=== PATIENT | female | born 1940 | race Caucasian/White ===

== ENCOUNTER 2020-05-30 11:00 | Outpatient (CLI) | payer OTHER, SELFPAY ==
--- NOTE | ~2020-05-30 | XR_ITS ---
EXAMINATION: XR chest 2V DATE: 05/30/2020 11:25 INDICATION: Shortness of breath. TECHNIQUE: Frontal and lateral views of the chest were obtained. COMPARISON: Chest 2 views 11/20/2018, chest CT 01/10/2019 FINDINGS: A calcified right lung nodule is consistent with old granulomatous disease. There is mild a telectasis in right lower lung zone. There is mild atelectasis at left lung apex. No pleural effusion or pneumothorax. Cardiomegaly is noted. Median sternotomy wires and mediastinal surgical clips are s een, likely from prior coronary artery bypass grafting. There is a retained pacer lead in right ventr icle. IMPRESSION: 1. Chronic mild atelectasis in right lower lung zone. 2. Cardiomegaly. Reviewed, dictated and finalized at location A.
== END 2020-05-30 11:01 | disposition home or self-care (01) ==
PROVIDERS: PCP Family Medicine Adolescent Medicine; Visit Provider Nurse Practitioner Family
DX: R06.02 Shortness of breath (principal); I51.7 Cardiomegaly; R91.8 Other nonspecific abnormal finding of lung field
CPT/HCPCS: 71046

== ENCOUNTER 2020-06-06 08:32 | Outpatient (CLI) | payer OTHER, SELFPAY ==
--- NOTE | 2020-06-08 09:18 | WPDSIXMINUTE ---
Six Minute Walk Six Minute Walk: The patients O2 sats started at 98% and dropped as low as 92% Total walk distance 167.64 meters conclusion: This patient does not qualify for home oxygen therapy.
== END 2020-06-06 08:33 | disposition home or self-care (01) ==
PROVIDERS: PCP Family Medicine Adolescent Medicine; Visit Provider Nurse Practitioner Family
DX: R06.02 Shortness of breath (principal)
CPT/HCPCS: 94618

== ENCOUNTER 2020-06-30 08:49 | Outpatient (CLI) | payer OTHER, SELFPAY ==
--- NOTE | ~2020-06-30 | MM_ITS ---
EXAMINATION: MM screening aundrea RT w ivelisse HISTORY: Screening right mammogram, history of left mastectomy TECHNIQUE: Craniocaudal and mediolateral oblique 3-D tomosynthesis images were obtained and synthetic 2-D images were generated. CAD analysis was submitted and interpreted. COMPARISON: 06/18/2019, 06/05/2019, 06/02/2018, 05/28/2017 BREAST PARENCHYMAL COMPOSITION: The breasts are heterogeneously dense, which may obscure small masses . FINDINGS: Scattered benign-appearing calcifications are present. There is no evidence of suspicious m ass, calcification, or architectural distortion to suggest malignancy. There has been no suspicious i nterval change. IMPRESSION: 1. No mammographic evidence of malignancy. 2. Recommend routine screening mammography in one year. BI-RADS Category 2: Benign finding(s). Reviewed, dictated and finalized at location A. RVISOR POLICY CHANGE CLERKS
== END 2020-06-30 08:50 | disposition home or self-care (01) ==
LOC: ANHIMG 08:52
PROVIDERS: PCP Family Medicine Adolescent Medicine; Visit Provider Internal Medicine Medical Oncology
DX: Z12.31 Encounter for screening mammogram for malignant neoplasm of breast (principal)
CPT/HCPCS: 77063; 77067

== ENCOUNTER 2020-07-19 00:43 | Outpatient (CLI) | payer OTHER, SELFPAY ==
[2020-07-19 19:14] LABS: SARS-CoV-2 RNA PCR Negative
== END 2020-07-19 00:44 | disposition home or self-care (01) ==
LOC: ANHCOVIDDT 00:43
PROVIDERS: PCP Family Medicine Adolescent Medicine; Visit Provider Internal Medicine Critical Care Medicine
DX: Z20.828 Contact with and (suspected) exposure to other viral communicable diseases (principal)
CPT/HCPCS: 87635; C9803; U0003

== ENCOUNTER 2020-07-22 07:40 | Outpatient (CLI) | payer OTHER, SELFPAY ==
--- NOTE | 2020-08-31 11:34 | WPDSLEEPSTUD ---
Sleep Study Date of Study: 07/22/20 Ordering Provider: Randy Stark APRN.,Nicole Garcia Interpreting Physician: Sleep Study Type: BiPAP Titration Height: 1.57 m Weight: 83.461 kg Body Mass Index: 33.6 Neck Circumference: 41.91 cm [place]: 0 Reason for Sleep Study patient has a longstanding diagnosis of sleep apnea, which she has been on CPAP therapy for many years. Last sleep study was in 2012, since then her pressure has been increased to 15 cm. The CPAP download however continues to show presence of many residual events. Patient was there for referred for repeat positive airway pressure evaluation. Sleep History Poor quality of sleep, daytime fatigue. Patient however denies daytime sleepiness. Patient has history of heart disease and hypertension. [facility] Past Medical History Medical History Body mass index (bmi) 36.0-36.9, adult (09/05/18) Body mass index (bmi) 37.0-37.9, adult (12/25/18) Coronary artery disease involving [place] heart Encounter for other specified surgical aftercare Hematoma History of left breast cancer History of PR (myocardial infarction) LAD (lymphadenopathy), axillary Low serum IgG2 subclass level Persistent asthma without complication Recurrent cancer of left breast Recurrent infections Family History Family History Mother Family history of osteoarthritis Father Diabetes mellitus Social History Social History Years smoked: 20 Smoking status: Former smoker Tobacco type: cigarettes Alcohol intake: never Substance use: never Gender identity (if verbalized by the patient): Female Medications Home Medications Medication Instructions Recorded Confirmed Type alirocumab 75 mg/mL subcutaneous 75 mg SUB-Q ONCE 07/04/19 08/25/20 History pen injector allopurinol 100 mg tablet 100 mg PO DAILY 07/04/19 08/25/20 History celecoxib 200 mg capsule 200 mg PO DAILY 07/04/19 08/25/20 History clopidogrel 75 mg tablet 75 mg PO DAILY 07/04/19 08/25/20 History furosemide 20 mg tablet 20 mg PO QAM 07/04/19 08/25/20 History metoprolol succinate 25 mg 25 mg PO DAILY 07/04/19 08/25/20 History tablet,extended release 24 hr multivit with tablet PO 07/04/19 08/25/20 History vmz-xpor-GW-#190herbal 18 mg iron-800 mcg-150 mg tablet spironolactone 25 mg tablet 25 mg PO DAILY 07/04/19 08/25/20 History montelukast 10 mg tablet 10 mg PO DAILY #30 tablet 04/16/20 08/25/20 Rx Sleep Procedure Patient underwent CPAP and subsequently BiPAP titration. Sleep Architecture Total recording time 454 minutes, total sleep time 195 minutes. Sleep efficiency 43%, sleep latency 82 minutes, REM latency 84 minutes. Awake after sleep onset 177 minutes. Stage N1 11%, N2 76.2%, N3 0%, stage R 12.8%. Supine sleep 40.3%, supine REM 7.4% Respiratory Analysis during titration patient had 55 apneas, 7 obstructive and 48 centrals. There were 52 hypopneas. Apnea index was 16.9, central apnea index was 14.8, obstructive apnea index 2.2. Hypopnea index 16, apnea-hypopnea index 32.9. Arousals Sixty-six total arousals with index 8.7, 57 were spontaneous 5 related to respiratory events, 4 .due to sonorous Periodic Limb Movements No leg movements Oximetry Data meeting oxygen saturation 94%, lowest saturation 83%,SaO2<90-16.5Min,SaO2<88-8.6Min. Snoring Profile moderate intermittent snoring noted. Cardiac Profile patient appeared to have sinus rhythm, there were multiple PVCs. Average heart rate 59 beats per minute EEG Profile unremarkable EEG. Assessment and Plan Additional Plan patient was using nasal pillows but her mask was switched to air fit F 30 fullface mask of medium size because of significant mouth breathing. A chinstrap was tried but did not help. Patient was started on CPAP therapy at 5 cm and wa
[2020-08-31 12:05] VITALS: BMI 33.6
== END 2020-07-22 07:41 | disposition home or self-care (01) ==
LOC: ANHCSM 07:41
PROVIDERS: PCP Family Medicine Adolescent Medicine; Visit Provider Nurse Practitioner Family
DX: G47.33 Obstructive sleep apnea (adult) (pediatric) (principal)
CPT/HCPCS: 95811

== ENCOUNTER 2020-08-14 17:29 | Emergency (ER) | payer OTHER, SELFPAY ==
[2020-08-14] VITALS (10 sets, daily range): BP systolic 162–220; BP diastolic 65–98; PULSE 69–80; RESP 18; TEMP 36.3; O2SAT 92–98
--- NOTE | ~2020-08-14 | XR_ITS ---
EXAMINATION: XR lumbar spine 2-3V DATE: 08/14/2020 18:29 INDICATION: Low back pain TECHNIQUE: Anteroposterior and lateral views of the lumbar spine, and cone-down lateral view of the l umbosacral junction were obtained. COMPARISON: None. FINDINGS: There is no fracture, dislocation, or subluxation of the lumbar spine. The vertebral body h eights are maintained. There is mild loss of intervertebral disc space narrowing throughout the lumba r spine. Small degenerative osteophytes project from the anterior endplates of multiple vertebral bod ies. Moderate facet osteoarthritis is noted in the lower lumbar spine. There is an IVC filter. Calcif ied atherosclerosis is noted. Surgical clips in the right upper quadrant are likely from prior cholec ystectomy. IMPRESSION: 1. Mild lumbar spondylosis without acute findings. Reviewed, dictated and finalized at location A. PRESS TENDER
[2020-08-14] MEDS: KETOROLAC 15 MG/ML VIAL (*BKC) IV PUSH (18:15)
--- NOTE | 2020-08-14 19:15 | PC.NURSE ---
Report to OSWALDO Kent, to continue care. Pt reports no relief from the toradol IVP. Dr. Zazueta made aware.
--- NOTE | 2020-08-14 19:18 | ED.BACK ---
HPI - Back Pain/Injury General Chief Complaint: Back Pain/Injury Stated Complaint: BACK PAIN Time Seen by Provider: 08/14/20 17:29 History of Present Illness HPI Narrative: Patient is 79-year-old female who presents to the ER with left-sided back pain. Patient went to her PCP yesterday due to left hip pain. She has not taking pain medication as she does not like taking pain medication reports she only tolerates naproxen. She has no recent trauma to her leg or back. No numbness or tingling going down her leg. No chest pain/shortness of breath/nausea/vomiting/abdominal pain. Pain is worse with movement/bending. Patient recently had her Lasix and spironolactone increased to get water off. Related Data Home Medications Medication Instructions Recorded Confirmed alirocumab 75 mg/mL subcutaneous 75 mg SUB-Q ONCE 07/04/19 06/17/20 pen injector allopurinol 100 mg tablet 100 mg PO DAILY 07/04/19 06/17/20 celecoxib 200 mg capsule 200 mg PO DAILY 07/04/19 06/17/20 clopidogrel 75 mg tablet 75 mg PO DAILY 07/04/19 06/17/20 furosemide 20 mg tablet 20 mg PO QAM 07/04/19 06/17/20 metoprolol succinate 25 mg 25 mg PO DAILY 07/04/19 06/17/20 tablet,extended release 24 hr multivit with tablet PO 07/04/19 06/17/20 [id number] 18 mg iron-800 mcg-150 mg tablet spironolactone 25 mg tablet 25 mg PO DAILY 07/04/19 06/17/20 Allergies Allergy/AdvReac Type Severity Reaction Status Date / Time erythromycin base Allergy Severe Itching Verified 08/14/20 17:52 ethyl alcohol Allergy Severe Itching Verified 08/14/20 17:52 amoxicillin Allergy Unknown Unknown Verified 08/14/20 17:52 clavulanic acid Allergy Unknown Unknown Verified 08/14/20 17:52 clonidine Allergy Unknown Unknown Verified 08/14/20 17:52 codeine Allergy Unknown Unknown Verified 08/14/20 17:52 lisinopril Allergy Unknown Unknown Verified 08/14/20 17:52 metronidazole Allergy Unknown Unknown Verified 08/14/20 17:52 morphine Allergy Unknown Unknown Verified 08/14/20 17:52 Penicillins Allergy Unknown Unknown Verified 08/14/20 17:52 Xbbozsl-Pth-Zkl Reductase Allergy Unknown Unknown Verified 08/14/20 17:52 Inhibitor adhesive AdvReac Mild Itching Verified 08/14/20 17:52 Review of Systems Review of Systems: All systems reviewed & are unremarkable except as noted in HPI and below Constitutional: Constitutional: Denies chills, Denies fever(s) and Denies weakness Cardiovascular: Cardiovascular: Denies chest pain and Denies radiating jaw, neck or arm pain Respiratory: Respiratory: Denies cough, Denies dyspnea and Denies wheezing Gastrointestinal: Gastrointestinal: Denies abdominal pain, Denies nausea and Denies vomiting Musculoskeletal: Musculoskeletal: Reports back pain, Reports arthralgias, Denies joint swelling and Denies muscle cramps Neurologic: Denies focal weakness and Denies numbness PMFSH Past Medical History Medical History Body mass index (bmi) 36.0-36.9, adult (09/05/18) Body mass index (bmi) 37.0-37.9, adult (12/25/18) Coronary artery disease involving [place] heart Encounter for other specified surgical aftercare Hematoma History of left breast cancer History of [place] (myocardial infarction) LAD (lymphadenopathy), axillary Low serum IgG2 subclass level Persistent asthma without complication Recurrent cancer of left breast Recurrent infections Family History Family History Mother Family history of osteoarthritis Father Diabetes mellitus Social History Social History Years smoked: 20 Smoking status: Former smoker Tobacco type: cigarettes Alcohol intake: never Substance use: never Gender identity (if verbalized by the patient): Female Exam Narrative: Exam Narrative: GENERAL: Well-appearing, well-nourished, and in no acute distress. HEAD: Normocephalic, atraumatic. CHEST: C
[2020-08-14 19:31] LABS: Anion Gap 11 mmol/L (8-16); Blood Urea Nitrogen 14 mg/dL (7-17); Calcium 9.3 mg/dL (8.4-10.2); Carbon Dioxide 27 mmol/L (22-30); Chloride 99 mmol/L (98-107); Estimated CRCL calculation 42 ml/min; Estimated Glomerular Filt Rate 53; Glucose 119 mg/dL (65-105); Potassium 2.8 mmol/L (3.4-5.0); Sodium 137 mmol/L (137-145)
[2020-08-14] MEDS: CYCLOBENZAPRINE HCL 10 MG TABLET 5 MG PO (20:25)
[2020-08-14] MEDS: POTASSIUM CHLORIDE 20 MEQ TABLET 40 MEQ PO (20:25)
== END 2020-08-14 20:48 | disposition home or self-care (01) ==
PROVIDERS: Emergency Provider Emergency Medicine; PCP Family Medicine Adolescent Medicine
DX: M54.5 Low back pain (principal); E87.6 Hypokalemia; R25.2 Cramp and spasm; I25.10 Atherosclerotic heart disease of native coronary artery without angina pectoris; Z85.3 Personal history of malignant neoplasm of breast; I25.2 Old myocardial infarction; J45.909 Unspecified asthma, uncomplicated; Z87.891 Personal history of nicotine dependence
CPT/HCPCS: 36415; 72100; 80048; 96374; 99284; A9270; J1885

== ENCOUNTER 2020-09-08 08:08 | Outpatient (CLI) | payer OTHER, SELFPAY ==
--- NOTE | ~2020-09-08 | NM_ITS ---
EXAMINATION: NM pulmonary perfusion DATE: 09/08/2020 10:43 INDICATION: Shortness of breath COMPARISON: CT dated 09/08/2020 TECHNIQUE: 5.5 mCi Tc-99m MAA by intravenous route. Scintigraphic images of the chest were obtained. FINDINGS: Cardiomegaly. Small perfusion defect at the right middle lobe corresponding to a thin band of atelect asis on prior CT. Additional small perfusion defect along the caudal aspect of the left major fissure corresponding to a paracardial fat on prior CT . No other perfusion defects appreciated. IMPRESSION: 1. Low probability for pulmonary embolism. 2. Cardiomegaly. Reviewed, dictated and finalized at location B. RATOR INSERTER
--- NOTE | ~2020-09-08 | CT_ITS ---
EXAMINATION: CT diagnostic chest wo con EXAM DATE: 09/08/2020 09:07 INDICATION: R06.02 - Shortness of breath . Sided breast cancer. TECHNIQUE: Spiral CT of the chest without contrast. Axial, coronal and sagittal images were reviewe d. Coronal maximum intensity pixel images of chest reviewed. The dose-length product (DLP) for this examination was 715.87 mGy-cm. The exposure was tailored according to patient size (auto mA exposur e control), and iterative reconstruction (ASIR) was used as additional dose reduction technique. Comp arison is made to prior examination from 01/10/2019. FINDINGS: There is right lower lobe granuloma. Linear right basilar subsegmental atelectasis or scar ring along the minor and major fissure confluence with interval improvement. The main, central pulmon anuradha arteries are dilated which can indicate elevated pulmonary arterial pressure, pulmonary arterial hypertension. Trace pleural effusions. Tracheobronchial tree is patent. There is no mediastinal, hilar or axillary lymphadenopathy. There is no pneumothorax. Pacemaker/AICD lead. Surgical changes from left mastectomy. There is cardiomegaly. There is pulmonary vascular congestion. There are ster notomy wires, and cardiac/coronary surgical changes. Correlate with prior history. There is small sli ding gastroesophageal hiatal hernia. Upper abdomen is unremarkable. There is mild to moderate thor acic spondylosis without osteoblastic or osteolytic lesions identified. IMPRESSION: 1. Cardiomegaly, congestion. Pulmonary arterial hypertension. 2. Linear right basilar subsegmental atelectasis. Reviewed, dictated and finalized at location A. INUOUS YARN DYEING MACHINE OPERATOR
--- NOTE | ~2020-09-08 | XR_ITS ---
EXAMINATION: XR chest 2V EXAM DATE: 09/08/2020 08:59 INDICATION: R06.02 - Shortness of breath TECHNIQUE: Frontal and lateral projections of the chest obtained and reviewed. Comparison is made to prior examination from 05/30/2020. FINDINGS: Cardiac pacemaker lead. Sternotomy wires are present without findings to suggest sternal d ehiscence. Right lower lobe granuloma. The cardiac silhouette is enlarged. There is pulmonary vascula r congestion. No confluent consolidation, pneumothorax or pleural effusion suspected. There is aortic arteriosclerosis. There are mild bony degenerative changes. IMPRESSION: Cardiomegaly, pulmonary vascular congestion. Reviewed, dictated and finalized at location A. CAL SALES REPRESENTATIVE
--- NOTE | ~2020-09-08 | US_ITS ---
EXAMINATION: US venous doppler [facility] DATE: 09/08/2020 08:51 INDICATION: Lower limb swelling TECHNIQUE: Grayscale ultrasound images without and with compression and Doppler ultrasound images of the bilateral lower extremity veins were obtained. COMPARISON: None. FINDINGS: The visualized portions of right common femoral vein, profunda (deep) femoral vein, femoral vein, pop liteal vein, posterior tibial veins, peroneal veins, gastrocnemius vein and greater saphenous vein ou tflow are patent. The visualized portions of left common femoral vein, profunda femoral vein, femoral vein, popliteal v ein, posterior tibial veins, peroneal veins, gastrocnemius vein and greater saphenous vein outflow ar e patent. IMPRESSION: 1. No deep venous thrombosis in either lower limb. Reviewed, dictated and finalized at location B. MBLER CARDS AND ANNOUNCEMENTS
== END 2020-09-08 08:09 | disposition home or self-care (01) ==
PROVIDERS: PCP Family Medicine Adolescent Medicine; Visit Provider Nurse Practitioner Family
DX: R06.02 Shortness of breath (principal); R60.0 Localized edema; I51.7 Cardiomegaly; J84.9 Interstitial pulmonary disease, unspecified; I27.20 Pulmonary hypertension, unspecified; J98.11 Atelectasis
CPT/HCPCS: 71046; 71250; 78580; 93970; A9540

== ENCOUNTER 2020-10-27 15:58 | Emergency (ER) | payer OTHER, SELFPAY ==
[2020-10-27] VITALS (8 sets, daily range): BP systolic 121–136; BP diastolic 61–95; PULSE 56–70; RESP 18–32; TEMP 36.7; O2SAT 97–99
--- NOTE | ~2020-10-27 | XR_ITS ---
EXAMINATION: XR chest 1V portable EXAM DATE: 10/27/2020 17:14 INDICATION: Chest congestion. History heart attack, hypertension, asthma. TECHNIQUE: Portable AP frontal chest x-ray was obtained. Comparison is made to prior examination from 09/08/2020. FINDINGS: Lead from cardiac pacemaker/AICD device without pack, The tip of this appears quite low ove rlying the left upper quadrant, but this could be projectional, given how low the sternotomy wires al so appear compared to prior studies. There is cardiomegaly and pulmonary vascular congestion. Ill-defined bilateral airspace disease which is likely edema or infection. Sternotomy wires. No pneumothorax or pleural effusion. There are bony degenerative changes. There is aortic arteriosclerosis. IMPRESSION: Findings consistent with CHF exacerbation. Infection not excludable. Reviewed, dictated and finalized at location A. IMPRESSION: Findings consistent with CHF exacerbation. Infection not excludable .
--- NOTE | 2020-10-27 16:05 | ECG_ITS ---
Measurements Intervals [place] Rate: 63 P: 204 PA: 148 QRS: 0 QRSD: 104 T: 140 QT: 402 QTc: 412 Interpretive Statements SINUS RHYTHM DELAYED PRECORDIAL R/S TRANSITION POSSIBLE LEFT VENTRICULAR HYPERTROPHY INFERIOR INFARCT, AGE INDETERMINATE BORDERLINE ST-T WAVE ABNORMALITY- LAT/HIGH LAT LEADS BASELINE ARTIFACT- I, II, III, AVR, AVL, AVF, V4-V6 ABNORMAL ECG Electronically Signed On 10-29-2020 13:00:36 CDT by Jc Barbosa D.O.
--- NOTE | 2020-10-27 16:14 | ED.GENADULT ---
HPI - General Adult General Chief complaint: Dizziness Stated complaint: dizzy Time Seen by Provider: 10/27/20 16:08 Source: patient and family (daughter) Mode of arrival: ambulatory Limitations: no limitations History of Present Illness HPI narrative: 80-year-old female that called her daughter about 2 hours ago stating that she was very dizzy. She did not fall. She does deny any recent illness or change in medication. She is concerned however that she may have mistakenly taken 2 of her heart pills this morning. She states while she is laying still she feels fine. She does get dizzy if she turns her head. Onset (ago): hour(s) Severity: mild Exacerbating factors: movement Associated symptoms: denies other symptoms Related Data Home Medications Medication Instructions Recorded Confirmed alirocumab 75 mg/mL subcutaneous 75 mg SUB-Q ONCE 07/04/19 08/25/20 pen injector allopurinol 100 mg tablet 100 mg PO DAILY 07/04/19 08/25/20 celecoxib 200 mg capsule 200 mg PO DAILY 07/04/19 08/25/20 clopidogrel 75 mg tablet 75 mg PO DAILY 07/04/19 08/25/20 furosemide 20 mg tablet 20 mg PO QAM 07/04/19 08/25/20 metoprolol succinate 25 mg 25 mg PO DAILY 07/04/19 08/25/20 tablet,extended release 24 hr multivit with tablet PO 07/04/19 08/25/20 [id number]-KK-#[id number] 18 mg iron-800 mcg-150 mg tablet spironolactone 25 mg tablet 25 mg PO DAILY 07/04/19 08/25/20 Allergies Allergy/AdvReac Type Severity Reaction Status Date / Time erythromycin base Allergy Severe Itching Verified 10/27/20 16:12 ethyl alcohol Allergy Severe Itching Verified 10/27/20 16:12 amoxicillin Allergy Unknown Unknown Verified 10/27/20 16:12 clavulanic acid Allergy Unknown Unknown Verified 10/27/20 16:12 clonidine Allergy Unknown Unknown Verified 10/27/20 16:12 codeine Allergy Unknown Unknown Verified 10/27/20 16:12 lisinopril Allergy Unknown Unknown Verified 10/27/20 16:12 metronidazole Allergy Unknown Unknown Verified 10/27/20 16:12 morphine Allergy Unknown Unknown Verified 10/27/20 16:12 Penicillins Allergy Unknown Unknown Verified 10/27/20 16:12 Cgxldfi-Bpz-Rpd Reductase Allergy Unknown Unknown Verified 10/27/20 16:12 Inhibitor adhesive AdvReac Mild Itching Verified 10/27/20 16:12 Review of Systems Review of Systems: All systems reviewed & are unremarkable except as noted in HPI and below PMFSH Past Medical History Medical History Body mass index (bmi) 36.0-36.9, adult (09/05/18) Body mass index (bmi) 37.0-37.9, adult (12/25/18) Coronary artery disease involving [place] heart Encounter for other specified surgical aftercare Hematoma History of left breast cancer History of [place] (myocardial infarction) LAD (lymphadenopathy), axillary Low serum IgG2 subclass level Persistent asthma without complication Recurrent cancer of left breast Recurrent infections Family History Family History Mother Family history of osteoarthritis Father Diabetes mellitus Social History Social History Years smoked: 20 Smoking status: Former smoker Tobacco type: cigarettes Alcohol intake: never Substance use: never Gender identity (if verbalized by the patient): Female Exam Const: General: no acute distress and alert HENMT: Head: normal to inspection Eyes: Conjunctivae: conjunctivae normal Pupils: Equal, round and reactive pupils present Resp: Effort & Inspection: labored (slightly) Auscultation: rales (bases) Cardio: Rate: bradycardic Rhythm: regular rhythm GI: GI Palp: Yes Soft to palpation Skin: General skin exam: normal color Extrem: General: edema bilateral (feet and hands) Psych: Mental Status: mental status grossly normal Course Course Emergency Course: Patient has had extensive cardiac work-up last year that showed mild pulmonary hypertension, normal right hea
[2020-10-27 16:30] LABS: Basophils Absolute Auto 0.1 K/mm3 (0.0-0.1); Basophils Percent Auto 0.5 % (0.2-1.2); Eosinophils Absolute Auto 0.1 K/mm3 (0-0.3); Eosinophils Percent Auto 1.1 % (0-4.4); Hematocrit 45.7 % (37.0-47.0); Hemoglobin 14.3 g/dL (12.0-15.0); Immature Granulocyte Absolute 0.04 K/mm3 (0.00-0.031); Immature Granulocyte Percent A 0.4 % (0-0.5); Immature Platelet Fraction Pct 3.9 % (0.9-11.2); Lymphocytes Absolute Auto 2.32 K/mm3 (0.9-3.2); Lymphocytes Percent Auto 22.8 % (18.3-44.2); Mean Corpuscular HGB Conc 31.3 g/dl (32-36); Mean Corpuscular Hemoglobin 25.2 pg (26-34); Mean Corpuscular Volume 80.6 fl (80-100); Mean Platelet Volume 10.9 fl (7.4-10.4); Monocytes Absolute Auto 1.1 K/mm3 (0.1-0.6); Monocytes Percent Auto 10.3 % (2.6-8.5); Neutrophils Absolute Auto 6.6 K/mm3 (1.3-6.7); Neutrophils Percent Auto 64.9 % (45.5-73.1); Platelet Count Result 232 k/mm3 (150-375); Red Blood Count 5.67 M/mm3 (4.2-5.4); Red Cell Distribution Width 14.8 % (11.5-14.5); White Blood Count 10.2 K/mm3 (4.5-10.0)
[2020-10-27 17:03] LABS: Alanine Aminotransferase 21 U/L (4-35); Albumin Level 4.4 g/dL (3.5-5.1); Alkaline Phosphatase 118 U/L (38-126); Anion Gap 13 mmol/L (8-16); Aspartate Amino Transferase 29 U/L (14-36); Bilirubin,Total 1.1 mg/dL (0.2-1.3); Blood Urea Nitrogen 37 mg/dL (7-17); Calcium 9.4 mg/dL (8.4-10.2); Carbon Dioxide 22 mmol/L (22-30); Chloride 106 mmol/L (98-107); Estimated CRCL calculation 30 ml/min; Estimated Glomerular Filt Rate 36; Glucose 127 mg/dL (65-105); Potassium 4.1 mmol/L (3.4-5.0); Sodium 141 mmol/L (137-145)
[2020-10-27 17:15] LABS: Troponin I 0.014 ng/mL (0.000-0.034)
== END 2020-10-27 18:44 | disposition home or self-care (01) ==
PROVIDERS: Physician Assistant; Emergency Provider Emergency Medicine; PCP Family Medicine Adolescent Medicine
DX: I50.9 Heart failure, unspecified (principal); T65.91XA Toxic effect of unspecified substance, accidental (unintentional), initial encounter; I25.10 Atherosclerotic heart disease of native coronary artery without angina pectoris; J45.909 Unspecified asthma, uncomplicated; Z85.3 Personal history of malignant neoplasm of breast; I25.2 Old myocardial infarction; Z87.891 Personal history of nicotine dependence; R94.31 Abnormal electrocardiogram [ECG] [EKG]
CPT/HCPCS: 36415; 71045; 80053; 84484; 85025; 85055; 93005; 99284

== ENCOUNTER 2020-12-10 14:50 | Outpatient (RCR) | payer OTHER, SELFPAY ==
--- NOTE | 2020-12-10 16:08 | PTOPEVAL ---
PHYSICAL THERAPY EVALUATION AND PLAN OF CARE 12-10-20 Thank you for referring Jacqueline Duenas to [facility] for the diagnosis of L hip trochanteric bursitis. Jacqueline's plan of care for therapy? is 0-2x/week for 4 weeks. She is independent with the issued HEP and is not having any hip pain. She is to call if she had any questions or needs any additional treatment. Please review, sign, date and return this plan of care NICK. I agree with and certify that the following plan of care is medically necessary. Referring Physician Date Attending Provider: Michael Jeter MD PT Outpatient Evaluation Document 12/10/20 15:10 VANESSA (Rec: 12/10/20 16:08 VANESSA [id number]) Past Medical History Source of Past Medical History Patient Neurological History Hx Neurological Disorders No Significant History Cardiovascular History Hx Coronary Stent Yes Hx Hypertension Yes: meds Respiratory History Hx Sleep Apnea Yes: have BiPAP for sleeping Hx Other Respiratory Disorders Yes: had sinus surgery Gastrointestinal History Hx Cholecystectomy Yes Musculoskeletal History Hx Orthopedic Surgery Yes: B TKR; Reproductive History Hx Hysterectomy Yes Other History Hx Cancer Yes: breast cancer 2x- Hx Chemotherapy Yes Hx Radiation Therapy Yes Evaluation Information Problem Diagnosis L hip trochanteric bursitis Onset November 2019 Subjective Information gradual increase in hip pain, Query Text:As Reported By Patient/ chronic hip pain; had Family injection 11-20-20 and pain is no longer in hip; Diagnostic Tests X-Rays For This Problem Yes: per pt- bursitis of hip Previous Treatments Previous Treatments For This Problem no previous PT Prior Level of Function Activity Level (Last 3 Months) Occupation retired Activity of Daily Living Ability Independent Indoor/Home Mobility Independent Community Mobility Independent Stairs Ability Independent Functional Cognition (Planning, Shopping Independent , Taking Medications) Cooking Yes Cleaning No Laundry Yes Shopping Yes Driving Yes Home Setting Home Type House Living Situation With Minor Child Mobility Assistive Devices (Used Last 3 None Months) Comments Additional Prior Level of Function 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
--- NOTE | 2021-01-16 16:23 | PCPTNOTE ---
PHYSICAL THERAPY DISCHARGE 01-16-21 Attending Provider: Michael Jeter MD Patient:Jacqueline Duenas Date of :1940 Mrs. Duenas has not returned for any further treatments since the PT evaluation 12/10/2020,for the diagnosis of L hip trochanteric bursitis. Therefore she will be discharged at this time. She was instructed on a home exercise program and had decreased pain after the injection. And was to call if she needed additional therapy after the eval. The goals were not addressed. Thank you for referring Jacqueline to [facility]. Please review, sign, date and return this discharge summary NICK. I have been updated about the patient's current status and I agree with discharge from the above service at this time. Referring Physician Date
== END 2021-01-19 09:31 | disposition home or self-care (01) ==
LOC: ANHPT 14:50
PROVIDERS: PCP Family Medicine Adolescent Medicine; Visit Provider Orthopaedic Surgery
DX: M70.62 Trochanteric bursitis, left hip (principal)
CPT/HCPCS: 97161

== ENCOUNTER 2020-12-15 10:07 | Inpatient (IN) | payer OTHER, SELFPAY ==
[2020-12-15] VITALS (27 sets, daily range): BP systolic 140–210; BP diastolic 78–168; PULSE 68–95; RESP 18–28; TEMP 35.9–36.8; O2SAT 91–100; BMI 36.6
--- NOTE | ~2020-12-15 | US_ITS ---
EXAMINATION: US venous doppler [facility] DATE: 12/16/2020 08:56 INDICATION: Bilateral lower limb swelling TECHNIQUE: [place] scale images without and with compression and Doppler images of the bilateral lower e xtremity veins were obtained. COMPARISON: 09/08/2020 FINDINGS: The right common femoral vein, [place] femoral vein, femoral vein, popliteal vein, peroneal trunk, p osterior tibial veins, and greater saphenous vein are patent. The left common femoral vein, profunda femoral vein, femoral vein, popliteal vein, peroneal trunk, po sterior tibial veins, and greater saphenous vein are patent. IMPRESSION: 1. Patent bilateral lower extremity veins. No evidence of deep venous thrombosis. Reviewed, dictated and finalized at location A. IMPRESSION: 1. Patent bilateral lower extremity veins. No evidence of deep venous thrombosi s.
--- NOTE | ~2020-12-15 | XR_ITS ---
EXAMINATION: XR chest 2V DATE: 12/15/2020 11:21 INDICATION: Hypertension. Dizziness. Lower extremity weakness. TECHNIQUE: frontal and lateral views of the chest were obtained. COMPARISON: Chest radiograph dated 10/27/2020 FINDINGS: Interval decrease in opacities in the bilateral lower lung zone now with relatively streaky appearanc e favoring atelectasis over pneumonia. Calcified right lower lobe nodule along with calcified right h ilar lymph nodes consistent with old granulomatous disease. No pleural effusion or pneumothorax. Card iomegaly. Single lead pacemaker/AICD which extends from the left pectoral region with distal lead tip projecting over the expected location of the apex of the right ventricle. The pacemaker device has b een explanted. Median sternotomy wires and mediastinal surgical clips are seen, likely from prior cor onary artery bypass grafting. IMPRESSION: 1. Interval decrease in now mild bibasilar opacities and favor atelectasis over pneumonia. 2. Cardiomegaly. Reviewed, dictated and finalized at location A.
--- NOTE | ~2020-12-15 | CT_ITS ---
EXAMINATION: CT brain wo con INDICATION: Dizziness and weakness, history of breast cancer COMPARISON: 07/20/2019 TECHNIQUE: Standard unenhanced head CT. The dose-length product (DLP) was 605.33 mGy-cm. The mA was a djusted according to patient size. Iterative reconstruction technique was employed. FINDINGS: There is no acute intraparenchymal hemorrhage. No evidence of mass lesion. A small area of loss of torres-white differentiation in the left parietal lobe, likely old infarct. There is mild periv entricular and subcortical hypodensity probably related to small vessel ischemic disease. There is mi ld prominence of the sulci and ventricles related to cerebral atrophy. Intracranial calcified cerebra l atherosclerosis is noted. There are no extra-axial collections. There is no mass effect or midline shift. Changes in the globes are likely from ocular lens surgery. There is near complete opacificati on of the right maxillary sinus. IMPRESSION: 1. No acute intracranial abnormality. 2. Age related findings. 3. 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 Reviewed, dictated and finalized at location A.
--- NOTE | 2020-12-15 10:38 | ECG_ITS ---
Measurements Intervals [place] Rate: 77 P: 58 MD: 208 QRS: -13 QRSD: 103 T: 121 QT: 364 QTc: 413 Interpretive Statements SINUS RHYTHM WITH SINUS ARRHYTHMIA DELAYED PRECORDIAL R/S TRANSITION LEFT VENTRICULAR HYPERTROPHYWITH ST-T CHANGE INFERIOR INFARCT, AGE INDETERMINATE ABNORMAL ECG Electronically Signed On 12-15-2020 13:29:23 CDT by Jc Barbosa D.O.
--- NOTE | 2020-12-15 10:40 | PC.NURSE ---
since yesterday I couldn't walk, felt dizzy and weak , does not use ambulatory aids not unless I have to . Compliant with meds, states BLE have been more swollen, for about a month or more . Hypertensive BP 193/92 the top number usually runs 140's , denies CP, BUTLER, denies home O2.
[2020-12-15] MEDS: MECLIZINE HCL 25 MG TABLET PO (10:48)
[2020-12-15] MEDS: hydrALAZINE HCL 20 MG/ML VIAL 10 MG IV PUSH ×2 (11:10→18:42)
[2020-12-15 11:39] LABS: Basophils Percent Auto 0.5 % (0.2-1.2); Eosinophils Absolute Auto 0.1 K/mm3 (0-0.3); Eosinophils Percent Auto 1.7 % (0-4.4); Hematocrit 41.9 % (37.0-47.0); Hemoglobin 12.9 g/dL (12.0-15.0); Immature Granulocyte Absolute 0.02 K/mm3 (0.00-0.031); Immature Granulocyte Percent A 0.3 % (0-0.5); Lymphocytes Absolute Auto 1.52 K/mm3 (0.9-3.2); Lymphocytes Percent Auto 23.6 % (18.3-44.2); Mean Corpuscular HGB Conc 30.8 g/dl (32-36); Mean Corpuscular Hemoglobin 24.2 pg (26-34); Mean Corpuscular Volume 78.8 fl (80-100); Mean Platelet Volume 10.1 fl (7.4-10.4); Monocytes Absolute Auto 0.6 K/mm3 (0.1-0.6); Monocytes Percent Auto 9.5 % (2.6-8.5); Neutrophils Absolute Auto 4.2 K/mm3 (1.3-6.7); Neutrophils Percent Auto 64.4 % (45.5-73.1); Platelet Count Result 176 k/mm3 (150-375); Red Blood Count 5.32 M/mm3 (4.2-5.4); Red Cell Distribution Width 17.7 % (11.5-14.5); White Blood Count 6.4 K/mm3 (4.5-10.0)
[2020-12-15 11:50] LABS: Anion Gap 6 mmol/L (8-16); Blood Urea Nitrogen 24 mg/dL (7-17); Calcium 9.6 mg/dL (8.4-10.2); Carbon Dioxide 26 mmol/L (22-30); Chloride 107 mmol/L (98-107); Estimated CRCL calculation 39 ml/min; Estimated Glomerular Filt Rate 48; Glucose 101 mg/dL (65-105); Potassium 3.4 mmol/L (3.4-5.0); Sodium 139 mmol/L (137-145)
[2020-12-15 11:59] LABS: NT Pro B Type Natriuretic Pept 5160 pg/mL (5-100)
[2020-12-15 12:11] LABS: Add Urine Microscopic? YES; Appearance Urine Cloudy (Clear); Bacteria Urine 2+ /hpf; Bilirubin Urine Negative (Negative); Blood Urine Negative (Negative); Color Urine Yellow (Yellow); Glucose Urine UA Negative (Negative); Ketones Urine Negative (Negative); Leukocyte Esterase Ur 1+ LEU/UL (Negative); Mucus Urine Rare /lpf; Nitrate Urine Positive (Negative); Protein Urine 3+ mg/dL (Negative); Specific Grav Ur 1.015 (1.001-1.035); Squamous Epithelial Cell Urine Moderate /hpf (Few)
[2020-12-15] MEDS: FUROSEMIDE INJ 40 MG/4 ML VIAL IV PUSH ×2 (12:57→20:33)
--- NOTE | 2020-12-15 13:06 | ED.GENADULT ---
HPI - General Adult General Chief complaint: Dizziness Stated complaint: DIZZY,WEAKNESS History of Present Illness HPI narrative: Patient is an 80-year-old female who presents ER with shortness of breath and dizziness. Patient reports she has some chronic shortness of breath that is increased over the last week and associated with increasing leg edema. This morning she got up to walk and only made a few steps before becoming even more short of breath as well as dizzy. She is not having headache/nausea/vomiting. She does report chronic sinus congestion with frontal sinus pressure. No ear pain. No history of peripheral vertigo per patient. Denies fevers or chills or sweats. No productive cough. Reports compliance with home medications. Related Data Home Medications Medication Instructions Recorded Confirmed alirocumab 75 mg/mL subcutaneous 75 mg SUB-Q ONCE 07/04/19 12/05/20 pen injector allopurinol 100 mg tablet 100 mg PO DAILY 07/04/19 12/05/20 celecoxib 200 mg capsule 200 mg PO DAILY 07/04/19 12/05/20 clopidogrel 75 mg tablet 75 mg PO DAILY 07/04/19 12/05/20 furosemide 20 mg tablet 20 mg PO QAM 07/04/19 12/05/20 metoprolol succinate 25 mg 25 mg PO DAILY 07/04/19 12/05/20 tablet,extended release 24 hr multivit with tablet PO 07/04/19 12/05/20 [id number] 18 mg iron-800 mcg-150 mg tablet spironolactone 25 mg tablet 25 mg PO DAILY 07/04/19 12/05/20 Allergies Allergy/AdvReac Type Severity Reaction Status Date / Time erythromycin base Allergy Severe Itching Verified 12/15/20 10:15 ethyl alcohol Allergy Severe Itching Verified 12/15/20 10:15 amoxicillin Allergy Unknown Unknown Verified 12/15/20 10:15 clavulanic acid Allergy Unknown Unknown Verified 12/15/20 10:15 clonidine Allergy Unknown Unknown Verified 12/15/20 10:15 codeine Allergy Unknown Unknown Verified 12/15/20 10:15 lisinopril Allergy Unknown Unknown Verified 12/15/20 10:15 metronidazole Allergy Unknown Unknown Verified 12/15/20 10:15 morphine Allergy Unknown Unknown Verified 12/15/20 10:15 Penicillins Allergy Unknown Unknown Verified 12/15/20 10:15 [id number] Reductase Allergy Unknown Unknown Verified 12/15/20 10:15 Inhibitor adhesive AdvReac Mild Itching Verified 12/15/20 10:15 Review of Systems Review of Systems: All systems reviewed & are unremarkable except as noted in HPI and below Constitutional: Constitutional: Denies chills, Denies fever(s) and Denies weakness ENT: Reports dizziness, Reports nasal congestion and Denies sore throat Cardiovascular: Cardiovascular: Denies chest pain, Denies rapid heart rate and Denies radiating jaw, neck or arm pain Respiratory: Respiratory: Denies cough, Reports dyspnea and Denies wheezing Gastrointestinal: Gastrointestinal: Denies abdominal pain, Denies nausea and Denies vomiting Neurologic: Denies headache(s), Denies focal weakness and Denies numbness PMFSH Past Medical History Medical History Body mass index (bmi) 36.0-36.9, adult (09/05/18) Body mass index (bmi) 37.0-37.9, adult (12/25/18) Coronary artery disease involving [place] heart Encounter for other specified surgical aftercare Hematoma History of left breast cancer History of [place] (myocardial infarction) LAD (lymphadenopathy), axillary Low serum IgG2 subclass level Persistent asthma without complication Recurrent cancer of left breast Recurrent infections Family History Family History Mother Family history of osteoarthritis Father Diabetes mellitus Social History Social History Years smoked: 20 Smoking status: Former smoker Tobacco type: cigarettes Alcohol intake: never Substance use: never Gender identity (if verbalized by the patient): Female Exam Narrative: Exam Narrative: GENERAL: Well-appearing, well-nourished, and in no acute distre
--- NOTE | 2020-12-15 14:10 | ADMGEN ---
This patient, Jacqueline Duenas, was admitted to IMU Room 207-01. Patient/family oriented to hospital policies and general routines including ID bracelet, bed and alarms, visiting hours, pain management, procedures, bathroom and other care routines, personal items, smoking policy, room service/diet, and visiting hours. Information on how to activate the Rapid Response Team has been discussed. Patient/Family are encouraged to report perceived risks to care and to ask questions if they do not understand what they are told or what they should do.
[2020-12-15] MEDS: ACETAMINOPHEN 325 MG TABLET 650 MG PO (20:38)
--- NOTE | 2020-12-15 21:30 | PM.IMHP ---
H&P: HPI History of Present Illness Date/Time: 12/15/20 21:30 Chief Complaint: Weak, dizzy, short of breath. Narrative: This is a pleasant 80-year-old female with combined systolic and diastolic congestive heart failure, coronary artery disease with history of STEMI status post CABG, ischemic cardiomyopathy status post ICD insertion and subsequent generator explant, pulmonary hypertension, sleep apnea on CPAP, and hypertension who presented to the emergency department earlier this morning via EMS from home with reports of weakness, dizziness, and shortness of breath. She has mild chronic dyspnea on exertion and lower extremity edema, both which have gotten worse over the past 1 week or so. Upon waking this morning she was feeling increasingly short of breath, dizzy, and weak, prompting the call to 911. She was markedly hypertensive in the emergency department with a blood pressure as high as 210/113 and a chest x-ray showed findings of likely atelectasis. There was no obvious pulmonary congestion however given her edema and elevated proBNP she has been admitted for suspected CHF exacerbation. She has not been hypoxic however was placed on oxygen for her comfort. At the time my evaluation she is feeling better and has gotten up multiple times to urinate. She goes on to say that she does not sleep well most nights and has to get up every couple of hours to use the bathroom due to her diuretics. She denies chest pain, pleuritic pain, and feelings of racing heart. No calf pain or tenderness. She also denies fever, chills, sweats, nausea, and vomiting. No dysphagia or concerns for aspiration. No sick contacts or exposure to those positive for COVID-19. Review of Systems Review of Systems: Narrative: Twelve systems were reviewed with pertinent positives and negatives as per HPI. She frequently has sinus congestion and pressure which is unchanged. No syncope or near syncope. No history of venous thromboembolism. She denies dysuria. No vertigo, auditory visual changes, focal weakness, or paresthesias. Except as documented, all other systems were reviewed and are negative. [facility] Past Medical History Medical History (Updated 12/16/20 @ 00:35 by Terra Alonzo PA-C) Combined congestive systolic and diastolic heart failure Echocardiogram in February 2020 showed moderate global left ventricular systolic dysfunction with diastolic dysfunction and ejection fraction of 40%. There were some hypokinetic segments of the left ventricle noted. Mild aortic stenosis and moderate pulmonary hypertension were also noted. Coronary artery disease involving [place] heart History of left breast cancer Status post mastectomy and chemoradiation. History of [place] (myocardial infarction) (~2013) Hypertension Hypothyroidism Ischemic cardiomyopathy Status post ICD insertion and subsequent generator explant. Low serum IgG2 subclass level Obstructive sleep apnea On CPAP with nasal pillows. Persistent asthma without complication Pulmonary hypertension Surgical History Surgical History (Updated 12/16/20 @ 00:18 by Terra Alonzo PA-C) History of bilateral knee arthroplasty History of cataract extraction History of cholecystectomy History of coronary artery bypass graft (2013) History of left mastectomy (2011) History of partial colectomy (2013) History of sinus surgery (2015) History of thyroidectomy Family History Family History (Updated 12/16/20 @ 00:21 by Terra Alonzo PA-C) Mother Family history of osteoarthritis Father Diabetes mellitus Son Muscular dystrophy Social History Social History (Updated 12/16/20 @ 00:21 by Terra Alonzo PA-C) Social History: Surrogate decision maker: Ирина Duenas and Adela Nielsen, daughters. Code status: Full code. Smoking packs per day: 0.25 Smoking cigarettes per day: 5.0 Years smoked: 8 Smoking pack-years: 2.00 Smoking status: Former smoker Tobacco type: cigarettes Alcohol intake:
[2020-12-16] VITALS (16 sets, daily range): BP systolic 148–158; BP diastolic 51–91; PULSE 58–80; RESP 16–22; TEMP 36.1–36.8; O2SAT 96–100
[2020-12-16 01:32] LABS: D Dimer 0.71 ug/mL (<0.48)
[2020-12-16] MEDS: POTASSIUM CHLORIDE 20 MEQ TABLET.ER PO ×3 (05:02→17:27)
[2020-12-16] MEDS: LEVOTHYROXINE SODIUM 150 MCG TABLET PO (05:03)
[2020-12-16 05:10] LABS: Hematocrit 41.9 % (37.0-47.0); Hemoglobin 12.8 g/dL (12.0-15.0); Mean Corpuscular HGB Conc 30.5 g/dl (32-36); Mean Corpuscular Hemoglobin 24.1 pg (26-34); Mean Corpuscular Volume 78.8 fl (80-100); Mean Platelet Volume 10.4 fl (7.4-10.4); Platelet Count Result 184 k/mm3 (150-375); Red Blood Count 5.32 M/mm3 (4.2-5.4); White Blood Count 6.8 K/mm3 (4.5-10.0)
[2020-12-16 05:27] LABS: Alanine Aminotransferase 35 U/L (4-35); Albumin Level 3.6 g/dL (3.5-5.1); Alkaline Phosphatase 141 U/L (38-126); Anion Gap 4 mmol/L (8-16); Aspartate Amino Transferase 42 U/L (14-36); Bilirubin,Total 2.3 mg/dL (0.2-1.3); Blood Urea Nitrogen 23 mg/dL (7-17); Calcium 9.2 mg/dL (8.4-10.2); Carbon Dioxide 36 mmol/L (22-30); Chloride 100 mmol/L (98-107); Estimated CRCL calculation 38 ml/min; Estimated Glomerular Filt Rate 48; Glucose 96 mg/dL (65-105); Sodium 140 mmol/L (137-145)
[2020-12-16] MEDS: PANTOPRAZOLE 40 MG TABLET PO ×2 (08:17→17:27)
[2020-12-16] MEDS: MONTELUKAST SODIUM 10 MG TABLET PO (08:17)
[2020-12-16] MEDS: allopurinoL 100 MG TABLET 200 MG PO (08:17)
[2020-12-16] MEDS: CHOLECALCIFEROL 1,000 UNITS TABLET 1000 UNITS PO (08:17)
[2020-12-16] MEDS: CLOPIDOGREL BISULFATE 75 MG TABLET PO (08:17)
[2020-12-16] MEDS: ENOXAPARIN 40 MG/0.4 ML SYRINGE SUB-Q (08:18)
[2020-12-16] MEDS: CELECOXIB 200 MG CAPSULE PO (08:18)
[2020-12-16] MEDS: FUROSEMIDE INJ 40 MG/4 ML VIAL 20 MG IV PUSH ×2 (08:19→20:45)
[2020-12-16] MEDS: ACETAMINOPHEN 325 MG TABLET 650 MG PO (08:22)
--- NOTE | 2020-12-16 14:20 | PM.IMPN ---
Progress Note: A&P Assessment and Plan (1) Hypertensive urgency: Code(s): I16.0 - Hypertensive urgency Status: Acute Assessment and Plan: 12/16/20 14:20This is a pleasant 80-year-old female with combined systolic and diastolic congestive heart failure, coronary artery disease with history of STEMI status post CABG, ischemic cardiomyopathy status post ICD insertion and subsequent generator explant, pulmonary hypertension, sleep apnea on CPAP, and hypertension, while ambulating patient felt dizzy and weak an EMS was called and patient was brought to the emergency depart for further evaluation upon arrival her blood pressure was 210/113 clinically patient appeared volume overloaded and her BNP is over 5000 however chest x-ray did not show pulmonary edema, patient is being diuresed her symptoms are improving blood pressure is trending down, will consult director of music therapy for further recommendation will have a PT OT evaluate the patient and will monitor. (2) Lower extremity edema: Code(s): R60.0 - Localized edema Status: Acute Assessment and Plan: Most likely secondary to exacerbation combined systolic diastolic dysfunction patient is being diuresed (3) Shortness of breath: Code(s): R06.02 - Shortness of breath Status: Acute Assessment and Plan: Secondary to exacerbation of combined systolic diastolic dysfunction patient is being diuresed patient's symptoms are improving (4) Obstructive sleep apnea: Code(s): G47.33 - Obstructive sleep apnea (adult) (pediatric) Status: Acute (5) Combined congestive systolic and diastolic heart failure: Code(s): I50.40 - Unspecified combined systolic (congestive) and diastolic (congestive) heart failure Status: Chronic Assessment and Plan: Patient with history of moderate reduced systolic dysfunction with ejection fraction of 40-45% will consult director of music therapy patient may need repeat echo and further recommendation to follow (6) Hypertension: Code(s): I10 - Essential (primary) hypertension Status: Acute Assessment and Plan: Upon arrival patient blood pressure was urgently elevated patient is not on any hypertensive medication however is being diuresed with Lasix her blood pressure is trending down patient be seen by her director of music therapy and further recommendation to follow (7) Hypothyroidism: Code(s): E03.9 - Hypothyroidism, unspecified Status: Acute Assessment and Plan: Will continue home regimen (8) Pulmonary hypertension: Code(s): I27.20 - Pulmonary hypertension, unspecified Status: Acute (9) Coronary artery disease involving [place] heart: Code(s): I25.10 - Atherosclerotic heart disease of [place] coronary artery without angina pectoris Status: Chronic Assessment and Plan: Patient with history of coronary artery disease status post CABG patient clinically stable and will be seen by director of music therapy Additional Plan The patient presents today with increasing shortness of breath and lower extremity edema over the past 1 week or so. This morning she was dizzy and weak and called 911. Blood pressure was quite elevated in the emergency department and this may be the etiology of her dizziness and even her feelings of shortness of breath. Chest x-ray showed findings more consistent with atelectasis and there was no mention of pulmonary vascular congestion. Given her lower extremity edema there were concerns that she may have decompensated heart failure and she was started on IV diuretics. She has actually had a good response with that thus will continue with IV diuresis for now. I think it would be prudent to obtain venous Doppler ultrasounds of the lower extremities to rule out DVT and pulmonary embolism, which could also explain her dizziness and shortness of breath. Blood pressures have improved with diuresis and hydralazine has been ordered p.r.n. Unfortunately she has multipl
--- NOTE | 2020-12-16 19:04 | PM.CNCAR ---
Assessment and Plan Assessment and plan (1) Combined congestive systolic and diastolic heart failure: Code(s): I50.40 - Unspecified combined systolic (congestive) and diastolic (congestive) heart failure Status: Chronic Assessment and Plan: Acute on chronic likely systolic and diastolic CHF aggravated by uncontrolled hypertension. Feeling better with diuresis. Echo if one not yet ordered. Resume carvedilol and losartan. (might switch to Entresto depending on the patient's allergy to lisinopril and echo results) (2) Uncontrolled hypertension: Code(s): I10 - Essential (primary) hypertension Status: Acute Assessment and Plan: Long history of hypertension recently poorly controlled but not on any blood pressure medicines other than furosemide. History of some medication intolerance Discussed the importance of blood pressure control to avoid further episodes of CHF (3) Coronary artery disease involving [place] heart: Code(s): I25.10 - Atherosclerotic heart disease of [place] coronary artery without angina pectoris Status: Chronic Assessment and Plan: History of CAD and CABG, no angina, stable. Taking Repatha. (4) Nonsustained ventricular tachycardia: Code(s): I47.2 - Ventricular tachycardia Status: Acute Assessment and Plan: Twelve beat run of ventricular tachycardia noted. Had a cardiomyopathy in the past with the EF of 20-25% and ICD in 2013 which was explanted in 2017 for radiation therapy to the left breast. (5) Hypokalemia: Code(s): E87.6 - Hypokalemia Status: Acute Assessment and Plan: Chronic hypokalemia; did not tolerate spironolactone well. Supplement. Perhaps eplerinone, depending on pt's course. History of Present Illness History of Present Illness Consult date/time: 12/16/20 19:04 Requesting physician: Paula,Pawan Koch MD Consult reason: congestive heart failure Reason For Visit: uncontrolled hypertension/dizziness/chf Narrative: Jacqueline Anthony is an 80 y.o. female whom we were asked to see at the request of Dr. Mitchell for our advice and opinion regarding her CHF and uncontrolled hypertension. She normally seen by Dr. Draper in our office for her history of CAD, CABG, cardiomyopathy and hypertension. The patient has chronic shortness of breath which has worsened in the last 3-4 weeks especially the last 10 days, with PND, orthopnea, edema and dizziness. She was admitted with uncontrolled hypertension and CHF but is feeling better with IV Lasix. She is on a low-sodium diet and limits her fluid intake at home. She has of lifelong history of hypertension but currently is not taking any antihypertensives other than Lasix 20 mg daily. Infrequent use of nonsteroidals. She states an allergy to clonidine and lisinopril (headache and dizziness, not angioedema), and spironolactone made her feel funny and have a headache. She has been on losartan and carvedilol in the past but not currently, she is not sure why. Review of doctor Marcela notes show that she has had multiple minor and nonspecific drug intolerances including to losartan and amlodipine. On her last visit with him on on 11/12/2020 she had stopped her nifedipine, spironolactone and metoprolol. He recommended she resume her spironolactone and metoprolol. She has not had any problems with CHF for a few years. NSTEMI and 4 vessel CABG in November 2013, EF 20-25% at that time. Postop AFib treated with warfarin, but had some hematochezia. Head is [place] ICD implanted 05/2014. He was explanted in 2016 as she had and prove min of her LV function, EF 53%, no ICD discharges, and it was in the area of intense radiation therapy for her left-sided breast cancer. History of some medication noncompliance. Review of Syst
[2020-12-16] MEDS: carvediloL 3.125 MG TABLET PO (20:44)
[2020-12-16] MEDS: LOSARTAN POTASSIUM 25 MG TABLET PO (20:44)
[2020-12-17] VITALS (17 sets, daily range): BP systolic 113–162; BP diastolic 48–89; PULSE 53–73; RESP 18–22; TEMP 36.1–36.6; O2SAT 94–100
--- NOTE | 2020-12-17 | ECHO_ITS ---
Patient Info Name: Jacqueline Duenas Age: 80 years : 1940 Gender: Female Ht: 62 in Wt: 197 lbs BSA: 2.02 m2 HR: 59 bpm BP: 113 / 89 mmHg Heart Rhythm: Sinus Rhythm Technical Quality: Good Exam Date: 12/17/2020 8:25 AM Exam Location: [facility] Patient Status: Inpatient Admit Date: 12/15/2020 Staff Ordering Physician: Ashley Barfield MD Entry Level Staff Accountant: Randy Beaver, AMRIT, RT Attending Provider: Osito Mitchell MD Referring Physician: Lico LONDON; Exam Type: CA echo dop color flow w con Study Info Indications I50.9 - Heart failure, unspecified Complete two-dimensional, color flow and Doppler transthoracic echocardiogram is performed with contrast to opacify the left ventricle and to improve the deliniation of the left ventricle endocardial borders. Summary 1. Mild left ventricular enlargement with mild concentric hypertrophy. Severe global hypokinesis, worse in the inferior septal segments. Calculated ejection fraction 25%, visual ejection fraction 25-30%. Grade 2 diastolic dysfunction is present. 2. Right ventricular chamber dimension is mildly enlarged, with mild right ventricular hypokinesis. 3. Left atrial chamber dimension is severely enlarged. 4. There is mild aortic valve regurgitation. 5. There is mild to moderate mitral valve regurgitation. 6. There is moderate to severe tricuspid valve regurgitation, which may be induced by the ICD lead. 7. Moderate pulmonary hypertension, estimated pulmonary arterial systolic pressure is 45 mmHg. 8. There is mild pulmonic regurgitation. 9. Normal sinus rhythm. 10. Dilated inferior vena cava with <50% collapse upon inspiration consistent with significantly elevated right atrial pressure, 15 mmHg. Left Ventricle Left ventricular chamber dimension is mildly enlarged. Left ventricular systolic function is severely reduced, estimated at 25-30%. There is mildly increased left ventricular wall thickness. Left ventricular septal wall motion is normal. The left ventricular diastolic function is grade II diastolic dysfunction. Right Ventricle Right ventricular chamber dimension is mildly enlarged, with mild right ventricular hypokinesis. Right ventricular systolic function is reduced. Linear artifact in right ventricle suggestive of catheter(s), pacemaker lead(s), or ICD lead(s). Left Atria Left atrial chamber dimension is severely enlarged. Right Atria Right atrial chamber dimension is normal. Aortic Valve The aortic valve is trileaflet. There is no aortic valve sclerosis. There is no aortic valve stenosis. There is mild aortic valve regurgitation. Pulmonic Valve The pulmonic valve is normal. There is no pulmonic valve stenosis. There is mild pulmonic regurgitation. Mitral Valve The mitral valve has calcified annulus. There is no mitral valve stenosis. There is mild to moderate mitral valve regurgitation. Tricuspid Valve The tricuspid valve leaflets are normal. There is no significant tricuspid valve stenosis. There is moderate to severe tricuspid valve regurgitation, which may be induced by the ICD lead. Moderate pulmonary hypertension, estimated pulmonary arterial systolic pressure is 45 mmHg. Pericardium/Pleural The pericardium appears normal. There is no pericardial effusion. Inferior Vena Cava Dilated inferior vena cava with <50% collapse upon inspiration consistent with significantly elevated right atrial pressure, 15 mmHg. Aorta The aortic root size at the sinus o
[2020-12-17 04:59] LABS: Hematocrit 41.1 % (37.0-47.0); Hemoglobin 12.5 g/dL (12.0-15.0); Mean Corpuscular HGB Conc 30.4 g/dl (32-36); Mean Corpuscular Hemoglobin 24.1 pg (26-34); Mean Corpuscular Volume 79.3 fl (80-100); Mean Platelet Volume 10.6 fl (7.4-10.4); Platelet Count Result 178 k/mm3 (150-375); Red Blood Count 5.18 M/mm3 (4.2-5.4); Red Cell Distribution Width 17.8 % (11.5-14.5); White Blood Count 5.1 K/mm3 (4.5-10.0)
[2020-12-17 05:17] LABS: Anion Gap 3 mmol/L (8-16); Blood Urea Nitrogen 28 mg/dL (7-17); Calcium 9.3 mg/dL (8.4-10.2); Carbon Dioxide 34 mmol/L (22-30); Chloride 101 mmol/L (98-107); Estimated CRCL calculation 32 ml/min; Estimated Glomerular Filt Rate 39; Glucose 106 mg/dL (65-105); Potassium 3.6 mmol/L (3.4-5.0); Sodium 138 mmol/L (137-145)
[2020-12-17] MEDS: LEVOTHYROXINE SODIUM 150 MCG TABLET PO (06:08)
[2020-12-17] MEDS: PERFLUTREN LIPID MICROSPHERES 1.5 ML VIAL DILUTED TO 10 ML TOTAL VOLUME IV PUSH (08:48)
[2020-12-17] MEDS: allopurinoL 100 MG TABLET 200 MG PO (09:29)
[2020-12-17] MEDS: POTASSIUM CHLORIDE 20 MEQ TABLET.ER PO ×3 (09:29→16:25)
[2020-12-17] MEDS: CHOLECALCIFEROL 1,000 UNITS TABLET 1000 UNITS PO (09:30)
[2020-12-17] MEDS: CELECOXIB 200 MG CAPSULE PO (09:30)
[2020-12-17] MEDS: ENOXAPARIN 40 MG/0.4 ML SYRINGE SUB-Q (09:30)
[2020-12-17] MEDS: CLOPIDOGREL BISULFATE 75 MG TABLET PO (09:30)
[2020-12-17] MEDS: PANTOPRAZOLE 40 MG TABLET PO ×2 (09:30→16:25)
[2020-12-17] MEDS: LOSARTAN POTASSIUM 25 MG TABLET PO (09:30)
[2020-12-17] MEDS: carvediloL 3.125 MG TABLET PO ×2 (09:30→21:04)
[2020-12-17] MEDS: FUROSEMIDE INJ 40 MG/4 ML VIAL 20 MG IV PUSH (09:31)
[2020-12-17] MEDS: MONTELUKAST SODIUM 10 MG TABLET PO (09:32)
--- NOTE | 2020-12-17 09:42 | PM.IMPN ---
Progress Note: A&P Assessment and Plan (1) Hypokalemia: Code(s): E87.6 - Hypokalemia Status: Acute (2) Nonsustained ventricular tachycardia: Code(s): I47.2 - Ventricular tachycardia Status: Acute (3) Coronary artery disease involving [place] heart: Code(s): I25.10 - Atherosclerotic heart disease of [place] coronary artery without angina pectoris Status: Chronic (4) Hypertension: Code(s): I10 - Essential (primary) hypertension Status: Acute (5) Combined congestive systolic and diastolic heart failure: Code(s): I50.40 - Unspecified combined systolic (congestive) and diastolic (congestive) heart failure Status: Chronic (6) Shortness of breath: Code(s): R06.02 - Shortness of breath Status: Acute (7) Lower extremity edema: Code(s): R60.0 - Localized edema Status: Acute (8) Hypertensive urgency: Code(s): I16.0 - Hypertensive urgency Status: Acute (9) Pulmonary hypertension: Code(s): I27.20 - Pulmonary hypertension, unspecified Status: Acute (10) Obstructive sleep apnea: Code(s): G47.33 - Obstructive sleep apnea (adult) (pediatric) Status: Acute Additional Plan 12/15/20 The patient presents today with increasing shortness of breath and lower extremity edema over the past 1 week or so. This morning she was dizzy and weak and called 911. Blood pressure was quite elevated in the emergency department and this may be the etiology of her dizziness and even her feelings of shortness of breath. Chest x-ray showed findings more consistent with atelectasis and there was no mention of pulmonary vascular congestion. Given her lower extremity edema there were concerns that she may have decompensated heart failure and she was started on IV diuretics. She has actually had a good response with that thus will continue with IV diuresis for now. I think it would be prudent to obtain venous Doppler ultrasounds of the lower extremities to rule out DVT and pulmonary embolism, which could also explain her dizziness and shortness of breath. Blood pressures have improved with diuresis and hydralazine has been ordered p.r.n. Unfortunately she has multiple allergies to antihypertensives and we will have to monitor her blood pressures closely and see if we can get her blood pressure better controlled. No issues regarding her coronary disease; she is having no chest pain. Patient may use her nasal pillows with the CPAP machine while here at the hospital. Her home medications will be reviewed and resumed as appropriate. 12/16/20 Acute on chronic likely systolic and diastolic CHF aggravated by uncontrolled hypertension. Feeling better with diuresis. Echo if 1 not yet ordered. Resume carvedilol and losartan. (might switch to Entresto depending on the patient's allergy to lisinopril and echo results). Long history of hypertension recently poorly controlled but not on any blood pressure medicines other than furosemide. History of some medication intolerance. Discussed the importance of blood pressure control to avoid further episodes of CHF. Twelve beat run of ventricular tachycardia noted. Had a cardiomyopathy in the past with the EF of 20-25% and ICD in 2013 which was explanted in 2017 for radiation therapy to the left breast. 12/17/20 pt diuresing as anticipated,slight creatinine bump today, will cont to monitor. seen by cardiology possible dc home tomorrow. Needs CHF education. Will order. cont current care. Subjective Date/time seen: 12/17/20 09:42 Speaking on phone when I arrive without any distress on room air. Patient states she is feeling a lot better that her lower extremity swelling is resolving. When asked if she knows about congestive heart failure recommendations she is not aware of fluid restriction, fluid Balance, daily weights, or dietary modifications. Will request CHF Education. Review of Systems Review of Systems: All systems re
--- NOTE | 2020-12-17 17:25 | PM.PNCARD ---
Progress Note: A&P Assessment and Plan (1) Combined congestive systolic and diastolic heart failure: Code(s): I50.40 - Unspecified combined systolic (congestive) and diastolic (congestive) heart failure Status: Chronic Assessment and Plan: Acute on chronic systolic and diastolic CHF, diuresing well and feeling much better. Likely will go home tomorrow w/ early office FU. Will change furosemide to 40 mg po daily. (2) Cardiomyopathy: Code(s): I42.9 - Cardiomyopathy, unspecified Status: Acute Assessment and Plan: Patient has had a relapse of her cardiomyopathy, EF declining to 25-30%. However she really has not been on any medical therapy for her cardiomyopathy since, somewhere along the line, the carvedilol and losartan were discontinued/dropped. Patient relates the allergy she has to lisinopril as headache and dizziness, not angioedema, so Entresto is an option, and a better option than losartan. Will discontinue losartan and start Entresto tomorrow evening (after 36 Hr washout). Hopefully covered by insurance. Probably discharge tomorrow. (3) Uncontrolled hypertension: Code(s): I10 - Essential (primary) hypertension Status: Acute Assessment and Plan: Blood pressure much better now that therapy has been resumed. (4) Nonsustained ventricular tachycardia: Code(s): I47.2 - Ventricular tachycardia Status: Acute Assessment and Plan: Twelve beats of nonsustained VT noted. Patient had an ICD at 1 time but it was explanted when her LV function improved, and she needed radiation therapy to the left breast cancer. She had never required any therapies delivered. Discussed the risk of malignant arrhythmias now that the patient's EF has declined. Typically we will try medical therapy to improve heart function and if EF is less than 30% after 3 months of treatment recommended ICD. However in the interim I have discussed LifeVest use. The patient will consider it but did not seem very interested in pursuing it. (5) PSVT (paroxysmal supraventricular tachycardia): Code(s): I47.1 - Supraventricular tachycardia Status: Acute Assessment and Plan: Some asymptomatic PSVT was noted yesterday; now on low-dose carvedilol. Subjective Date/time seen: 12/17/20 17:25 Interval history: Follow-up for CHF, uncontrolled hypertension Date of service 12/17/2020: Feeling a lot better, off oxygen, can ambulate to the bathroom with no shortness of breath. Edema is a lot better. Diuresed well,, -2700 cc yesterday. Hopes to go home tomorrow. Echo showed 25-30%. Telemetry showed a paroxysmal SVT rate 140 intermittently yesterday evening lasting 1 time few minutes. Also 12 beat run of V-tach. Review of Systems Constitutional: Constitutional: Denies difficulty sleeping and Denies lethargy ENT: Denies nasal congestion Cardiovascular: Cardiovascular: Denies chest pain, Reports pedal edema, Denies leg edema and Denies lightheadedness Respiratory: Respiratory: Denies cough, Denies dyspnea and Denies dyspnea on exertion Gastrointestinal: Gastrointestinal: Denies abdominal pain Genitourinary: Genitourinary: Denies hematuria Musculoskeletal: Musculoskeletal: Reports no additional musculoskeletal complaints Integumentary/Breasts: Skin/Breast: Denies rash Neurologic: Denies confusion Psychiatric: Psychiatric: Reports no additional psychiatric complaints Exam Narrative: Exam Narrative: Conversing with family at bedside Const: General: comfortable and no acute distress HENMT: General nose exam: no epistaxis Eyes: EOM: EOM not intact bilaterally Neck: Neck: supple and no JVD Resp: Effort & Inspection: normal respiratory effort Auscultation: rales (Rales persistent both bases
[2020-12-18] VITALS (14 sets, daily range): BP systolic 146–168; BP diastolic 64–83; PULSE 48–71; RESP 20–24; TEMP 35.7–36.5; O2SAT 96–98
[2020-12-18 05:19] LABS: Hematocrit 41.3 % (37.0-47.0); Hemoglobin 12.4 g/dL (12.0-15.0); Mean Corpuscular Hemoglobin 23.9 pg (26-34); Mean Corpuscular Volume 79.7 fl (80-100); Mean Platelet Volume 10.3 fl (7.4-10.4); Platelet Count Result 183 k/mm3 (150-375); Red Blood Count 5.18 M/mm3 (4.2-5.4); Red Cell Distribution Width 17.6 % (11.5-14.5); White Blood Count 5.4 K/mm3 (4.5-10.0)
[2020-12-18 05:39] LABS: Anion Gap 3 mmol/L (8-16); Blood Urea Nitrogen 35 mg/dL (7-17); Calcium 9.6 mg/dL (8.4-10.2); Carbon Dioxide 32 mmol/L (22-30); Chloride 101 mmol/L (98-107); Estimated CRCL calculation 29 ml/min; Estimated Glomerular Filt Rate 36; Glucose 110 mg/dL (65-105); Potassium 4.2 mmol/L (3.4-5.0); Sodium 136 mmol/L (137-145)
[2020-12-18] MEDS: LEVOTHYROXINE SODIUM 150 MCG TABLET PO (05:47)
[2020-12-18] MEDS: ENOXAPARIN 40 MG/0.4 ML SYRINGE SUB-Q (08:27)
[2020-12-18] MEDS: CHOLECALCIFEROL 1,000 UNITS TABLET 1000 UNITS PO (08:28)
[2020-12-18] MEDS: carvediloL 3.125 MG TABLET PO (08:28)
[2020-12-18] MEDS: PANTOPRAZOLE 40 MG TABLET PO ×2 (08:28→18:30)
[2020-12-18] MEDS: CELECOXIB 200 MG CAPSULE PO (08:28)
[2020-12-18] MEDS: POTASSIUM CHLORIDE 20 MEQ TABLET.ER PO ×3 (08:28→18:30)
[2020-12-18] MEDS: allopurinoL 100 MG TABLET 200 MG PO (08:29)
[2020-12-18] MEDS: MONTELUKAST SODIUM 10 MG TABLET PO (08:33)
[2020-12-18] MEDS: CLOPIDOGREL BISULFATE 75 MG TABLET PO (08:33)
--- NOTE | 2020-12-18 17:56 | PM.PNCARD ---
Progress Note: A&P Assessment and Plan (1) Combined congestive systolic and diastolic heart failure: Code(s): I50.40 - Unspecified combined systolic (congestive) and diastolic (congestive) heart failure Status: Chronic Assessment and Plan: Acute on chronic likely systolic and diastolic CHF aggravated by uncontrolled hypertension. Feeling better with diuresis. Resumed carvedilol and started Entresto which will cause the patient 9 dollars a month. Okay for discharge; patient has a follow-up appointment in our office on 12/26/2020. Continue furosemide 40 mg a day; might go back to baseline of 20 mg daily after the office visit. BMP next week. (2) Uncontrolled hypertension: Code(s): I10 - Essential (primary) hypertension Status: Acute Assessment and Plan: Long history of hypertension recently poorly controlled but not on any blood pressure medicines other than furosemide. History of some medication intolerance and also medication noncompliance Discussed the importance of blood pressure control to avoid further episodes of CHF BP a little high today as I had held her losartan, while switching to Entresto. (3) Coronary artery disease involving [place] heart: Code(s): I25.10 - Atherosclerotic heart disease of [place] coronary artery without angina pectoris Status: Chronic Assessment and Plan: History of CAD and CABG, no angina, stable. Taking Repatha. (4) Nonsustained ventricular tachycardia: Code(s): I47.2 - Ventricular tachycardia Status: Acute Assessment and Plan: Twelve beat run of ventricular tachycardia noted earlier this hospitalization Had a cardiomyopathy in the past with the EF of 20-25% and ICD in 2013 which was explanted in 2016 for radiation therapy to the left breast. Discussed Life Vest yesterday, patient was not interested in pursuing but is reconsidering (5) Hypokalemia: Code(s): E87.6 - Hypokalemia Status: Acute Assessment and Plan: Chronic hypokalemia; did not tolerate spironolactone well. Supplement. Perhaps add eplerinone as an outpatient Subjective Date/time seen: 12/18/20 17:56 Interval history: Follow-up for CHF, uncontrolled hypertension 12/17/2020: Feeling a lot better, off oxygen, can ambulate to the bathroom with no shortness of breath. Edema is a lot better. Diuresed well,, -2700 cc yesterday. Hopes to go home tomorrow. Echo showed 25-30%. Telemetry showed a paroxysmal SVT rate 140 intermittently yesterday evening lasting 1 time few minutes. Also 12 beat run of V-tach. Date of service 12/18/2020: Feeling nearly back to normal, no shortness of breath went up in room, edema improved, eager discharge. Review of Systems Constitutional: Constitutional: Denies difficulty sleeping, Reports fatigue, Denies lethargy and Reports weakness Eyes: Eyes: Reports no additional eye complaints ENT: Denies nasal congestion Cardiovascular: Cardiovascular: Denies chest pain, Reports pedal edema, Denies leg edema, Denies lightheadedness, Denies dyspnea and Denies dyspnea on exertion Respiratory: Respiratory: Denies cough, Denies dyspnea and Denies dyspnea on exertion Gastrointestinal: Gastrointestinal: Denies abdominal pain Genitourinary: Genitourinary: Denies hematuria Musculoskeletal: Musculoskeletal: Reports no additional musculoskeletal complaints Integumentary/Breasts: Skin/Breast: Denies rash Neurologic: Denies confusion and Reports weakness Psychiatric: Psychiatric: Reports no additional psychiatric complaints and Denies confusion Endocrine: Endocrine: Reports fatigue Exam Const: General: comfortable and no acute distress HENMT: Mouth: Yes moist mucous membranes Eyes: EOM: EOMs intact bilaterally Neck: Neck: supple and
--- NOTE | 2020-12-18 18:16 | PM.DS ---
DS: Admitting Diagnosis Admitting Diagnosis Admitting Diagnosis: (1) Hypertensive urgency: (2) Lower extremity edema: (3) Shortness of breath: (4) Obstructive sleep apnea: (5) Combined congestive systolic and diastolic heart failure: (6) Hypertension: (7) Hypothyroidism: (8) Pulmonary hypertension: (9) Coronary artery disease involving [place] heart: DS: Discharge Diagnosis Discharge Diagnosis (1) Hypokalemia: Code(s): E87.6 - Hypokalemia Status: Acute (2) Nonsustained ventricular tachycardia: Code(s): I47.2 - Ventricular tachycardia Status: Acute (3) Coronary artery disease involving [place] heart: Code(s): I25.10 - Atherosclerotic heart disease of [place] coronary artery without angina pectoris Status: Chronic Assessment and Plan: Patient with history of coronary artery disease status post CABG patient clinically stable and will be seen by handy worker (4) Hypertension: Code(s): I10 - Essential (primary) hypertension Status: Acute (5) Combined congestive systolic and diastolic heart failure: Code(s): I50.40 - Unspecified combined systolic (congestive) and diastolic (congestive) heart failure Status: Chronic Assessment and Plan: Patient with history of moderate reduced systolic dysfunction with ejection fraction of 40-45% will consult handy worker patient may need repeat echo -> 25-30% (6) Shortness of breath: Code(s): R06.02 - Shortness of breath Status: Acute (7) Lower extremity edema: Code(s): R60.0 - Localized edema Status: Acute (8) Hypertensive urgency: Code(s): I16.0 - Hypertensive urgency Status: Acute Assessment and Plan: 12/16/20 14:20This is a pleasant 80-year-old female with combined systolic and diastolic congestive heart failure, coronary artery disease with history of STEMI status post CABG, ischemic cardiomyopathy status post ICD insertion and subsequent generator explant, pulmonary hypertension, sleep apnea on CPAP, and hypertension, while ambulating patient felt dizzy and weak an EMS was called and patient was brought to the emergency depart for further evaluation upon arrival her blood pressure was 210/113 clinically patient appeared volume overloaded and her BNP is over 5000 however chest x-ray did not show pulmonary edema, patient is being diuresed her symptoms are improving blood pressure is trending down, will consult handy worker for further recommendation will have a PT OT evaluate the patient and will monitor. (9) Pulmonary hypertension: Code(s): I27.20 - Pulmonary hypertension, unspecified Status: Acute (10) Obstructive sleep apnea: Code(s): G47.33 - Obstructive sleep apnea (adult) (pediatric) Status: Acute DS: Summary Hospital Course Reason for hospitalization: sob Hospital Course: 12/15/20 The patient presents today with increasing shortness of breath and lower extremity edema over the past 1 week or so. This morning she was dizzy and weak and called 911. Blood pressure was quite elevated in the emergency department and this may be the etiology of her dizziness and even her feelings of shortness of breath. Chest x-ray showed findings more consistent with atelectasis and there was no mention of pulmonary vascular congestion. Given her lower extremity edema there were concerns that she may have decompensated heart failure and she was started on IV diuretics. She has actually had a good response with that thus will continue with IV diuresis for now. I think it would be prudent to obtain venous Doppler ultrasounds of the lower extremities to rule out DVT and pulmonary embolism, which could also explain her dizziness and shortness of breath. Blood pressures have improved with diuresis and hydralazine has been ordered p.r.n. Unfortunately she has multiple allergies to antihypertensives and we will have to monitor h
[2020-12-18] MEDS: SACUBITRIL/VALSARTAN 24-26 MG TABLET 1 TAB PO (18:30)
== END 2020-12-18 18:52 | disposition home or self-care (01) | DRG 292 ==
LOC: ANHED 10:40 → ANHIMU 14:05
PROVIDERS: Physician Assistant; Admitting Provider Family Medicine; Emergency Provider Emergency Medicine; PCP Family Medicine Adolescent Medicine; Visit Provider Hospitalist
DX: I11.0 Hypertensive heart disease with heart failure (principal); I47.2 Ventricular tachycardia; I16.0 Hypertensive urgency; I50.43 Acute on chronic combined systolic (congestive) and diastolic (congestive) heart failure; G47.33 Obstructive sleep apnea (adult) (pediatric); E87.6 Hypokalemia; I25.10 Atherosclerotic heart disease of native coronary artery without angina pectoris; I25.5 Ischemic cardiomyopathy; E03.9 Hypothyroidism, unspecified; Z96.653 Presence of artificial knee joint, bilateral; Z85.3 Personal history of malignant neoplasm of breast; I25.2 Old myocardial infarction; Z87.891 Personal history of nicotine dependence; Z95.1 Presence of aortocoronary bypass graft; Z98.42 Cataract extraction status, left eye; Z98.41 Cataract extraction status, right eye; Z90.49 Acquired absence of other specified parts of digestive tract; E66.9 Obesity, unspecified; Z68.35 Body mass index [BMI] 35.0-35.9, adult
CPT/HCPCS: 36415; 70450; 71046; 80048; 80053; 81001; 83880; 84443; 85025; 85027; 85380; 87077; 87086; 87088; 87186; 93005; 93970; 96374; 96375; 97161; 97165; 99285; A9270; C8929; J0360; J0696; J1650; J1940; Q9957

== ENCOUNTER 2020-12-27 05:42 | Observation (INO) | payer OTHER, SELFPAY ==
[2020-12-27] VITALS (19 sets, daily range): BP systolic 133–206; BP diastolic 53–109; PULSE 59–86; RESP 20–27; TEMP 36.1–36.6; O2SAT 96–100; BMI 35.6
--- NOTE | ~2020-12-27 | XR_ITS ---
XR chest 1V portable DATE: 12/27/2020 06:11 INDICATION: Chest pain TECHNIQUE: Portable upright AP chest on 12/27/2020 at 0610 hours COMPARISON: 01/11/2021 AP and lateral chest FINDINGS: Status post sternotomy. Cardiomegaly. Aortic calcification. There is pulmonary vascular congestion and redistribution. No pleural effusion or pneumothorax is christiano dent. Left A pacemaker device is been removed but the right ventricular AICD/pacemaker lead remains. Diffuse osteopenia. IMPRESSION: Cardiomegaly, pulmonary vascular congestion, consistent with congestive heart failure Reviewed, dictated and finalized at location A. IMPRESSION: Cardiomegaly, pulmonary vascular congestion, consistent with conges tive heart failure
--- NOTE | 2020-12-27 05:49 | ECG_ITS ---
Measurements Intervals [place] Rate: 76 P: 71 DE: 223 QRS: -3 QRSD: 100 T: 114 QT: 350 QTc: 395 Interpretive Statements SINUS RHYTHM WITH FIRST DEGREE AV BLOCK VENTRICULAR PREMATURE COMPLEXES DELAYED PRECORDIAL R/S TRANSITION POSSIBLE LEFT VENTRICULAR HYPERTROPY INFERIOR INFARCT, AGE INDETERMINATE BORDERLINE ST-T WAVE ABNORMALITY- LAT/HIGH LAT LEADS BASELINE ARTIFACT- II, III, AVF, V4-V6 ABNORMAL ECG Electronically Signed On 12-27-2020 7:49:53 CDT by Jc Barbosa D.O.
--- NOTE | 2020-12-27 05:53 | PC.NURSE ---
asa 324mg given enroute by ems.
--- NOTE | 2020-12-27 06:05 | PC.NURSE ---
CXR completed at bedside.
[2020-12-27 06:23] LABS: Basophils Percent Auto 0.2 % (0.2-1.2); Eosinophils Absolute Auto 0.1 K/mm3 (0-0.3); Eosinophils Percent Auto 1.1 % (0-4.4); Hematocrit 40.5 % (37.0-47.0); Hemoglobin 12.1 g/dL (12.0-15.0); Immature Granulocyte Absolute 0.05 K/mm3 (0.00-0.031); Immature Granulocyte Percent A 0.6 % (0-0.5); Lymphocytes Absolute Auto 1.61 K/mm3 (0.9-3.2); Lymphocytes Percent Auto 19.5 % (18.3-44.2); Mean Corpuscular HGB Conc 29.9 g/dl (32-36); Mean Corpuscular Hemoglobin 23.9 pg (26-34); Mean Platelet Volume 11.2 fl (7.4-10.4); Monocytes Absolute Auto 0.9 K/mm3 (0.1-0.6); Monocytes Percent Auto 11.3 % (2.6-8.5); Neutrophils Absolute Auto 5.6 K/mm3 (1.3-6.7); Neutrophils Percent Auto 67.3 % (45.5-73.1); Platelet Count Result 212 k/mm3 (150-375); Red Blood Count 5.06 M/mm3 (4.2-5.4); Red Cell Distribution Width 18.4 % (11.5-14.5); White Blood Count 8.3 K/mm3 (4.5-10.0)
[2020-12-27 06:33] LABS: Anion Gap 7 mmol/L (8-16); Blood Urea Nitrogen 29 mg/dL (7-17); Calcium 9.6 mg/dL (8.4-10.2); Carbon Dioxide 26 mmol/L (22-30); Chloride 108 mmol/L (98-107); Estimated CRCL calculation 41 ml/min; Estimated Glomerular Filt Rate 53; Glucose 122 mg/dL (65-105); Potassium 4.3 mmol/L (3.4-5.0); Sodium 141 mmol/L (137-145)
[2020-12-27 06:36] LABS: Burr Cells 1+ (NORMAL); Large Platelets Present; Ovalocytes 1+ (NORMAL); Platelet Estimate Adequate (Adequate)
[2020-12-27 06:45] LABS: Troponin I 0.028 ng/mL (0.000-0.034)
[2020-12-27 06:55] LABS: INR 1.1; Partial Thromboplastin Time 25.1 SECONDS (22.3-36.8); Prothrombin Time 14.6 Seconds (11.1-14.7)
--- NOTE | 2020-12-27 07:03 | ED.CHESTPAIN ---
HPI - Chest Pain General Chief Complaint: Chest Pain Stated Complaint: cp since 0100; asa 324/nitro x 1 dose (ems gave) Time Seen by Provider: 12/27/20 07:01 History of Present Illness HPI narrative: Chest pain since 2 AM. left sided. No radiation. Initial dull and mild. Now 8/10 and sharp. Associated with shortness of breath. She reports that it feels like her heart. She has a h/o of ischemic cardiomyopathy. She has had multiple recent medication changes due to intolerance and noncompliance. BP has been significantly elevated. Related Data Home Medications Medication Instructions Recorded Confirmed allopurinol 100 mg tablet 200 mg PO DAILY 07/04/19 12/29/20 celecoxib 200 mg capsule 200 mg PO DAILY 07/04/19 12/29/20 clopidogrel 75 mg tablet 75 mg PO DAILY 07/04/19 12/29/20 cholecalciferol (vitamin D3) 25 mcg PO DAILY 12/15/20 12/29/20 levothyroxine 150 mcg PO DAILY 12/15/20 12/29/20 omeprazole 20 mg PO BID 12/15/20 12/29/20 potassium chloride 20 meq PO TID 12/15/20 12/29/20 Allergies Allergy/AdvReac Type Severity Reaction Status Date / Time erythromycin base Allergy Severe Itching Verified 12/29/20 09:35 ethyl alcohol Allergy Severe Itching Verified 12/29/20 09:35 amoxicillin Allergy Unknown Unknown Verified 12/29/20 09:35 clavulanic acid Allergy Unknown Unknown Verified 12/29/20 09:35 clonidine Allergy Unknown Unknown Verified 12/29/20 09:35 codeine Allergy Unknown Unknown Verified 12/29/20 09:35 metronidazole Allergy Unknown Unknown Verified 12/27/20 05:50 morphine Allergy Unknown Unknown Verified 12/27/20 05:50 Penicillins Allergy Unknown Unknown Verified 12/27/20 05:50 [id number]-[id number]-Iaq Reductase Allergy Unknown Unknown Verified 12/27/20 05:50 Inhibitor adhesive AdvReac Mild Itching Verified 12/27/20 05:50 lisinopril AdvReac Unknown Headache Verified 12/27/20 05:50 and dizziness, no angioedema Review of Systems Review of Systems: All systems reviewed & are unremarkable except as noted in HPI and below Constitutional: Constitutional: Denies fever(s) ENT: Denies sore throat Respiratory: Respiratory: Denies chest congestion Gastrointestinal: Gastrointestinal: Reports nausea Musculoskeletal: Musculoskeletal: Denies back pain Neurologic: Denies confusion [facility] Past Medical History Medical History Combined congestive systolic and diastolic heart failure Echocardiogram on 12/17/2020 showed severe global hypokinesis, grade 2 diastolic dysfunction, with a calculated EF of 25%, and moderate pulmonary hypertension. Coronary artery disease involving [place] heart History of left breast cancer Status post mastectomy and chemoradiation. History of [place] (myocardial infarction) (~2013) Hypertension Hypothyroidism Ischemic cardiomyopathy Status post ICD insertion and subsequent generator explant. Low serum IgG2 subclass level Obstructive sleep apnea On CPAP with nasal pillows. Persistent asthma without complication Pulmonary hypertension Surgical History Surgical History History of bilateral knee arthroplasty History of cataract extraction History of cholecystectomy History of coronary artery bypass graft (2013) History of left mastectomy (2011) History of partial colectomy (2013) History of sinus surgery (2015) History of thyroidectomy Family History Family History Mother Family history of osteoarthritis Father Diabetes mellitus Son Muscular dystrophy Social History Social History Social History: Surrogate decision maker: Ирина Duenas and Adela Nielsen, daughters. Code status: Full code. Smoking packs per day: 0.25 Smoking cigarettes per day: 5.0 Years smoked: 8 Smoking pack-years: 2.00 Smoking status: Never smoker Tobacco type: cigarettes
[2020-12-27] MEDS: NITROGLYCERIN OINTMENT 1 INCH DOSE TRANSDERM (07:30)
[2020-12-27] MEDS: fentaNYL CITRATE INJ (*CRX) 100 MCG/2 ML VIAL 50 MCG IV PUSH ×2 (08:40→11:03)
[2020-12-27] MEDS: LABETALOL HCL INJ 100 MG/20 ML VIAL 20 MG IV PUSH ×2 (08:41→12:26)
[2020-12-27 09:24] LABS: Troponin I 0.031 ng/mL (0.000-0.034)
[2020-12-27] MEDS: hydrALAZINE HCL 20 MG/ML VIAL IV PUSH ×2 (11:03→15:59)
[2020-12-27 12:37] LABS: Troponin I 0.028 ng/mL (0.000-0.034)
--- NOTE | 2020-12-27 13:00 | PM.IMHP ---
H&P: HPI History of Present Illness Date/Time: 12/27/20 13:00 Chief Complaint: Chest pain. Narrative: This is a pleasant 80-year-old female with combined systolic and diastolic congestive heart failure, coronary artery disease with history of STEMI status post CABG, ischemic cardiomyopathy status post ICD insertion and subsequent generator explant, pulmonary hypertension, sleep apnea on CPAP, and hypertension who presented to the emergency department earlier this morning via EMS from home with complaints of shortness of breath. The patient is known to myself and the hospitalist service with a recent admission on 12/15/2020 in which she was treated for acute on chronic systolic and diastolic congestive heart failure exacerbation. Echocardiogram done during that stay showed a decline her left systolic function now with an estimated ejection fraction of 25 to 30% and she was started on Entresto and carvedilol. Unfortunately she states intolerance to both medications as she believes they have caused her to have itchy watery eyes and sinus congestion. In any event overnight she developed left-sided anterior chest discomfort that she describes as aching in nature. It is worse with palpation and movement and perhaps even with deep inspiration and she came into the emergency department this morning as she thought she was having a heart attack. Once again her blood pressure was markedly elevated and she was found to have pulmonary edema on imaging. No acute EKG changes were noted. At the time of my evaluation we had a long discussion regarding medications and her perceived intolerances to many drugs that would be beneficial for her to take for her blood pressure and heart failure. She admits that she gets anxious when taking medications and spends lot of time reading about possible adverse events and side effects and her daughter feels this may be the reason why she does not take them. She is willing to try Entresto again. Currently she is still having an aching discomfort in the left chest; it is noted that she had intense radiation in the same region and has had issues with discomfort there in the past. She denies associated shortness of breath and sweats. She has had some nausea which she attributes to postnasal drip. Review of Systems Review of Systems: Narrative: Twelve systems were reviewed with pertinent positives and negatives as per HPI. No fever, chills, or sweats. No recent cold or flu symptoms. She denies exposure to those positive for COVID-19. No sick contacts. She denies palpitations and racing heart. No orthopnea, PND, or significant lower extremity edema. She has been trying not to salt any of her food but admits that she will eat frozen meals and goes out to dinner without paying much attention to the salt in the foods there. [facility] Past Medical History Medical History (Updated 12/27/20 @ 21:45 by Terra Alonzo PA-C) Combined congestive systolic and diastolic heart failure Echocardiogram on 12/17/2020 showed severe global hypokinesis, grade 2 diastolic dysfunction, with a calculated EF of 25%, and moderate pulmonary hypertension. Coronary artery disease involving [place] heart History of left breast cancer Status post mastectomy and chemoradiation. History of [place] (myocardial infarction) (~2013) Hypertension Hypothyroidism Ischemic cardiomyopathy Status post ICD insertion and subsequent generator explant. Low serum IgG2 subclass level Obstructive sleep apnea On CPAP with nasal pillows. Persistent asthma without complication Pulmonary hypertension Surgical History Surgical History History of bilateral knee arthroplasty History of cataract extraction History of cholecystectomy History of coronary artery bypass graft (2013) History of left mastectomy (2011) History of partial colectomy (2013) History of sinus surgery (2015) History of thyroidectomy Family History [place]
--- NOTE | 2020-12-27 15:24 | PM.CNCAR ---
Assessment and Plan Assessment and plan (1) Chest pain: Code(s): R07.9 - Chest pain, unspecified Status: Acute Assessment and Plan: Chest pain appears to be musculoskeletal. Tylenol PRN (2) Hypertensive urgency: Code(s): I16.0 - Hypertensive urgency Status: Acute Assessment and Plan: Difficult to control, but pt barely on any meds secondary to multiple drug intolerances. Resume carvedilol at a higher dose, 12.5 mg BID, and resume losartan. Home Tuesday or Tuesday? (3) Combined congestive systolic and diastolic heart failure: Code(s): I50.40 - Unspecified combined systolic (congestive) and diastolic (congestive) heart failure Status: Chronic Assessment and Plan: Back in CHF again secondary to HTN and cardiomyopathy. FUrosemide 40 mg IVP qd ON discharge, increase furosemide to 40 mg BID for a week? (4) Cardiomyopathy: Code(s): I42.9 - Cardiomyopathy, unspecified Status: Acute Assessment and Plan: EF has declined to 25-30%. Cont carvedilol, losartan. Intolerant of Entresto. History of Present Illness History of Present Illness Consult date/time: 12/27/20 15:24 Consult reason: chest pain and hypertension Reason For Visit: Chest pain/uncontrolled hypertension/ischemic card Narrative: Jacqueline Anthony is an 80 y.o. female whom we were asked to see at the request of Dr. Mitchell for our advice and opinion regarding her chest pain and uncontrolled hypertension. She normally is seen by Dr. Draper in our office for her history of CAD, CABG, cardiomyopathy and hypertension. Patient was admitted on 12/15/2020 with uncontrolled hypertension and new onset CHF. She had been noncompliant with medications and has a lot of drug intolerances. EF had declined to 25-30%. She was discharged with carvedilol and Entresto but called our office complaining of itching Upper eyes, nose and her chest (no rash)a few days later (had tolerated the carvedilol in the hospital). These 2 medications were stopped and she was seen yesterday, 12/26/2020 in our office saying her breathing was not great but better. Her blood pressure was 140/78 and she agreed to resume the carvedilol at 3.125 mg b.i.d. However overnight she developed some chest discomfort which is described as dull and mild but worsened. she thought she was having a heart attack. It hurt to move, it hurt to breathe, it hurt to lie on her left side.a She came to the emergency room this morning with a blood pressure of 186/108. She has been given IV hydralazine and labetalol with not much improvement, current blood pressure is 192/103 mmHg. For her CP she was given fentanyl, but that gave her a headache and made her feel dizzy. She is on a low-sodium diet and limits her fluid intake at home. She has of lifelong history of hypertension. Infrequent use of nonsteroidals. She states an allergy to clonidine and lisinopril (headache and dizziness, not angioedema), and spironolactone made her feel funny and have a headache. She has been on losartan and carvedilol in the past, she is not sure why she stopped them. Review of doctor Bonny's notes show that she has had multiple minor and nonspecific drug intolerances including to losartan and amlodipine. On her last visit with him on on 11/12/2020 she had stopped her nifedipine, spironolactone and metoprolol. He recommended she resume her spironolactone and metoprolol. She has not had any problems with CHF for a few years. NSTEMI and 4 vessel CABG in November 2013, EF 20-25% at that time. Had a [employer] ICD implanted 05/2014. It was explanted in 2016 as she had improvement of her LV function, EF 53%, no ICD discharges, and it was in the area of intense radiation therapy for her left-sided breast cancer. History of some medication noncompliance. Review of Systems Constitutional: Constitutional: Rep
--- NOTE | 2020-12-27 17:00 | PC.NURSE ---
This patient, Jacqueline Duenas, was admitted to IMU Room 200-01. Patient/family oriented to hospital policies and general routines including ID bracelet, bed and alarms, visiting hours, pain management, procedures, bathroom and other care routines, personal items, smoking policy, room service/diet, and visiting hours. Information on how to activate the Rapid Response Team has been discussed. Patient/Family are encouraged to report perceived risks to care and to ask questions if they do not understand what they are told or what they should do.
[2020-12-27] MEDS: LOSARTAN POTASSIUM 50 MG TABLET PO (18:14)
[2020-12-27] MEDS: carvediloL 12.5 MG TABLET PO (18:14)
[2020-12-27] MEDS: WATER FOR IRRIGATION, STERILE 1,000 ML BOTTLE 1000 ML (22:16)
[2020-12-28] VITALS (15 sets, daily range): BP systolic 113–149; BP diastolic 51–69; PULSE 48–71; RESP 20; TEMP 36.2–36.6; O2SAT 95–100
[2020-12-28 05:58] LABS: Alanine Aminotransferase 27 U/L (4-35); Albumin Level 3.3 g/dL (3.5-5.1); Alkaline Phosphatase 155 U/L (38-126); Anion Gap 5 mmol/L (8-16); Aspartate Amino Transferase 32 U/L (14-36); Bilirubin,Total 2.4 mg/dL (0.2-1.3); Blood Urea Nitrogen 24 mg/dL (7-17); Calcium 9.1 mg/dL (8.4-10.2); Carbon Dioxide 27 mmol/L (22-30); Chloride 106 mmol/L (98-107); Estimated CRCL calculation 32 ml/min; Estimated Glomerular Filt Rate 39; Glucose 98 mg/dL (65-105); Potassium 3.4 mmol/L (3.4-5.0); Sodium 138 mmol/L (137-145)
[2020-12-28] MEDS: FUROSEMIDE INJ 40 MG/4 ML VIAL IV PUSH (08:33)
[2020-12-28] MEDS: ENOXAPARIN 40 MG/0.4 ML SYRINGE SUB-Q (08:34)
[2020-12-28] MEDS: carvediloL 12.5 MG TABLET PO (08:34)
[2020-12-28] MEDS: POTASSIUM CHLORIDE 20 MEQ TABLET 40 MEQ PO (08:34)
[2020-12-28] MEDS: LOSARTAN POTASSIUM 50 MG TABLET PO (08:35)
--- NOTE | 2020-12-28 16:57 | PM.PNCARD ---
Progress Note: A&P Assessment and Plan (1) Chest pain: Code(s): R07.9 - Chest pain, unspecified Status: Acute Assessment and Plan: Chest pain appears to be musculoskeletal and has resolved. (2) Hypertensive urgency: Code(s): I16.0 - Hypertensive urgency Status: Acute Assessment and Plan: Difficult to control, but pt barely on any meds secondary to multiple drug intolerances. Resumed carvedilol at a higher dose, 12.5 mg BID, and resumed losartan 50 mg q.d. Blood pressure much better although the last 1 was 113 systolic perhaps a little bit too much better. Will check another couple blood pressure is but hopefully she can be discharged today; we may need to back off a bit on her medicine (3) Combined congestive systolic and diastolic heart failure: Code(s): I50.40 - Unspecified combined systolic (congestive) and diastolic (congestive) heart failure Status: Chronic Assessment and Plan: Back in CHF again secondary to HTN and cardiomyopathy. FUrosemide 40 mg IVP qd ON discharge, increase furosemide to 40 mg BID for a week? (4) Cardiomyopathy: Code(s): I42.9 - Cardiomyopathy, unspecified Status: Acute Assessment and Plan: EF has declined to 25-30%. Cont carvedilol, losartan. Intolerant of Entresto. Subjective Date/time seen: 12/28/20 16:57 Interval history: Follow-up for uncontrolled blood pressure, chest pain, CHF. History of CAD. Date of service 12/27/2020: The chest pain appear to be musculoskeletal. Increase carvedilol to: 12.5 mg b.i.d.. Entresto had been discontinued as an outpatient because of itching so I resumed losartan 50 mg daily. Ordered furosemide 40 mg IV push for 12/28/2020. Date of service 12/28/2020: Patient feels better, chest discomfort is gone, no shortness of breath or swelling. Blood pressure is better, 115 -150 over 50s to 60s. Review of Systems Constitutional: Constitutional: Denies weakness ENT: Reports nasal congestion Cardiovascular: Cardiovascular: Denies chest pain, Denies diaphoresis, Denies pedal edema, Denies lightheadedness and Denies palpitations Respiratory: Respiratory: Denies cough and Denies dyspnea Gastrointestinal: Gastrointestinal: Denies abdominal pain Genitourinary: Genitourinary: Denies hematuria Musculoskeletal: Musculoskeletal: Reports back pain Integumentary/Breasts: Skin/Breast: Denies rash Neurologic: Reports system reviewed and no additional complaints, except as documented Exam Const: General: comfortable and no acute distress HENMT: General nose exam: no epistaxis Eyes: EOM: EOMs intact bilaterally Neck: Neck: supple Resp: Auscultation: rales (rales RLL) Cardio: Rate: regular rate Rhythm: regular rhythm GI: Inspection: non-distended GI Palp: Yes Soft to palpation and No Tenderness to palpation present (GI) Skin: General skin exam: normal color and no rashes or lesions noted Neuro: Cognition (Neuro): normal cognition Speech: normal speech Extrem: General: no edema and no pedal edema Psych: Mental Status: mental status grossly normal Objective Data Vital Signs Vital Signs: Vital Signs - 24 hr 12/27/20 18:00 12/27/20 18:14 12/27/20 18:41 Temperature Pulse Rate 79 79 Respiratory Rate Blood Pressure 159/75 H Pulse Oximetry 12/27/20 20:00 12/27/20 22:00 12/27/20 23:06 Temperature 97.2 F L 97 F L Pulse Rate 63 59 L 62 Respiratory Rate 20 20 Blood Pressure 133/53 L 146/75 H Pulse Oximetry 96 97 12/28/20 00:00 12/28/20 02:00 12/28/20 03:51 Temperature 97.2 F L Pulse Rate 59 L 54 L 59 L Respiratory Rate 20 Blood Pressure 149/67 H Pulse Oximetry 95 12/28/20 04:00 12/28/20 06:00 12/28/20 07:44 Temperature 97.6 F Pulse Rate 57 L 64 64 Respiratory Rate 20 Blood Pressure 129/57 L Pulse Oximetry 100 12/28/20 08
--- NOTE | 2020-12-28 17:40 | PM.DS ---
DS: Admitting Diagnosis Admitting Diagnosis Admitting Diagnosis: Chest pain DS: Discharge Diagnosis Discharge Diagnosis (1) Chest pain: Code(s): R07.9 - Chest pain, unspecified Status: Acute Assessment and Plan: Chest pain felt to be musculoskeletal in etiology as it is reproducible. She has ruled out for acute coronary syndrome by serial troponins. (2) Combined congestive systolic and diastolic heart failure: Code(s): I50.40 - Unspecified combined systolic (congestive) and diastolic (congestive) heart failure Status: Chronic Assessment and Plan: Back in CHF due to uncontrolled hypertension. She has difficulty toelrating the Entresto. CXR showing cardiomegaly and pulmonary vascular congestion. She was treated with NTP and Lasix IV. She also received treatment for her HTN. She did require !L O2 at times but able to be weaned to room air. Discussed with Cardiology. Will have pateit increase lasix for a few days then back to normal dose. (3) Hypertensive urgency: Code(s): I16.0 - Hypertensive urgency Status: Acute Assessment and Plan: Blood pressures were markedly elevated on admission. She is not always compliant with her medications and is intolerant to multiple medications. She ws resumed back on Coreg and dose was advanced. She was also started on losartan as well. BP improved. Cr was 1.0 on admission and climbed to 1.3 on repeat. Could be related to the Lasix and/or elevated HTN and/or drop in the BP. This will need to monitor closely in the outpatient setting. (4) Obstructive sleep apnea: Code(s): G47.33 - Obstructive sleep apnea (adult) (pediatric) Status: Acute Assessment and Plan: Patient used her nasal pillows brought in from home. DS: Summary Hospital Course Reason for hospitalization: 80yo female with CAD, CMP and HTN here for chest pain. Please see H&P for details. Hospital Course: Please see above for details of hospital course. Status at Discharge Cognitive/behavioral status at discharge: Stable Time Spent with Patient Time attestation: Total time spent providing and/or coordinating discharge services: 38 minutes Time spent: Greater than 30 minutes Exam Narrative: Exam Narrative: AF 97.8 143/65 55 20 98% ra Gen - NARD Chest - R>L bibasialr inspiratory crackles, nml RR CV - RRR S1/S2. Tele showing PVCs and sinus arrhythmia Abd - Soft, NT/ND, Positive BS Ext - No pedal edema. 2+ DP pulses bilaterally Psych - Nml mood and affect Skin - Warm and dry DS: Data Data Completed and Pending Labs on day of discharge: Labs from last 24 hours 12/28/20 12/28/20 04:40 04:40 Sodium 138 Potassium 3.4 Chloride 106 Carbon Dioxide 27 Anion Gap 5 L BUN 24 H Creatinine 1.30 H Estim Creat Clear Calc 32 Estimated GFR 39 L Glucose 98 Calcium 9.1 Magnesium 2.0 Total Bilirubin 2.4 H AST 32 ALT 27 Alkaline Phosphatase 155 H Total Protein 6.0 L Albumin 3.3 L TSH (Reflex) 1.740 Discharge Plan Discharge Attending physician on discharge: Domingo Junior Consulting providers: Ashley Barfield Discharging Clinician: Domingo Junior Anticipated Discharge Date/Time: 12/28/20 18:01 Patient Disposition: Home, Self-Care Activity: as tolerated Diet: heart healthy Discharge Instructions: You should be getting a call from [facility] to schedule an appointment but if you do not please call us at: [phone] Please avoid large gathering, wear face coverings in public and practice social distance. Check blood pressure 1 to 2 times a day. Record and bring into your doctor for review. Call your doctor if your blood pressure is greater than 180/110. Take precautions to avoid falls. Rise slowly from a lying or sitting position. Pause before standing or walking. Check daily morning weights after voiding. Call
== END 2020-12-28 19:54 | disposition home or self-care (01) ==
LOC: ANHED 09:38 → ANHIMU 14:44
PROVIDERS: Emergency Medicine; Physician Assistant; Admitting Provider Family Medicine; Emergency Provider Emergency Medicine; PCP Family Medicine Adolescent Medicine; Visit Provider Internal Medicine
DX: R07.89 Other chest pain (principal); R06.02 Shortness of breath; I11.0 Hypertensive heart disease with heart failure; I16.0 Hypertensive urgency; I50.40 Unspecified combined systolic (congestive) and diastolic (congestive) heart failure; I25.10 Atherosclerotic heart disease of native coronary artery without angina pectoris; I25.2 Old myocardial infarction; G47.33 Obstructive sleep apnea (adult) (pediatric); Z95.1 Presence of aortocoronary bypass graft; Z96.653 Presence of artificial knee joint, bilateral
CPT/HCPCS: 36415; 71045; 80048; 80053; 83735; 84443; 84484; 85025; 85610; 85730; 93005; 96372; 96374; 96375; 96376; 99285; A9270; G0378; J0360; J1650; J1940; J3010

== ENCOUNTER 2021-01-20 06:59 | Outpatient (CLI) | payer OTHER, SELFPAY ==
--- NOTE | ~2021-01-20 | CT_ITS ---
EXAMINATION: CT sinus wo con DATE: 01/20/2021 07:23 INDICATION: Chronic sinusitis TECHNIQUE: Computed tomography (CT) of the paranasal sinuses was performed without intravenous contra st. The dose-length product was 267.28 mGy-cm. Automated exposure control and iterative reconstructio n technique were employed. COMPARISON: CT dated 12/15/2020 FINDINGS: There is mucosal thickening of the right maxillary sinus and anterior ethmoid air cells. Th ere is mucoperiosteal reaction of the right maxillary sinus. There are bilateral sandeep bullosa. Ther e are surgical changes of resection of the ostiomeatal units. No significant nasal septal deviation. Mastoids are pneumatized. IMPRESSION: 1. Moderate chronic sinus disease primarily affecting the right maxillary sinus. Reviewed, dictated and finalized at location D. IMPRESSION: 1. Moderate chronic sinus disease primarily affecting the right maxillary sinus .
== END 2021-01-20 07:00 | disposition home or self-care (01) ==
PROVIDERS: PCP Family Medicine Adolescent Medicine; Visit Provider Otolaryngology
DX: R09.82 Postnasal drip (principal); R09.81 Nasal congestion; R51.9 Headache, unspecified; R44.8 Other symptoms and signs involving general sensations and perceptions; J32.0 Chronic maxillary sinusitis
CPT/HCPCS: 70486

== ENCOUNTER 2021-02-04 09:14 | Outpatient (CLI) | payer OTHER, SELFPAY | END 2021-02-04 09:15 | disposition home or self-care (01) | LOC: ANHAUDASC 09:16 | PROVIDERS: PCP Family Medicine Adolescent Medicine; Visit Provider Otolaryngology | DX: H90.3 Sensorineural hearing loss, bilateral (principal) | CPT/HCPCS: 92557; 92567 ==

== ENCOUNTER 2021-02-13 00:15 | Day surgery (SDC) | payer OTHER, SELFPAY ==
[2021-02-03 08:51] VITALS: BMI 33.9
--- NOTE | 2021-02-12 08:27 | PM.IMHP ---
H&P: HPI History of Present Illness Date/Time: 02/12/21 08:28 Presents for planned surgical procedure no changes in history or symptoms. Chief Complaint: Nasal obstruction nasal congestion inferior turbinate hypertrophy bilateral sandeep bullosa right-sided acute and chronic maxillary sinusitis anterior ethmoidal sinusitis as well Review of Systems Constitutional: Constitutional: Denies fatigue, Denies fever(s) and Denies lethargy Eyes: Eyes: Denies blurry vision and Denies change in vision ENT: Reports as per HPI Cardiovascular: Cardiovascular: Denies chest pain Respiratory: Respiratory: Denies cough Endocrine: Endocrine: Denies fatigue Hematologic/Lymphatic: Hematologic/Lymphatic: Denies easy bleeding, Denies easy bruising and Denies lymphadenopathy Allergic/Immunologic: Allergic/Immunologic: Denies seasonal rhinorrhea [facility] Past Medical History Medical History Combined congestive systolic and diastolic heart failure Echocardiogram on 12/17/2020 showed severe global hypokinesis, grade 2 diastolic dysfunction, with a calculated EF of 25%, and moderate pulmonary hypertension. Coronary artery disease involving [place] heart History of left breast cancer Status post mastectomy and chemoradiation. History of [place] (myocardial infarction) (~2013) Hypertension Hypothyroidism Ischemic cardiomyopathy Status post ICD insertion and subsequent generator explant. Low serum IgG2 subclass level Obstructive sleep apnea On CPAP with nasal pillows. Persistent asthma without complication Pulmonary hypertension Surgical History Surgical History History of bilateral knee arthroplasty History of cataract extraction History of cholecystectomy History of coronary artery bypass graft (2013) History of left mastectomy (2011) History of partial colectomy (2013) History of sinus surgery (2015) History of thyroidectomy Family History Family History Mother Family history of osteoarthritis Father Diabetes mellitus Son Muscular dystrophy Social History Social History Social History: Surrogate decision maker: Ирина Duenas and Adela Nielsen, daughters. Code status: Full code. Smoking packs per day: 0.5 Smoking cigarettes per day: 10.0 Years smoked: 10 Smoking pack-years: 5.00 Smoking status: Former smoker Tobacco type: cigarettes Additional smoking assessment comments: PT STATES QUIT SMOKING 1976 Alcohol intake: never Substance use: never Substance use type: does not use Additional living arrangements comments: The patient lives in [place] with her disabled son and her daughter. Gender identity (if verbalized by the patient): Female Spiritual care concerns: No Meds Home Medications and Allergies Home Medications Medication Instructions Recorded Confirmed Type allopurinol 100 mg tablet 200 mg PO QAM 07/04/19 02/06/21 History celecoxib 200 mg capsule 200 mg PO QAM 07/04/19 02/06/21 History clopidogrel 75 mg tablet 75 mg PO QAM 07/04/19 02/06/21 History cholecalciferol (vitamin D3) 25 mcg PO QAM 12/15/20 02/06/21 History levothyroxine 150 mcg PO QAM 12/15/20 02/06/21 History omeprazole 20 mg PO BID PRN 12/15/20 02/06/21 History potassium chloride 20 meq PO TID 12/15/20 02/06/21 History furosemide 40 mg PO QAM #20 tablet 12/28/20 02/06/21 Rx fluticasone propionate 50 2 spray INTRANASAL BID #16 g 12/29/20 02/06/21 Rx mcg/actuation nasal spray,suspension alirocumab [Praluent Pen] See Rx Instructions .ROUTE .COMPLEX 02/03/21 02/06/21 History carvedilol [Coreg] 12.5 mg PO QAM 02/03/21 02/06/21 History montelukast 10 mg PO QAM 02/03/21 02/06/21 History Allergies Allergy/AdvReac Type Severity Reaction Status Date / Time erythromycin base Allergy Severe Itching Verified
[2021-02-13] VITALS (8 sets, daily range): BP systolic 128–179; BP diastolic 56–94; PULSE 52–72; RESP 16–22; TEMP 36.3–36.5; O2SAT 96–100
[2021-02-13] MEDS: ACETAMINOPHEN 500 MG TABLET 1000 MG PO (06:57)
--- NOTE | 2021-02-13 07:03 | WPDHPUPDATE1 ---
History and Physical Update Update Date/Time: 02/13/21 07:03 History and Physical has been reviewed, including an updated exam of the patient. There are NO changes in the patient's condition. Risks, benefits, and alternatives have been discussed and questions answered. Patient agrees to proceed with procedure.
[2021-02-13] MEDS: LACTATED RINGERS 1,000 ML 30 ML IV CONT (07:07)
--- NOTE | 2021-02-13 07:18 | WPDANESEPPF ---
Anes - Initial Pre Proc Eval Procedure: Operation Date: 02/13/21 07:30 Proposed Procedures p Image Guided Right Maxillary Antrostomy, Anterior Ethmoidectomy, Bilateral Resection Christy Bullosa, Bilateral Inferior Turbinectomy - Sourav Lee MD Date/Time: 02/13/21 07:18 Surgeon: Sourav Lee MD Pre Op Diagnosis: chronic sinusitis Patient Data Age: 80 Gender: F Height: 1.57 m Weight: 85.5 kg Last Vital Signs Temp 36.5 C 02/13/21 07:08 Pulse 53 L 02/13/21 07:08 BP 148/56 H 02/13/21 07:08 Pulse Ox 99 02/13/21 07:08 Allergies Allergy/AdvReac Type Severity Reaction Status Date / Time erythromycin base Allergy Severe Itching Verified 02/13/21 06:41 ethyl alcohol Allergy Severe Itching Verified 02/13/21 06:41 amoxicillin Allergy Unknown Itching Verified 02/13/21 06:41 clavulanic acid Allergy Unknown Itching Verified 02/13/21 06:41 clonidine Allergy Unknown Drowsy Verified 02/13/21 06:41 codeine Allergy Unknown Nausea and Verified 02/13/21 06:41 Vomiting metronidazole Allergy Unknown Nausea and Verified 02/13/21 06:41 Vomiting, ITCHING morphine Allergy Unknown Nausea and Verified 02/13/21 06:41 Vomiting Penicillins Allergy Unknown Itching Verified 02/13/21 06:41 [id number] Reductase Allergy Unknown Joint Pain Verified 02/13/21 06:41 Inhibitor adhesive AdvReac Mild Itching Verified 02/06/21 08:37 lisinopril AdvReac Unknown Headache Verified 02/06/21 08:37 and dizziness, no angioedema Home Medications Medication Instructions Recorded Confirmed Type allopurinol 100 mg tablet 200 mg PO QAM 07/04/19 02/13/21 History celecoxib 200 mg capsule 200 mg PO QAM 07/04/19 02/13/21 History clopidogrel 75 mg tablet 75 mg PO QAM 07/04/19 02/13/21 History cholecalciferol (vitamin D3) 25 mcg PO QAM 12/15/20 02/13/21 History levothyroxine 150 mcg PO QAM 12/15/20 02/13/21 History omeprazole 20 mg PO BID PRN 12/15/20 02/13/21 History potassium chloride 20 meq PO TID 12/15/20 02/13/21 History furosemide 40 mg PO QAM #20 tablet 12/28/20 02/13/21 Rx fluticasone propionate 50 2 spray INTRANASAL BID #16 g 12/29/20 02/13/21 Rx mcg/actuation nasal spray,suspension alirocumab [Praluent Pen] See Rx Instructions .ROUTE .COMPLEX 02/03/21 02/13/21 History carvedilol [Coreg] 12.5 mg PO QAM 02/03/21 02/13/21 History montelukast 10 mg PO QAM 02/03/21 02/13/21 History Patient hx anesthesia problems: none Family hx anesthesia problems: none PMFSH Past Medical History Medical History Combined congestive systolic and diastolic heart failure Echocardiogram on 12/17/2020 showed severe global hypokinesis, grade 2 diastolic dysfunction, with a calculated EF of 25%, and moderate pulmonary hypertension. Coronary artery disease involving [place] heart History of left breast cancer Status post mastectomy and chemoradiation. History of [place] (myocardial infarction) (~2013) Hypertension Hypothyroidism Ischemic cardiomyopathy Status post ICD insertion and subsequent generator explant. Low serum IgG2 subclass level Obstructive sleep apnea On CPAP with nasal pillows. Persistent asthma without complication Pulmonary hypertension Surgical History Surgical History History of bilateral knee arthroplasty History of cataract extraction History of cholecystectomy History of coronary artery bypass graft (2013) History of left mastectomy (2011) History of partial colectomy (2013) History of sinus surgery (2015) History of thyroidectomy Family History Family History Mother Family history of osteoarthritis Father Diabetes mellitus Son Muscular dystrophy Social History Social History Social History: Surrogate decision maker: Ирина Duenas and Adela Nielsen, daughters. Code statu
[2021-02-13] MEDS: ceFAZolin 2 GM/D5W 50 ML 2 GM/50 ML BAG IVPB (07:29)
[2021-02-13] MEDS: OXYMETAZOLINE HCL 0.05% NAS 15 ML BTL (*BKC) 1 SPRAY NASAL (07:46)
[2021-02-13] MEDS: LIDO 1%/EPINEPHRINE 1:100,000 20 ML VIAL 50 ML INFILTRATE (07:47)
--- NOTE | 2021-02-13 08:19 | P.OP_ITS ---
Procedure Note - Detailed Date of Procedure 02/13/21 Pre-op Diagnosis chronic sinusitis, sandeep bullosa, nasal obstruction, inferior turbinate hypertrophy Post-op Diagnosis same Procedure Performed 1. endoscopic Right-sided maxillary antrostomy 2. Bilateral endoscopic resection of middle turbinate sandeep bullosa 3. Bilateral inferior turbinate outfracture Surgeon Sourav Lee MD Anesthesia general Indications chronic sinusitis, sandeep bullosa, nasal obstruction, inferior turbinate hypertrop Findings sandeep bullosa purulence in the right maxillary sinus inferior turbinate hypertrophy Description of Procedure the patient was correctly identified and consent was verified in the preoperative holding area. The patient was then brought to the operating room and a time-out performed. General anesthesia was induced and endotracheal tube was secured the patient's airway and taped to the left lower lip. Afrin-soaked pledgets were then placed bilaterally and allowed to sit for 5 minutes before being removed. The patient was then prepped and draped for the aforementioned procedure. Under endoscopic guidance the right middle turbinate was medialized and purulence was noted with edema surrounding the right middle meatus double ball tip probe was utilized to access the right maxillary sinus and a backbiter straight through cut and microdebrider were utilized to create a wide maxillary antrostomy insuring that connected with the natural os. The purulence was removed And the sinus was copiously irrigated clean. 1 cc of 1% lidocaine with 1 100,000 parts epinephrine was injected into the bilateral anterior middle turbinates. The bilateral inferior turbinates were then outfractured using a [place] elevator much improving the nasal airway. A sickle blade was utilized to incise the anterior portion of the left middle turbinate exposing the sandeep. The lateral portion was resected using a combination of straight through cut micro debrider. Hemostasis was achieved using intermittent application of Afrin. The same procedures performed on the right middle turbinate sandeep bullosa. Did the procedure hemostasis was excellent. I performed all dictated portions of the procedure. Blood loss 10 cc. There were no complications. Care the patient was turned over to Anesthesiology. Estimated Blood Loss 10 Drains No Packing No Pathology none sent Complications No immediate complications Condition stable Disposition PACU
== END 2021-02-13 09:37 | disposition home or self-care (01) ==
PROVIDERS: PCP Family Medicine Adolescent Medicine; Visit Provider Otolaryngology
PROC: (CPT 31256; principal; 2021-02-13 07:30)
DX: J32.9 Chronic sinusitis, unspecified (principal); R09.82 Postnasal drip; R09.81 Nasal congestion; R51.9 Headache, unspecified; R44.8 Other symptoms and signs involving general sensations and perceptions; J34.89 Other specified disorders of nose and nasal sinuses; J34.3 Hypertrophy of nasal turbinates; Z79.82 Long term (current) use of aspirin; E03.9 Hypothyroidism, unspecified; Z87.891 Personal history of nicotine dependence; I11.0 Hypertensive heart disease with heart failure; I50.40 Unspecified combined systolic (congestive) and diastolic (congestive) heart failure; I25.2 Old myocardial infarction; I25.5 Ischemic cardiomyopathy; G47.33 Obstructive sleep apnea (adult) (pediatric); J45.909 Unspecified asthma, uncomplicated; I27.20 Pulmonary hypertension, unspecified; E66.9 Obesity, unspecified; Z68.34 Body mass index [BMI] 34.0-34.9, adult
CPT/HCPCS: 31256; 31240; 61782; 30930; A9270; J0330; J0690; J1100; J2405; J2704; J3010; J7120

== ENCOUNTER 2021-03-07 16:18 | Emergency (ER) | payer OTHER, SELFPAY ==
--- NOTE | ~2021-03-07 | XR_ITS ---
EXAMINATION: XR chest 2V EXAM DATE: 03/07/2021 19:27 INDICATION: Weakness, dizziness started last night. TECHNIQUE: Frontal and lateral projections of the chest obtained and reviewed. Comparison is made to prior examination from 12/27/2020. FINDINGS: Sternotomy wires are present without findings to suggest sternal dehiscence. The cardiac si lhouette is enlarged. There is pulmonary vascular congestion. Pacemaker/AICD lead without pack. Right basilar granuloma. There is no pneumothorax suspected. There are no pleural effusions. IVC filter. C holecystectomy clips. IMPRESSION: Cardiomegaly, pulmonary vascular congestion. Reviewed, dictated and finalized at location A.
[2021-03-07 16:17] VITALS: BP 130/50; PULSE 55; RESP 34; TEMP 36.6; O2SAT 95
--- NOTE | 2021-03-07 16:21 | ECG_ITS ---
Measurements Intervals [place] Rate: 53 P: 47 DE: 256 QRS: -7 QRSD: 106 T: 126 QT: 450 QTc: 423 Interpretive Statements SINUS BRADYCARDIA WITH FIRST DEGREE AV BLOCK DELAYED PRECORDIAL R/S TRANSITION LEFT VENTRICULAR HYPERTROPHY AND ST-T CHANGE INFERIOR INFARCT, AGE INDETERMINATE BORDERLINE T WAVE ABNORMALITY- ANTEROLATERAL LEADS BASELINE ARTIFACT- II, AVR, AVF, V1, V3-V6 ABNORMAL ECG Electronically Signed On 03-07-2021 17:08:50 CDT by Jc Barbosa D.O.
[2021-03-07 16:27] VITALS: PULSE 44
--- NOTE | 2021-03-07 16:34 | PC.NURSE ---
Patient is a Left arm Limb alert. No sticks or BP in the left arm.
--- NOTE | 2021-03-07 16:40 | PC.NURSE ---
Patient is noted to have some minor slurring of speech noted. She does tell me that she has had this before. Neuro exam does not reveal any unilateral weakness or loss of CMS function. She has strong grasps and strong push with both feet and hands. There is no leg or arm sway noted with assessment. There is no facial droop noted. She is alert and oriented x 4.
--- NOTE | 2021-03-07 16:45 | PC.NURSE ---
Patient is noted to be bradycardic. When asked if she has had a slow heart rate she states: ever since my heart attack. She also tells me that she did have a defibrillator in place but that it was removed when cancer was noted to the area.
[2021-03-07 16:54] LABS: Basophils Percent Auto 0.4 % (0.2-1.2); Eosinophils Absolute Auto 0.3 K/mm3 (0-0.3); Eosinophils Percent Auto 4.9 % (0-4.4); Hematocrit 35.8 % (37.0-47.0); Hemoglobin 11.4 g/dL (12.0-15.0); Immature Granulocyte Absolute 0.02 K/mm3 (0.00-0.031); Immature Granulocyte Percent A 0.3 % (0-0.5); Lymphocytes Absolute Auto 1.51 K/mm3 (0.9-3.2); Lymphocytes Percent Auto 22.5 % (18.3-44.2); Mean Corpuscular HGB Conc 31.8 g/dl (32-36); Mean Corpuscular Hemoglobin 26.8 pg (26-34); Mean Corpuscular Volume 84.2 fl (80-100); Mean Platelet Volume 10.1 fl (7.4-10.4); Monocytes Percent Auto 15.2 % (2.6-8.5); Neutrophils Absolute Auto 3.8 K/mm3 (1.3-6.7); Neutrophils Percent Auto 56.7 % (45.5-73.1); Platelet Count Result 167 k/mm3 (150-375); Red Blood Count 4.25 M/mm3 (4.2-5.4); Red Cell Distribution Width 17.9 % (11.5-14.5); White Blood Count 6.7 K/mm3 (4.5-10.0)
[2021-03-07 17:04] LABS: Alanine Aminotransferase 25 U/L (4-35); Albumin Level 3.8 g/dL (3.5-5.1); Alkaline Phosphatase 152 U/L (38-126); Anion Gap 9 mmol/L (8-16); Aspartate Amino Transferase 31 U/L (14-36); Blood Urea Nitrogen 26 mg/dL (7-17); Calcium 9.5 mg/dL (8.4-10.2); Carbon Dioxide 23 mmol/L (22-30); Chloride 106 mmol/L (98-107); Estimated CRCL calculation 30 ml/min; Estimated Glomerular Filt Rate 36; Glucose 121 mg/dL (65-110); Sodium 138 mmol/L (137-145)
[2021-03-07 17:05] LABS: Prothrombin Time 13.4 Seconds (11.1-14.7)
[2021-03-07 17:06] VITALS: BP 121/63; PULSE 58; RESP 15; TEMP 36.7; O2SAT 97
[2021-03-07 17:06] LABS: Partial Thromboplastin Time 27.6 SECONDS (22.3-36.8)
[2021-03-07 17:07] LABS: Glucose Point of Care 97 mg/dl (65-105)
[2021-03-07 17:12] LABS: Add Urine Microscopic? YES; Appearance Urine Cloudy (Clear); Bacteria Urine Trace /hpf; Bilirubin Urine Negative (Negative); Blood Urine Negative (Negative); Color Urine Yellow (Yellow); Glucose Urine UA Negative (Negative); Ketones Urine Negative (Negative); Leukocyte Esterase Ur Trace LEU/UL (Negative); Mucus Urine Rare /lpf; Nitrate Urine Negative (Negative); Protein Urine 1+ mg/dL (Negative); RBC Urine 0-2 /hpf (0-2); Specific Grav Ur 1.019 (1.001-1.035); Squamous Epithelial Cell Urine Few /hpf (Few); WBC Urine 0-3 /hpf
[2021-03-07 18:16] VITALS: BP 162/91; PULSE 60; RESP 25; TEMP 36.6; O2SAT 96
[2021-03-07 19:31] VITALS: BP 141/79; PULSE 63; RESP 20; TEMP 37.2; O2SAT 95
--- NOTE | 2021-03-07 19:52 | ED.WEAKNESS ---
HPI - Weakness General Chief complaint: Weakness Stated complaint: disoriented Time Seen by Provider: 03/07/21 19:01 Source: patient and RN notes reviewed Mode of arrival: EMS Limitations: no limitations History of Present Illness HPI Narrative: This is an 80 year old female with history of hypertension, hypothyroid, and CHF who presents for evaluation weakness. Patient reports she had a cardiac catheterization performed yesterday by Dr. Draper at [facility]. She reports she had mild nausea last night but it resolved. She reports she was feeling fine when she woke up this morning. She developed nausea and weakness after eating breakfast. She states she felt unwell. She was talking to her granddaughter on the phone and she called 911. Patient was found to have BS 78 and given oral glucose. Patient states she feels fine now and she wants to go home. She denies having chest pain, shortness of breath, abdominal pain, diarrhea, melena. Related Data Home Medications Medication Instructions Recorded Confirmed allopurinol 100 mg tablet 200 mg PO QAM 07/04/19 02/19/21 celecoxib 200 mg capsule 200 mg PO QAM 07/04/19 02/19/21 clopidogrel 75 mg tablet 75 mg PO QAM 07/04/19 02/19/21 cholecalciferol (vitamin D3) 25 mcg PO QAM 12/15/20 02/19/21 levothyroxine 150 mcg PO QAM 12/15/20 02/19/21 omeprazole 20 mg PO BID PRN 12/15/20 02/19/21 Praluent Pen See Rx Instructions .ROUTE .COMPLEX 02/03/21 02/19/21 carvedilol [Coreg] 12.5 mg PO QAM 02/03/21 02/19/21 montelukast 10 mg PO QAM 02/03/21 02/19/21 losartan 03/07/21 03/07/21 Allergies Allergy/AdvReac Type Severity Reaction Status Date / Time erythromycin base Allergy Severe Itching Verified 03/07/21 19:53 ethyl alcohol Allergy Severe Itching Verified 03/07/21 19:53 amoxicillin Allergy Unknown Itching Verified 03/07/21 19:53 clavulanic acid Allergy Unknown Itching Verified 03/07/21 19:53 clonidine Allergy Unknown Drowsy Verified 03/07/21 19:53 codeine Allergy Unknown Nausea and Verified 03/07/21 19:53 Vomiting metronidazole Allergy Unknown Nausea and Verified 03/07/21 19:53 Vomiting, ITCHING morphine Allergy Unknown Nausea and Verified 03/07/21 19:53 Vomiting Penicillins Allergy Unknown Itching Verified 03/07/21 19:53 Wqyfxaq-Vpe-Icr Reductase Allergy Unknown Joint Pain Verified 03/07/21 19:53 Inhibitor adhesive AdvReac Mild Itching Verified 03/07/21 19:53 lisinopril AdvReac Unknown Headache Verified 03/07/21 19:53 and dizziness, no angioedema Review of Systems Review of Systems: All systems reviewed & are unremarkable except as noted in HPI and below PMFSH Past Medical History Medical History Combined congestive systolic and diastolic heart failure Echocardiogram on 12/17/2020 showed severe global hypokinesis, grade 2 diastolic dysfunction, with a calculated EF of 25%, and moderate pulmonary hypertension. Coronary artery disease involving kashia heart History of left breast cancer Status post mastectomy and chemoradiation. History of MN (myocardial infarction) (~2013) Hypertension Hypothyroidism Ischemic cardiomyopathy Status post ICD insertion and subsequent generator explant. Low serum IgG2 subclass level Obstructive sleep apnea On CPAP with nasal pillows. Persistent asthma without complication Pulmonary hypertension Surgical History Surgical History History of bilateral knee arthroplasty History of cataract extraction History of cholecystectomy History of coronary artery bypass graft (2013) History of left mastectomy (2011) History of partial colectomy (2013) History of sinus surgery (2015) History of thyroidectomy Family History Family History Mother Family history of osteoarthritis Father Diabetes mellitus Son Muscular dystrophy Social
[2021-03-07 21:18] VITALS: BP 134/49; PULSE 60; RESP 16; O2SAT 95
== END 2021-03-07 21:28 | disposition home or self-care (01) ==
PROVIDERS: Emergency Medicine; Emergency Provider General Practice; PCP Family Medicine Adolescent Medicine
DX: R53.1 Weakness (principal); R11.0 Nausea; I50.9 Heart failure, unspecified; I50.40 Unspecified combined systolic (congestive) and diastolic (congestive) heart failure; I25.10 Atherosclerotic heart disease of native coronary artery without angina pectoris; I25.2 Old myocardial infarction; I11.0 Hypertensive heart disease with heart failure; E03.9 Hypothyroidism, unspecified; Z85.3 Personal history of malignant neoplasm of breast; I25.5 Ischemic cardiomyopathy; G47.33 Obstructive sleep apnea (adult) (pediatric); I27.20 Pulmonary hypertension, unspecified; Z96.653 Presence of artificial knee joint, bilateral; Z98.49 Cataract extraction status, unspecified eye; Z95.1 Presence of aortocoronary bypass graft; Z90.12 Acquired absence of left breast and nipple; Z90.49 Acquired absence of other specified parts of digestive tract; Z87.891 Personal history of nicotine dependence; I51.7 Cardiomegaly; R00.1 Bradycardia, unspecified; I44.0 Atrioventricular block, first degree; R94.31 Abnormal electrocardiogram [ECG] [EKG]
CPT/HCPCS: 36415; 71046; 80053; 81001; 82948; 85025; 85610; 85730; 93005; 99283

== ENCOUNTER → 2021-05-19 03:00 | Outpatient (CLI) | payer MEDICARE, SELFPAY ==
[2021-05-19 19:14] LABS: SARS-CoV-2 RNA PCR Positive
== END ==
PROVIDERS: PCP Family Medicine Adolescent Medicine; Visit Provider Family Medicine Adolescent Medicine
DX: U07.1 COVID-19 (principal)
CPT/HCPCS: C9803; U0003; U0005

== ENCOUNTER → 2021-05-28 08:46 | Outpatient (CLI) | payer MEDICARE, SELFPAY ==
[2021-05-28 18:09] LABS: SARS-CoV-2 RNA PCR Positive
== END ==
PROVIDERS: PCP Family Medicine Adolescent Medicine; Visit Provider Physician Assistant
DX: U07.1 COVID-19 (principal)
CPT/HCPCS: C9803; U0003; U0005

== ENCOUNTER 2021-07-06 14:35 | Outpatient (CLI) | payer MEDICARE, SELFPAY ==
--- NOTE | ~2021-07-06 | CT_ITS ---
EXAMINATION: CT lumbar spine wo con DATE: 07/06/2021 15:06 INDICATION: Chronic low back pain radiating down both legs. Chronic bilateral sciatica. TECHNIQUE: Computed tomography (CT) of the lumbar spine was performed without intravenous contrast. A utomated exposure control and iterative reconstruction technique were employed. The dose-length produ ct was 872.15 mGy-cm. COMPARISON: None FINDINGS: There is a small sliding hiatal hernia. There are changes of cholecystectomy. There is a fi lter in the inferior vena cava. There is 4 degrees dextrocurvature of thoracolumbar spine. There is 3 mm retrolisthesis of L2 on L3 and L3 on L4 and 3 mm anterolisthesis of L4 on L5. Vertebral body heig hts are normal. There is moderately decreased disc height at L2-L3 and mildly decreased disc height a t L3-L4 and L4-L5. The following disc levels are specifically discussed: L1-L2: The disc does not extend beyond the endplate margin. There is mild right and severe left facet joint osteoarthritis. There is no neural foraminal stenosis. There is no central canal stenosis. L2-L3: The disc is bulging. There is mild bilateral facet joint osteoarthritis. There is mild bilater al neural foraminal stenosis. There is mild central canal stenosis. L3-L4: The disc is bulging. There is mild bilateral facet joint osteoarthritis. There is mild bilater al neural foraminal stenosis. There is mild central canal stenosis. L4-L5: The disc is bulging. There is severe bilateral facet joint osteoarthritis. There is mild bilat eral neural foraminal stenosis. There is moderate central canal stenosis. L5-S1: The disc is bulging. There is severe bilateral facet joint osteoarthritis. There is mild bilat eral neural foraminal stenosis. There is mild central canal stenosis. IMPRESSION: 1. Moderate lumbar spondylosis. Reviewed, dictated and finalized at location B. O ASSISTANT
== END 2021-07-06 14:36 ==
LOC: MICIMG 14:37
PROVIDERS: Visit Provider Family Medicine Adolescent Medicine
DX: M54.32 Sciatica, left side (principal); M54.31 Sciatica, right side; M47.816 Spondylosis without myelopathy or radiculopathy, lumbar region
CPT/HCPCS: 72131

== ENCOUNTER → 2021-07-06 14:37 | Outpatient (CLI) | payer MEDICARE, SELFPAY ==
--- NOTE | ~2021-07-06 | MM_ITS ---
EXAMINATION: MM screening aundrea RT w ivelisse HISTORY: Screening right mammogram, history of left mastectomy TECHNIQUE: Craniocaudal and mediolateral oblique 3-D tomosynthesis images were obtained and synthetic 2-D images were generated. CAD analysis was submitted and interpreted. COMPARISON: 06/30/2020, 06/18/2019, 06/05/2019, 06/02/2018 BREAST PARENCHYMAL COMPOSITION: The breast is heterogeneously dense, which may obscure small masses. FINDINGS: There is possible architectural distortion in the anterior third of the inner breast. IMPRESSION: 1. Possible right breast architectural distortion. 2. Additional mammographic views and possible breast ultrasound are recommended. BI-RADS Category 0: Incomplete: Needs additional imaging evaluation. Reviewed, dictated and finalized at location A. TO PEELING MACHINE OPERATOR IMPRESSION: 1. Possible right breast architectural distortion. 2. Additional mammographic views and possible breast ultrasound are recommended . BI-RADS Category 0: Incomplete: Needs additional imaging evaluation.
== END ==
PROVIDERS: PCP Family Medicine Adolescent Medicine; Visit Provider Internal Medicine Medical Oncology
DX: Z12.31 Encounter for screening mammogram for malignant neoplasm of breast (principal); R92.8 Other abnormal and inconclusive findings on diagnostic imaging of breast
CPT/HCPCS: 77063; 77067

== ENCOUNTER → 2021-07-31 08:12 | Outpatient (CLI) | payer MEDICARE, SELFPAY ==
--- NOTE | ~2021-07-31 | MMUS_ITS ---
EXAMINATION: MM diagnostic aundrea RT w ivelisse, US breast RT limited HISTORY: Follow-up right breast architectural distortion TECHNIQUE: Additional 3-D tomosynthesis images of the right breast were performed and synthetic 2-D i mages were generated. CAD analysis was submitted and interpreted. High resolution Limited right breas t ultrasound was performed. COMPARISON: Comparison to multiple prior studies sequentially, with oldest reviewed study dated 05/15. BREAST PARENCHYMAL COMPOSITION: The breasts are heterogenously dense, which may obscure small masses FINDINGS: MAMMOGRAPHIC FINDINGS: There is persistent asymmetry with architectural distortion in the lower inner quadrant of the right breast near the nipple. There are no suspicious calcifications. There is an additional area of agata ectural distortion in the lower outer quadrant of the right breast. There are scattered benign-appear ing calcifications. ULTRASOUND: Complete right breast US of all 4 quadrants of the breasts and retroareolar region was reviewed. At 9 :00, 4 cm from the nipple, there is an irregular shaped hypoechoic mass with posterior shadowing, ant iparallel configuration and no significant internal vascularity measuring 9 x 6 x 6 mm. At 3:00, 4 cm from the nipple, there is an irregular shaped hypoechoic mass measuring 9 x 8 x 10 mm. There is post erior shadowing. No internal vascularity. There are multiple additional simple and complicated cysts throughout the right breast. There is an intramammary lymph node in the right breast at 11:00, 4 cm f rom the nipple measuring 1 cm. IMPRESSION: 1. Abnormal masses of the right breast located at 9:00, 4 cm from the nipple and 3:00, 4 cm from the nipple. 2. Ultrasound-guided right breast biopsies recommended. BI-RADS category 4, suspicious findings. Reviewed, dictated and finalized at location A. EL DRIER OPERATOR IMPRESSION: 1. Abnormal masses of the right breast located at 9:00, 4 cm from the nipple an d 3:00, 4 cm from the nipple. 2. Ultrasound-guided right breast biopsies recommended. BI-RADS category 4, suspicious findings.
== END ==
PROVIDERS: PCP Family Medicine Adolescent Medicine; Visit Provider Internal Medicine Medical Oncology
DX: Z85.3 Personal history of malignant neoplasm of breast (principal); R92.8 Other abnormal and inconclusive findings on diagnostic imaging of breast; N63.41 Unspecified lump in right breast, subareolar
CPT/HCPCS: 76641; 77061; 77065; G0279

== ENCOUNTER 2021-08-12 09:03 | Outpatient (CLI) | payer MEDICARE, SELFPAY ==
--- NOTE | ~2021-08-12 | MMUS_ITS ---
US breast biopsy RT w image, MM post biopsy invasive RT, US breast bx add lesion RT EXAMINATION: US G UIDED NEEDLE BIOPSY WITH VACUUM ASSISTANCE DATE: 08/12/2021 10:39 ELECTRIC LIFT TRUCK DRIVER INDICATION: Right breast masses identified on prior examination at the 3 and 9:00 [facility] Ultrasound-guided core biopsy is requested to evaluate for malignancy. TECHNIQUE AND FINDINGS: The risks and potential benefits of the procedure were discussed with the patient, and written inform ed consent was obtained. After sterile preparation of the right breast, 1% lidocaine was utilized fo r local anesthesia. 1% lidocaine with epinephrine was used for deep anesthesia. A 10G vacuum-assisted biopsy gun needle was advanced through to the outer edge of the regions of inte rest approach utilizing sonographic guidance. A total of 4 tissue core samples at 3:00 and 5 tissue core specimens at 9:00 were obtained. Inrad tissue marker clips were then placed at the biopsy sites. Hemostasis was achieved. The patient tolerated procedure well and there was no evidence of immediate complication. The patien t was given verbal instructions partly is from the department. Right breast mammograms to document t issue marker clip placement. The tissue samples were submitted to surgical pathology for histologic a nalysis. IMPRESSION: 1. Successful ultrasound-guided vacuum-assisted biopsies of right breast mass with tissue marker maria isabel cement. Please refer to pathology report for histologic analysis. Reviewed, dictated and finalized at location A. TRIC LIFT TRUCK DRIVER IMPRESSION: 1. Successful ultrasound-guided vacuum-assisted biopsies of right breast mass with tissue marker placement. Please refer to pathology report for histologic a nalysis. IMPRESSION: 1. Successful ultrasound-guided vacuum-assisted biopsies of right breast mass with tissue marker placement. Please refer to pathology report for histologic a nalysis.
== END 2021-08-12 09:04 | disposition home or self-care (01) ==
LOC: ANHIMG 09:08
PROVIDERS: PCP Family Medicine Adolescent Medicine; Visit Provider Internal Medicine Medical Oncology
DX: N64.9 Disorder of breast, unspecified (principal)
CPT/HCPCS: 19083; 19084; 88305; A4648

== ENCOUNTER → 2021-11-06 09:15 | Outpatient (CLI) | payer MEDICARE, SELFPAY ==
--- NOTE | ~2021-11-06 | MMUS_ITS ---
EXAMINATION: MM diagnostic aundrea RT w ivelisse, US soft tissue chest, US breast RT complete HISTORY: Prior benign right breast biopsies. History of left breast cancer status post mastectomy and radiation therapy. Right breast hardening. TECHNIQUE: Additional 3-D tomosynthesis images of the right breast were performed and synthetic 2-D i mages were generated. CAD analysis was submitted and interpreted. High resolution right breast and le ft chest ultrasound was performed. COMPARISON: Comparison to multiple prior studies sequentially, with oldest reviewed study dated 05/16. BREAST PARENCHYMAL COMPOSITION: The breasts are extremely dense, which lowers the sensitivity of mamm ography FINDINGS: MAMMOGRAPHIC FINDINGS: There are no suspicious masses, calcifications or architectural distortion in the right breast to sug gest malignancy. There are benign right breast calcifications. There is chronic skin thickening of th e right breast, possibly from previous radiation therapy. ULTRASOUND: Complete US of all 4 quadrants of the right breast and retroareolar region was reviewed. There are sm all cysts at 2:00 near the areola measuring 4 mm and at 7:00, 6 cm from the nipple measuring 7 mm. No solid or suspicious masses are identified. Left chest wall ultrasound: Normal heterogeneous echotexture without focal solid or cystic mass. IMPRESSION: 1. No evidence for malignancy in the right breast or left chest wall. 2. Recommend clinical management for right breast firmness/thickening. Consider surgical consultation for possible punch biopsy if there is concern for an inflammatory breast carcinoma. Otherwise, 12 mo nth interval diagnostic right mammogram recommended. BI-RADS Category 2: Benign finding(s). Reviewed, dictated and finalized at location A. IMPRESSION: 1. No evidence for malignancy in the right breast or left chest wall. 2. Recommend clinical management for right breast firmness/thickening. Consider surgical consultation for possible punch biopsy if there is concern for an inf lammatory breast carcinoma. Otherwise, 12 month interval diagnostic right mammo gram recommended. BI-RADS Category 2: Benign finding(s). IMPRESSION: 1. No evidence for malignancy in the right breast or left chest wall. 2. Recommend clinical management for right breast firmness/thickening. Consider surgical consultation for possible punch biopsy if there is concern for an inf lammatory breast carcinoma. Otherwise, 12 month interval diagnostic right mammo gram recommended. BI-RADS Category 2: Benign finding(s).
== END ==
PROVIDERS: PCP Family Medicine Adolescent Medicine; Visit Provider Internal Medicine Medical Oncology
DX: C50.412 Malignant neoplasm of upper-outer quadrant of left female breast (principal); Z17.0 Estrogen receptor positive status [ER+]; R22.2 Localized swelling, mass and lump, trunk; N63.10 Unspecified lump in the right breast, unspecified quadrant; N64.4 Mastodynia
CPT/HCPCS: 76604; 76641; 77061; 77065; G0279

== ENCOUNTER 2021-11-25 09:29 | Outpatient (CLI) | payer MEDICARE, SELFPAY ==
--- NOTE | ~2021-11-25 | CT_ITS ---
EXAMINATION: CT diagnostic chest w con DATE: 11/25/2021 10:28 INDICATION: Right breast mass, history of left breast cancer TECHNIQUE: Transaxial computed tomographic images of the chest were obtained after the administration of 75 cc of Omnipaque 350 intravenous contrast. The dose-length product (DLP) was 406.06 mGy-cm. Ite rative reconstruction was used. COMPARISON: 09/08/2020 FINDINGS: There are changes of left mastectomy. There is diffuse skin thickening of the right breast. There is a retained left-sided pacer wire which ends in the right ventricle. Cardiomegaly is noted. There is mild atelectasis of the right middle lobe. A calcified nodule of the right lower lobe is con sistent with old granulomatous disease. No pathologically enlarged thoracic lymph nodes are identifie d. There is moderate thoracic spondylosis. There are changes of coronary artery bypass grafting. The gallbladder is surgically absent. A small sliding hiatal hernia is noted. IMPRESSION: 1. Diffuse skin thickening of the right breast which can be seen in the setting of inflammatory breas t carcinoma. Surgical referral and skin punch biopsy are recommended. Reviewed, dictated and finalized at location A. IMPRESSION: 1. Diffuse skin thickening of the right breast which can be seen in the setting of inflammatory breast carcinoma. Surgical referral and skin punch biopsy are recommended.
[2021-11-25 10:16] LABS: Estimated Glomerular Filt Rate 36
== END 2021-11-25 09:30 ==
PROVIDERS: PCP Family Medicine Adolescent Medicine; Visit Provider Internal Medicine Medical Oncology
DX: C50.412 Malignant neoplasm of upper-outer quadrant of left female breast (principal); R22.2 Localized swelling, mass and lump, trunk; Z17.0 Estrogen receptor positive status [ER+]
CPT/HCPCS: 71260; Q9967

== ENCOUNTER 2022-01-07 01:39 | Day surgery (SDC) | payer MEDICARE, SELFPAY ==
[2022-01-04 09:26] VITALS: BMI 36.6
--- NOTE | 2022-01-04 09:50 | PC.NURSE ---
Report to the Outpatient Waiting Room, entrance under the green pavilion located off [facility], at time _1200_ on date _01/07/22_. OR Time: _2:00 PM_. - You and your visitor will be asked a series of questions to screen for COVID 19 for your protection. - Only one visitor is allowed at this time. - The patient visitor is requested to leave or wait in car when not with patient. - A mask is required within the hospital. Patients may have clear liquids (water, carbonated beverages, clear teas, apple juice) until 3 hours prior to surgery (1100 AM) with a maximum of 20 ounces. - No food from midnight until time of surgery Take the following medications with a SIP of water the morning of surgery: _LEVOTHYROXINE_ Medications to discontinue per physician _PLAVIX 5 DAYS PRIOR TO SURGERY - PT STATS LAST DOSE WAS ON (TUESDAY) 01/02/22 _ Medications to discontinue per ANESTHESIA - VITAMIN D3 - 3 DAYS PRIOR TO SURGERY, Date to take last dose 01/03/22 (OR OF TODAY 01/04/22)_ Please no make-up, nail persian, hairspray, perfume, deodorant, or body powder the day of surgery. No jewelry (including any body piercings) or valuables the day of surgery, leave them at home. Please take a shower or bath the night before, or the morning of, surgery with an antibacterial soap. Wear comfortable, loose fitting clothing. - Jewelry must be removed prior to entering the operating room. Rings and piercings that are not removed may be cut off. - The hospital will not accept responsibility for valuables. - Please leave all valuables, including medications, at home the day of surgery. If you are going home after surgery, a licensed dairy truck driver must drive you home. - NO public transportation without another adult. - We recommend that an adult stay with you for 24 hours following discharge. - We also recommend that you do not drive, make important decision, drink alcoholic beverages, or take any drugs that were not prescribed by your health care provider for at least 24 hours after your discharge time. Follow any additional instructions given to you from your surgeon. HIBICLENS SHOWER AM OF SURGERY If you or anyone in your household have experienced Covid symptoms in the past week, please notify your surgeon or the nurse liaison at the phone number below for possible testing. Telephone instructions given to _PT_and asked if any additional questions and then verbalized understanding. Patient advised to call surgeon office or pre surgery nurse liaison [phone] if any additional questions.
--- NOTE | 2022-01-07 12:38 | WPDHPUPDATE1 ---
History and Physical Update Update Date/Time: 01/07/22 12:38 History and Physical has been reviewed, including an updated exam of the patient. There are NO changes in the patient's condition. Risks, benefits, and alternatives have been discussed and questions answered. Patient agrees to proceed with procedure.
[2022-01-07] MEDS: ACETAMINOPHEN 500 MG TABLET 1000 MG PO (12:53)
[2022-01-07] MEDS: KETOROLAC 15 MG/ML VIAL (*BKC) IV PUSH (12:55)
--- NOTE | 2022-01-07 12:59 | WPDANESEPPF ---
Anes - Initial Pre Proc Eval Procedure: Operation Date: 01/07/22 14:00 Proposed Procedures p Excisional Biopsy Right Breast Inflammatory Mass - Jen Gusman MD Date/Time: 01/07/22 12:59 Surgeon: Jen Gusman MD Pre Op Diagnosis: right breast inflammatory mass Patient Data Age: 81 Gender: F Height: 1.57 m Weight: 90.9 kg Allergies Allergy/AdvReac Type Severity Reaction Status Date / Time erythromycin base Allergy Severe Itching Verified 01/04/22 09:16 ethyl alcohol Allergy Severe Itching Verified 01/04/22 09:16 amoxicillin Allergy Unknown Itching Verified 01/04/22 09:16 clavulanic acid Allergy Unknown Itching Verified 01/04/22 09:16 clonidine Allergy Unknown Drowsy Verified 01/04/22 09:16 codeine Allergy Unknown Nausea and Verified 01/04/22 09:16 Vomiting metronidazole Allergy Unknown Nausea and Verified 01/04/22 09:16 Vomiting, ITCHING morphine Allergy Unknown Nausea and Verified 01/04/22 09:16 Vomiting Penicillins Allergy Unknown Itching Verified 01/04/22 09:16 Sipcgmk-HBR-PlR Reductase Allergy Unknown Joint Pain Verified 01/04/22 09:16 Inhibitor [Sliiksm-Iwv-Vkr Reductase Inhibitor] adhesive AdvReac Mild Itching Verified 01/04/22 09:16 lisinopril AdvReac Unknown Headache Verified 01/04/22 09:16 and dizziness, no angioedema Home Medications Medication Instructions Recorded Confirmed Type allopurinol 100 mg tablet 200 mg PO QAM 07/04/19 01/04/22 History cholecalciferol (vitamin D3) 25 25 mcg PO QAM 12/15/20 01/04/22 History mcg (1,000 unit) capsule montelukast 10 mg tablet 10 mg PO QAM 02/03/21 01/04/22 History losartan 50 mg tablet 50 mg QAM 03/07/21 01/04/22 History furosemide 40 mg tablet 40 mg PO QAM #90 tabs 09/02/21 01/04/22 Rx levothyroxine 150 mcg tablet 150 mcg PO QAM #90 tabs 10/26/21 01/04/22 Rx omeprazole 20 mg capsule,delayed 20 mg PO BID PRN Acid Reflux #60 10/30/21 01/04/22 Rx release caps celecoxib 200 mg capsule 200 mg PO BID #60 caps 11/05/21 01/04/22 Rx aspirin 81 mg tablet,delayed 81 mg PO DAILY 12/16/21 01/04/22 History release (Adult Aspirin Regimen) clopidogrel 75 mg tablet (Plavix) 75 mg PO DAILY 12/16/21 01/04/22 History benzonatate 200 mg capsule 200 mg PO TID PRN cough #20 caps 01/04/22 Rx levofloxacin 500 mg tablet 500 mg PO DAILY #7 tabs 01/04/22 Rx potassium chloride 20 mEq 20 meq PO TID 01/04/22 01/04/22 History tablet,extended release(part/cryst) (Klor-Con M) Patient hx anesthesia problems: none Family hx anesthesia problems: none Results Review: All pre-operative results and documents have been reviewed as part of the pre-operative evaluation. [facility] Past Medical History Medical History Combined congestive systolic and diastolic heart failure Echocardiogram on 12/17/2020 showed severe global hypokinesis, grade 2 diastolic dysfunction, with a calculated EF of 25%, and moderate pulmonary hypertension. Coronary artery disease involving [place] heart History of left breast cancer Status post mastectomy and chemoradiation. History of [place] (myocardial infarction) (~2013) Hypertension Hypothyroidism Ischemic cardiomyopathy Status post ICD insertion and subsequent generator explant. Low serum IgG2 subclass level Obstructive sleep apnea On CPAP with nasal pillows. Persistent asthma without complication Pulmonary hypertension Surgical History Surgical History History of bilateral knee arthroplasty History of cataract extraction History of cholecystectomy History of coronary artery bypass graft (2013) History of left mastectomy (2011) History of partial colectomy (2013) History of sinus surgery (2015) History of thyroidectomy Family History Family History Mother Family history of osteoarthritis Father Heart dise
[2022-01-07 13:00] VITALS: BP 172/67; PULSE 76; RESP 16; TEMP 36.6; O2SAT 98
[2022-01-07] MEDS: LACTATED RINGERS 1,000 ML 30 ML IV CONT (13:00)
[2022-01-07 13:27] LABS: Anion Gap 8 mmol/L (8-16); Blood Urea Nitrogen 20 mg/dL (7-17); Calcium 9.2 mg/dL (8.4-10.2); Carbon Dioxide 26 mmol/L (22-30); Chloride 107 mmol/L (98-107); Estimated CRCL calculation 32 ml/min; Estimated Glomerular Filt Rate 39; Glucose 99 mg/dL (65-110); Potassium 3.9 mmol/L (3.4-5.0); Sodium 141 mmol/L (137-145)
[2022-01-07] MEDS: ceFAZolin 2 GM/D5W 50 ML 2 GM/50 ML BAG IVPB (14:01)
--- NOTE | 2022-01-07 14:35 | SUR.OPER ---
specimen given to willi in path. by aicha at [id number]
[2022-01-07 14:42] VITALS: BP 130/59; PULSE 71; RESP 14; O2SAT 97
--- NOTE | 2022-01-07 14:51 | W.PM.PROC2 ---
Procedure Note - Detailed Date of Procedure 01/07/22 Pre-op Diagnosis right breast inflammatory mass Post-op Diagnosis Same Procedure Performed incisional biopsy right breast inflammatory mass Surgeon Jen Gusman MD Anesthesia MAC and Local Indications 81-year-old female presenting to the office with inflammatory mass of right breast, no improvement with antibiotics Findings inflammatory mass right upper outer breast involving nipple-areolar complex Description of Procedure The patient was taken to the operating room and placed in the supine position. After adequate induction of MAC anesthesia, the patient was prepped and draped in the normal sterile. A time-out was then done to verify the patient's identity, as well as the procedure being performed. I began by localizing an area of our incisional biopsy which would involve part of the outer areolar area in the right upper outer breast. I then made a elliptical incision to include a adequate amount of dermis for biopsy. This incision was carried down to the breast tissue, which was also noted to be inflamed. A sales representative womens health specimen was taken, again including the dermis. This will now be sent to pathology for further review. I then gained hemostasis with the Bovie cautery. The cavity was copiously irrigated. I then closed the subcutaneous tissue with 3-0 Vicryl suture. The skin was closed with 4 Monocryl subcuticular suture. Dermabond was then placed on the wound. The patient tolerated the procedure well was alert and awake in the operating room postop. She will be sent to the recovery room in stable condition. Estimated Blood Loss 10 Pathology Yes Complications No immediate complications Condition Stable Disposition PACU [facility] Billing Surgery - Charge Forward: Surgery Billing
[2022-01-07 15:10] VITALS: BP 142/73; PULSE 72; RESP 16
[2022-01-07 15:40] VITALS: BP 134/58; PULSE 69; RESP 16
== END 2022-01-07 16:00 | disposition home or self-care (01) ==
PROVIDERS: Anesthesiology; PCP Family Medicine Adolescent Medicine; Visit Provider Surgery
PROC: (CPT 19101; principal; 2022-01-07 14:00)
DX: C50.411 Malignant neoplasm of upper-outer quadrant of right female breast (principal); I25.5 Ischemic cardiomyopathy; I11.0 Hypertensive heart disease with heart failure; I50.40 Unspecified combined systolic (congestive) and diastolic (congestive) heart failure; I25.2 Old myocardial infarction; E89.0 Postprocedural hypothyroidism; G47.33 Obstructive sleep apnea (adult) (pediatric); J45.30 Mild persistent asthma, uncomplicated; I25.10 Atherosclerotic heart disease of native coronary artery without angina pectoris; Z95.1 Presence of aortocoronary bypass graft; Z90.49 Acquired absence of other specified parts of digestive tract; Z87.891 Personal history of nicotine dependence; E66.9 Obesity, unspecified; Z68.34 Body mass index [BMI] 34.0-34.9, adult; Z92.21 Personal history of antineoplastic chemotherapy; Z92.3 Personal history of irradiation
CPT/HCPCS: 19101; 36415; 80048; 88305; 88360; A9270; C9803; J0690; J1885; J2405; J2704; J3010; J7120; U0003; U0005

== ENCOUNTER 2022-01-07 09:08 | Outpatient (CLI) | payer MEDICARE, SELFPAY ==
[2022-01-07 09:59] LABS: SARS-CoV-2 RNA PCR Negative
== END 2022-01-07 09:09 | disposition home or self-care (01) ==
PROVIDERS: PCP Family Medicine Adolescent Medicine; Visit Provider Surgery
DX: Z01.812 Encounter for preprocedural laboratory examination (principal); Z20.822 Contact with and (suspected) exposure to COVID-19
CPT/HCPCS: C9803; U0003; U0005

== ENCOUNTER 2022-01-26 08:22 | Outpatient (CLI) | payer MEDICARE, SELFPAY ==
--- NOTE | 2022-01-26 08:30 | ECG_ITS ---
Measurements Intervals [place] Rate: 59 P: 63 SC: 233 QRS: -5 QRSD: 110 T: 123 QT: 389 QTc: 388 Interpretive Statements SINUS BRADYCARDIA WITH SINUS ARRHYTHMIA WITH FIRST DEGREE AV BLOCK LEFT VENTRICULAR HYPERTROPHY AND ST-T CHANGE POSSIBLE ANTERIOR MYOCARDIAL INFARCTION, OF INDETERMINATE AGE Electronically Signed On 01-26-2022 11:20:56 CDT by Malik Draper M.D.
[2022-01-26 09:20] LABS: Anion Gap 7 mmol/L (8-16); Blood Urea Nitrogen 27 mg/dL (7-17); Calcium 9.5 mg/dL (8.4-10.2); Carbon Dioxide 23 mmol/L (22-30); Chloride 110 mmol/L (98-107); Estimated Glomerular Filt Rate 39; Glucose 106 mg/dL (65-110); Potassium 3.7 mmol/L (3.4-5.0); Sodium 140 mmol/L (137-145)
== END 2022-01-26 08:23 | disposition home or self-care (01) ==
LOC: ANHSURGERY 08:27
PROVIDERS: Anesthesiology; PCP Family Medicine Adolescent Medicine; Visit Provider Surgery
DX: Z01.818 Encounter for other preprocedural examination (principal); C50.911 Malignant neoplasm of unspecified site of right female breast; Z51.81 Encounter for therapeutic drug level monitoring; Z79.899 Other long term (current) drug therapy; I10 Essential (primary) hypertension; R00.1 Bradycardia, unspecified; I44.0 Atrioventricular block, first degree
CPT/HCPCS: 36415; 80048; 86850; 86900; 86901; 93005

== ENCOUNTER 2022-02-04 08:50 | Inpatient (IN) | payer MEDICARE, SELFPAY ==
[2022-01-22 12:16] VITALS: BMI 35.9
--- NOTE | 2022-01-22 12:53 | PC.NURSE ---
Report to the Outpatient Waiting Room, entrance under the green pavilion located off [facility], at time __10:00AM on date __02/04/22 . OR Time: ___12:00PM . - You and your visitor will be asked a series of questions to screen for COVID 19 for your protection. - Only one visitor is allowed at this time. - The patient visitor is requested to leave or wait in car when not with patient. - A mask is required within the hospital. Patients may have clear liquids (water, carbonated beverages, clear teas, apple juice) until 3 hours prior to surgery with a maximum of 20 ounces. - No food from midnight until time of surgery - Infants may have breast milk until 4 hours before surgery, formula 6 hours prior to surgery. - Children will be allowed to drink immediately following surgery. If applicable, please bring a bottle or sippy cup to assist with drinking. Juice, water, soda, and popsicles are readily available. For infants on formula, please bring formula the day of surgery. Pacifiers are allowed. Take the following medications with a SIP of water the morning of surgery: __LEVOTHYROXINE Medications to discontinue per physician __HOLD PLAVIX 5 DAYS PRE-OP PER DR ALAS-LAST DOSE 01/30/22 HOLD ALL VITAMINS/SUPPLEMENTS 3 DAYS PRE-OP-LAST DOSE 02/01/22 Please no make-up, nail english, hairspray, perfume, deodorant, or body powder the day of surgery. No jewelry (including any body piercings) or valuables the day of surgery, leave them at home. Please take a shower or bath the night before, or the morning of, surgery with an antibacterial soap. Wear comfortable, loose fitting clothing. Children are encouraged to wear pajamas. - Jewelry must be removed prior to entering the operating room. Rings and piercings that are not removed may be cut off. - The hospital will not accept responsibility for valuables. - Please leave all valuables, including medications, at home the day of surgery. HIBICLENS SHOWER MORNING OF SURGERY If you are going home after surgery, a licensed regional company hazmat tanker driver must drive you home. - NO public transportation without another adult. - We recommend that an adult stay with you for 24 hours following discharge. - We also recommend that you do not drive, make important decision, drink alcoholic beverages, or take any drugs that were not prescribed by your health care provider for at least 24 hours after your discharge time. For Pediatric surgeries, we recommend two adults accompany the child home (only one inside the building at this time). Follow any additional instructions given to you from your surgeon. If you or anyone in your household have experienced Covid symptoms in the past week, please notify your surgeon or the nurse liaison at the phone number below for possible testing. Telephone instructions given to __PATIENT and asked if any additional questions and then verbalized understanding. Patient advised to call surgeon office or pre surgery nurse liaison [phone] if any additional questions.
[2022-02-04] VITALS (12 sets, daily range): BP systolic 132–174; BP diastolic 41–96; PULSE 59–72; RESP 16–22; TEMP 36.4–36.8; O2SAT 95–100
--- NOTE | ~2022-02-04 | NM_ITS ---
NM sentinel node inject only DATE: 02/04/2022 13:34 INDICATION: Right breast cancer; preoperative injection for sentinel node localization TECHNIQUE: 4 equally divided doses totaling cumulative 1.097 mCi 99m technetium Lymphoseek were injec dereje subdermally at the periareolar areas at 12:00, 3:00, 6:00 and 9:00. IMPRESSION: Preoperative periareolar 99m technetium Lymphoseek injections Reviewed, dictated and finalized at [facility]. Reviewed, dictated and finalized at [facility].
[2022-02-04] MEDS: ACETAMINOPHEN 500 MG TABLET 1000 MG PO (10:16)
--- NOTE | 2022-02-04 10:17 | WPDHPUPDATE1 ---
History and Physical Update Update Date/Time: 02/04/22 10:17 History and Physical has been reviewed, including an updated exam of the patient. There are NO changes in the patient's condition. Risks, benefits, and alternatives have been discussed and questions answered. Patient agrees to proceed with procedure.
[2022-02-04] MEDS: LACTATED RINGERS 1,000 ML 30 ML IV CONT (10:40)
[2022-02-04] MEDS: KETOROLAC 15 MG/ML VIAL (*BKC) IV PUSH (10:41)
--- NOTE | 2022-02-04 10:49 | WPDANESEPPF ---
Anes - Initial Pre Proc Eval Procedure: Operation Date: 02/04/22 12:00 Proposed Procedures p Right Mastectomy with Right Axillary [place] Lymph Node Biopsy - Jen Gusman MD Date/Time: 02/04/22 10:49 Surgeon: Jen Gusman MD Pre Op Diagnosis: Rt Breast Cancer Patient Data Age: 81 Gender: F Height: 1.57 m Weight: 86.9 kg Last Vital Signs Temp 36.6 C 02/04/22 10:42 Pulse 63 02/04/22 10:42 Resp 16 02/04/22 10:42 BP 161/53 H 02/04/22 10:42 Pulse Ox 99 02/04/22 10:42 O2 Del Method Room Air 02/04/22 10:42 Allergies Allergy/AdvReac Type Severity Reaction Status Date / Time erythromycin base Allergy Severe Itching Verified 01/22/22 12:11 amoxicillin Allergy Unknown Itching Verified 01/22/22 12:11 clavulanic acid Allergy Unknown Itching Verified 01/22/22 12:11 Penicillins Allergy Unknown Itching Verified 01/22/22 12:11 adhesive AdvReac Mild Itching Verified 01/22/22 12:11 codeine AdvReac Unknown Nausea and Verified 01/22/22 12:11 Vomiting lisinopril AdvReac Unknown Headache Verified 01/22/22 12:11 and dizziness, no angioedema metronidazole AdvReac Unknown Nausea and Verified 01/22/22 12:11 Vomiting, ITCHING morphine AdvReac Unknown Nausea and Verified 01/22/22 12:11 Vomiting Nsfjpes-XJR-BkH Reductase AdvReac Unknown Joint Pain Verified 01/22/22 12:11 Inhibitor [Hatgghe-Mhq-Pjt Reductase Inhibitor] Home Medications Medication Instructions Recorded Confirmed Type allopurinol 100 mg tablet 200 mg PO QAM 07/04/19 02/04/22 History cholecalciferol (vitamin D3) 25 25 mcg PO QAM 12/15/20 02/04/22 History mcg (1,000 unit) capsule losartan 50 mg tablet 50 mg PO QAM 03/07/21 01/22/22 History furosemide 40 mg tablet 40 mg PO QAM #90 tabs 09/02/21 02/04/22 Rx celecoxib 200 mg capsule 200 mg PO BID #60 caps 11/05/21 02/04/22 Rx aspirin 81 mg tablet,delayed 81 mg PO DAILY 12/16/21 02/04/22 History release (Adult Aspirin Regimen) clopidogrel 75 mg tablet (Plavix) 75 mg PO QAM 12/16/21 02/04/22 History potassium chloride 20 mEq 20 meq PO TID 01/04/22 02/04/22 History tablet,extended release(part/cryst) (Klor-Con M) evolocumab 420 mg/3.5 mL 1 ea subcut MONTHLY 01/22/22 02/04/22 History subcutaneous wearable injector (Repatha Pushtronex) levothyroxine 150 mcg tablet 150 mcg PO QAM #90 tabs 01/25/22 02/04/22 Rx montelukast 10 mg tablet See Rx Instructions .Route 01/25/22 02/04/22 Rx .COMPLEX #90 tabs omeprazole 20 mg capsule,delayed 20 mg PO BID PRN Acid Reflux #60 01/25/22 Rx release caps Patient hx anesthesia problems: none Family hx anesthesia problems: none Results Review: All pre-operative results and documents have been reviewed as part of the pre-operative evaluation. [facility] Past Medical History Medical History Combined congestive systolic and diastolic heart failure Echocardiogram on 12/17/2020 showed severe global hypokinesis, grade 2 diastolic dysfunction, with a calculated EF of 25%, and moderate pulmonary hypertension. Coronary artery disease involving [place] heart History of left breast cancer Status post mastectomy and chemoradiation. History of [place] (myocardial infarction) (~2013) Hypertension Hypothyroidism Ischemic cardiomyopathy Status post ICD insertion and subsequent generator explant. Low serum IgG2 subclass level Obstructive sleep apnea On CPAP with nasal pillows. Persistent asthma without complication Pulmonary hypertension Surgical History Surgical History History of bilateral knee arthroplasty History of cataract extraction History of cholecystectomy History of coronary artery bypass graft (2013) History of left mastectomy (2011) History of partial colectomy (2013) History of sinus surgery (2015) History of thyroidectomy Family History Family History (Reviewed
--- NOTE | 2022-02-04 10:59 | SUR.PREOP ---
To Nuc med per stretcher.
[2022-02-04] MEDS: ceFAZolin 2 GM/D5W 50 ML 2 GM/50 ML BAG IVPB (11:52)
[2022-02-04] MEDS: LIDO 2%/EPINEPHRINE 1:100,000 20 ML VIAL INFILTRATE (12:33)
[2022-02-04] MEDS: METHYLENE BLUE 0.5% INJ 10 ML AMPULE 5 ML IRRIGATION (12:38)
--- NOTE | 2022-02-04 14:06 | P.OP_ITS ---
Procedure Note - Detailed Date of Procedure 02/04/22 Pre-op Diagnosis Right inflammatory breast cancer Post-op Diagnosis Same Procedure Performed right mastectomy with right axillary sentinel lymph node biopsy Surgeon Jen Gusman MD Anesthesia General Indications 81-year-old female presenting with inflammatory right breast cancer status post diagnosis by incisional biopsy Findings hard mass involving overlying dermis of right nipple areolar complex extending to right upper outer quadrant Description of Procedure The patient was taken the operating room and placed in the supine position. After induction of general anesthesia, the patient was prepped and draped in the normal sterile fashion. A time-out was then done to verify the patient's identity as well as the procedure being performed. I then injected 4 cc of methylene blue mixed with normal saline in the 4 quadrants of the nipple-areolar complex. This was then massaged into the right axilla for approximately 5 minutes. Patient also had undergone preoperative lymphoscintigraphy. I then made the incision in the breast. This was done in a ovoid shape to favor the upper outer quadrant of the breast, including the area of the previous biopsy. Once incision was made, this was taken down to the breast tissue. I then began to make my superior by the breast tissue off the overlying dermis. This was done until we reached the clavicle. I then made my inferior flap by the breast tissue off the overlying dermis to the inframammary fold. The medial margin was taken to the sternum and the lateral margin was taken to the anterior border of the latissimus. Once these margins were achieved, I began to take the breast tissue off the underlying chest wall. I was then able to detach the breast tissue completely and this was sent to pathology for further review. I then used the [place] counter to identify the sentinel lymph nodes. Of note, there was very little activity in the right axilla likely secondary to dermal lymphatic obstruction from the cancer. I then opened up the right axilla from her previous incision. Upon getting into the right axilla, there was noted to be some faintly blue in the lymph nodes. These were noted to be moderately enlarged. I went ahead and removed these 2 lymph nodes. The [place] counter was minimally active and both lymph nodes. These lymph nodes were sent to pathology as right axillary sentinel lymph nodes. No other blue or hot lymph nodes were noted in the right axilla. At this point I copiously irrigated the cavity. No other obvious pathology was noted. I left a 15 [place] drain in the mastectomy bed coming out through an incision in the right lateral chest wall. The incision was then closed with interrupted 3-0 Vicryl sutures in the subcutaneous space. Skin was closed with skin raheem. The patient tolerated the procedure well and was extubated in the operating room postoperatively. She will be sent to the recovery room in stable condition. Estimated Blood Loss 150 Drains Yes Pathology Yes Complications No immediate complications Condition Stable Disposition PACU [facility] Billing Surgery - Charge Forward: Surgery Billing
[2022-02-04] MEDS: ONDANSETRON INJ 4 MG/2 ML VIAL IV PUSH (14:15)
--- NOTE | 2022-02-04 15:48 | PC.NURSE ---
This patient, Jacqueline Duenas, was admitted to Medical Room 258-. Patient/family oriented to hospital policies and general routines including ID bracelet, bed and alarms, visiting hours, pain management, procedures, bathroom and other care routines, personal items, smoking policy, room service/diet, and visiting hours. Information on how to activate the Rapid Response Team has been discussed. Patient/Family are encouraged to report perceived risks to care and to ask questions if they do not understand what they are told or what they should do.
[2022-02-04] MEDS: POTASSIUM CHLORIDE 20 MEQ TABLET.ER PO (16:55)
[2022-02-04] MEDS: CELECOXIB 200 MG CAPSULE PO (16:55)
[2022-02-04] MEDS: LACTATED RINGERS 1,000 ML 100 ML IV CONT (16:56)
[2022-02-04] MEDS: HYDROcodone/acetaminophen (*CRX) 5-325 MG TABLET 1 TAB PO (20:02)
[2022-02-04] MEDS: WATER FOR IRRIGATION, STERILE 1,000 ML BOTTLE 1000 ML (21:26)
[2022-02-05] MEDS: LEVOTHYROXINE SODIUM 150 MCG TABLET PO (05:53)
[2022-02-05 08:10] VITALS: BP 118/50; PULSE 65; RESP 16; TEMP 36.9; O2SAT 98
--- NOTE | 2022-02-05 08:23 | WPDANESPN ---
Anes - Prog Note Post-Op Date/Time: 02/05/22 08:23 Vital Signs: Last Vital Signs Temp 36.9 C 02/05/22 08:10 Pulse 65 02/05/22 08:10 Resp 16 02/05/22 08:10 BP 118/50 L 02/05/22 08:10 Pulse Ox 98 02/05/22 08:10 O2 Del Method Room Air 02/04/22 15:15 O2 Flow Rate 6 02/04/22 14:00 Pain Score (VAS): 0 I/O: Intake & Output 02/04/22 02/05/22 02/05/22 23:59 07:59 15:59 Intake Total 630 1350 Output Total 30 30 Balance 600 1320 Patient Feedback: Patient satisfied with anesthetic care.
[2022-02-05] MEDS: CHOLECALCIFEROL 1,000 UNITS TABLET 1000 UNITS PO (08:25)
[2022-02-05] MEDS: ASPIRIN 81 MG ENTERIC TABLET PO (08:25)
[2022-02-05] MEDS: FUROSEMIDE 40 MG TABLET PO (08:25)
[2022-02-05] MEDS: allopurinoL 100 MG TABLET 200 MG PO (08:25)
[2022-02-05] MEDS: CELECOXIB 200 MG CAPSULE PO (08:25)
[2022-02-05] MEDS: ENOXAPARIN 40 MG/0.4 ML SYRINGE SUB-Q (08:25)
[2022-02-05] MEDS: POTASSIUM CHLORIDE 20 MEQ TABLET.ER PO (08:26)
[2022-02-05] MEDS: LOSARTAN POTASSIUM 50 MG TABLET PO (08:26)
--- NOTE | 2022-02-05 08:36 | PM.DS ---
DS: Admitting Diagnosis Discharge Date 02/05/2022 Admitting Diagnosis Right inflammatory breast cancer DS: Discharge Diagnosis Discharge Diagnosis (1) Invasive ductal carcinoma of breast: Code(s): C50.919 - Malignant neoplasm of unspecified site of unspecified female breast Status: Acute Assessment and Plan: status post mastectomy and right axillary sentinel lymph node biopsy, doing well, instructions given for routine postoperative care and drain care, home with p.o. analgesia, follow-up in 1 week DS: Summary Hospital Course Reason for hospitalization: right inflammatory breast cancer Hospital Course: The patient is a 81-year-old female presenting with right biopsy proven inflammatory breast cancer. The patient was taken to the operating room on 02/04 and right mastectomy with right axillary sentinel lymph node biopsy was performed, please see full operative report for details. Postoperatively the patient did well and was transferred to the surgical floor. The patient had no issues overnight and her pain was well controlled. On postoperative day 1., the patient was tolerating a diet and up and ambulating without issue. She still has moderate amount of drainage from her right sided LORIE, so she will be discharged with that and taught drain care. The patient be discharged with p.o. analgesia and follow-up in 1 week. Status at Discharge Functional status at discharge: independent ambulation Overall status at discharge: patient is progressing back to baseline Time Spent with Patient Time attestation: Total time spent providing and/or coordinating discharge services: Exam Const: General: cooperative, comfortable and no acute distress Chest: Other: incision C/D/I, LORIE c s/s output Resp: Auscultation: clear to auscultation bilaterally Cardio: Rate: regular rate Rhythm: regular rhythm GI: Inspection: normal to inspection DS: Data Data Completed and Pending Pending studies at discharge: Pending at discharge 02/04/22 12:50 Surgical [PTH] Routine Discharge Plan Discharge Attending physician on discharge: Jen Gusman Discharging Clinician: Jen Gusman Anticipated Discharge Date/Time: 02/05/22 08:32 Patient Disposition: Home, Self-Care Activity: may shower and as tolerated Diet: as tolerated Wound Care Instructions: remove dressing to shower and change dressing daily Discharge Instructions: please teach drain care and record daily drainage Patient Instructions: Antibiotic Form, Mastectomy (DC), Mastectomy (GEN) Stand Alone Forms: General Discharge Information Follow-up/Referrals: Jen Gusman MD [Physician] - 1 Week Discharge Medications: New hydrocodone-acetaminophen 5-325 mg tablet 1 tablet PO Q6H PRN (Reason: pain) Qty: 20 0RF Continued aspirin [Adult Aspirin Regimen] 81 mg tablet,delayed release (DR/EC) 81 mg PO DAILY celecoxib 200 mg capsule 200 mg PO BID Qty: 60 3RF cholecalciferol (vitamin D3) 25 mcg (1,000 unit) Capsule 25 mcg PO QAM losartan 50 mg tablet 50 mg PO QAM potassium chloride [Klor-Con M20] 20 mEq tablet,ER particles/crystals 20 meq PO TID Repatha Pushtronex 420 mg/3.5 mL wearable injector 1 ea SUBCUT MONTHLY furosemide 40 mg tablet 40 mg PO QAM Qty: 90 1RF omeprazole 20 mg capsule,delayed release(DR/EC) 20 mg PO BID PRN (Reason: Acid Reflux) Qty: 60 5RF levothyroxine 150 mcg tablet 150 mcg PO QAM Qty: 90 1RF montelukast 10 mg tablet See Rx Instructions .ROUTE .COMPLEX Qty: 90 3RF Dose Instruction: TAKE 1 TABLET BY MOUTH EVERY DAY Rx Instructions: TAKE 1 TABLET BY MOUTH EVERY DAY allopurinol 100 mg tablet See Rx Instructions .ROUTE .COMPLEX Qty: 180 2RF Dose Instruction: TAKE TWO TABLETS BY MOUTH ONCE DAILY FOR GOUT Rx Instructions: TAKE TWO TABLETS BY MOUTH ONCE DAILY FOR GOUT clopidogrel 75 mg tablet See Rx Instruct
== END 2022-02-05 12:35 | disposition home health service (06) | DRG 580 ==
LOC: ANHSURGERY 10:38 → ANH2MED 17:02
PROVIDERS: Admitting Provider Surgery; PCP Family Medicine Adolescent Medicine; Visit Provider Surgery
PROC: 0HTT0ZZ Resection of Right Breast, Open Approach (ICD-10-PCS; principal; 2022-02-04 12:00)
DX: C50.811 Malignant neoplasm of overlapping sites of right female breast (principal); C77.3 Secondary and unspecified malignant neoplasm of axilla and upper limb lymph nodes; I50.42 Chronic combined systolic (congestive) and diastolic (congestive) heart failure; I25.10 Atherosclerotic heart disease of native coronary artery without angina pectoris; I11.0 Hypertensive heart disease with heart failure; E03.9 Hypothyroidism, unspecified; G47.33 Obstructive sleep apnea (adult) (pediatric); J45.30 Mild persistent asthma, uncomplicated; I25.5 Ischemic cardiomyopathy; Z96.653 Presence of artificial knee joint, bilateral; I25.2 Old myocardial infarction; Z90.12 Acquired absence of left breast and nipple; Z90.49 Acquired absence of other specified parts of digestive tract; Z95.1 Presence of aortocoronary bypass graft; Z98.49 Cataract extraction status, unspecified eye; Z87.891 Personal history of nicotine dependence; E66.9 Obesity, unspecified; Z68.35 Body mass index [BMI] 35.0-35.9, adult
CPT/HCPCS: 38792; 88307; A9270; A9520; J0690; J1650; J1885; J2405; J2704; J3010; J7120; Q9968

== ENCOUNTER 2022-03-02 07:32 | Outpatient (CLI) | payer MEDICARE, SELFPAY ==
--- NOTE | ~2022-03-02 | PE_ITS ---
EXAMINATION: PET skull to mid thigh DATE: 03/02/2022 10:03 INDICATION: Staging for breast cancer. TECHNIQUE: Blood glucose level was 117 mg/dL. 9.49 mCi of 18-fluorodeoxyglucose (18-FDG) was administ ered i.v. Low dose computed tomography (CT) images were acquired from the base of the brain to the pr oximal thighs for attenuation correction and anatomic localization. Positron emission tomography (PET ) images were acquired in the same distribution beginning 80 minutes after injection. Images includin g fused PET/CT images were reconstructed in axial, coronal, and sagittal planes. Automated exposure c ontrol technique was employed. The dose-length product was 955.73mGy-cm. COMPARISON: CT chest dated 11/25/2021 and PET/CT dated 03/01/2017 FINDINGS: Head/neck: There is symmetric increased activity in the oral and nasal cavities, submandibular glands, laryngeal muscles and ocular muscles without CT correlate, likely physiologic. There is increased FDG uptake a ssociated with prominent mucosal thickening in the bilateral maxillary sinuses. No pathologically enl arged cervical lymphadenopathy or suspicious foci of increased FDG uptake in the visualized head or n jovanni. Prominent atherosclerotic calcification is at the bilateral carotid bulbs. Chest: Large calcified right lower lobe nodule consistent with old granulomatous disease. No FDG uptake asso ciated with a likely benign chronic 6 mm pleural-based nodule in the posterior medial right upper lob e which was present at the time of the prior PET study. No suspicious pulmonary nodules, pneumonia, p ulmonary edema or pleural effusion. Cardiomegaly. Atherosclerotic coronary artery calcification. Medi an sternotomy wires and mediastinal surgical clips consistent with prior coronary artery bypass graft ing. No pericardial effusion. Retained cardiac pacemaker/AICD lead with distal tip near the apex of t he right ventricle and approximately 12: The left pectoral region without corresponding corresponding pacemaker. Vascular is normal in caliber. Postoperative change of bilateral mastectomies. There is s ome likely packing material or gauze overlying the site of the right mastectomy where there is skin t hickening, mild subcutaneous edema and associated linear band of increased FDG uptake consistent with expected postoperative change. 11 x 8 mm mildly FDG avid subcutaneous nodule anterior to the inferio r sternum with mild increased FDG uptake with maximal SUV of 3.5. No pathologically enlarged or FDG a vid thoracic lymphadenopathy. lymphadenopathy. Abdomen/pelvis/proximal thighs: Physiologic renal accumulation and excretion of FDG activity in the kidneys, bladder and along portio ns of ureters. Normal degree and heterogenous pattern of increased uptake throughout the liver withou t radiologic correlate or dominant FDG avid lesion. Cholecystectomy clips at the gallbladder fossa. T he gallbladder, pancreas, spleen and bilateral adrenal glands are normal. Mild to moderate uptake sca ttered throughout the bowels without radiologic correlate, also likely physiologic. Prominent diverti culosis along the descending and sigmoid colon without adjacent inflammatory change to suggest divert iculitis. Infrarenal IVC filter. No other abnormal foci of increased FDG uptake or pathologically enl arged lymphadenopathy in the abdomen, pelvis or proximal thighs. Musculoskeletal: Likely degenerative mild joint centered increased FDG uptake with associated degenerative skeletal ch anges at the atlantoaxial articulation, bilateral glenohumeral and mild sternoclavicular and elbow tang ints as well as multiple joints in the bilateral hands. No suspicious lytic, blastic or FDG avid bone lesions. IMPRESSION: 1. Expected mild linear FDG uptake along a recent-appearing surgical wound/scar for right mastectomy. 2. Mild increased uptake associated with an indeterminant 11 x 8 mm subcutaneous nodule a
[2022-03-02 08:07] LABS: Glucose Point of Care 117 mg/dl (65-105)
== END 2022-03-02 07:33 | disposition home or self-care (01) ==
LOC: ANHIMG 07:38
PROVIDERS: PCP Family Medicine Adolescent Medicine; Visit Provider Internal Medicine Medical Oncology
DX: Z03.89 Encounter for observation for other suspected diseases and conditions ruled out (principal); C50.412 Malignant neoplasm of upper-outer quadrant of left female breast; C50.411 Malignant neoplasm of upper-outer quadrant of right female breast; Z17.0 Estrogen receptor positive status [ER+]; R22.2 Localized swelling, mass and lump, trunk
CPT/HCPCS: 78815; A9552

== ENCOUNTER 2022-10-15 08:12 | Outpatient (CLI) | payer MEDICARE, SELFPAY ==
--- NOTE | ~2022-10-15 | CT_ITS ---
CT Scan of the Chest without Contrast: Clinical Indication: Left breast cancer Technique: Contiguous sections were acquired throughout the chest without intravenous contrast. Dose reduction technique was used on this scan by utilizing automated exposure control and iterative recon struction technique. The dose-length product (DLP) was 325.85 mGy-cm. COMPARISON: 11/25/2021 Findings: There is no evidence of any significant mediastinal, hilar or axillary lymphadenopathy. No aortic ane urysm. There are atherosclerotic calcifications of the aorta. Patient is status post probable CABG. There is no evidence of pleural or pericardial effusion. Stable right middle lobe scarring noted. Stable calcified large right lower lobe granuloma. No suspic ious pulmonary nodule seen. Images through the upper abdomen reveal small hiatal hernia. Patient is status post left mastectomy. Impression: No evidence for active malignancy or metastatic disease. Stable right middle lobe scarring. Status post left mastectomy. Small hiatal hernia. Reviewed, dictated and finalized at [facility]. ATIONAL INTERPRETER Impression: No evidence for active malignancy or metastatic disease. Stable right middle lobe scarring. Status post left mastectomy. Small hiatal hernia.
== END 2022-10-15 08:13 ==
PROVIDERS: PCP Family Medicine Adolescent Medicine; Visit Provider Internal Medicine Medical Oncology
DX: C50.412 Malignant neoplasm of upper-outer quadrant of left female breast (principal); Z17.0 Estrogen receptor positive status [ER+]; K44.9 Diaphragmatic hernia without obstruction or gangrene
CPT/HCPCS: 71250

== ENCOUNTER 2022-11-25 12:41 | Outpatient (CLI) | payer MEDICARE, SELFPAY ==
--- NOTE | ~2022-11-25 | XR_ITS ---
XR hip LT min 2V 11/25/2022 13:15 Indication: Left hip pain Procedure: 2 views left Comparison: No prior studies for comparison. Findings: There is mild osteoarthritis of the left hip. No fracture, subluxation or dislocation. Oste openia. Impression: 1: Mild osteoarthritis of the left hip. Reviewed, dictated and finalized at location L. Impression: 1: Mild osteoarthritis of the left hip.
== END 2022-11-25 12:42 ==
PROVIDERS: PCP Family Medicine Adolescent Medicine; Visit Provider Family Medicine Adolescent Medicine
DX: M16.12 Unilateral primary osteoarthritis, left hip (principal); M25.552 Pain in left hip
CPT/HCPCS: 73502

== ENCOUNTER 2022-12-28 14:43 | Outpatient (CLI) | payer MEDICARE, MEDICAID, SELFPAY ==
--- NOTE | ~2022-12-28 | US_ITS ---
EXAMINATION: US soft tissue chest INDICATION: Patient with palpable abnormality of the right breast status post bilateral mastectomy TECHNIQUE: Limited ultrasound of the right chest wall was performed in the area of clinical concern. COMPARISON: CT, 10/15/2022 FINDINGS: No specific sonographic correlate is identified for the reported palpable abnormality of co ncern of the right chest wall. There appear to be normal subcutaneous tissues with possible small luis unt of residual breast tissue. IMPRESSION: 1. No specific sonographic correlate is identified for the reported palpable abnormality of concern. Further evaluation at this time should be based on clinical assessment. Continued follow-up physical examination is recommended. Reviewed, dictated and finalized at location A. IMPRESSION: 1. No specific sonographic correlate is identified for the reported palpable ab normality of concern. Further evaluation at this time should be based on clinic al assessment. Continued follow-up physical examination is recommended.
== END 2022-12-28 14:44 | disposition home or self-care (01) ==
PROVIDERS: PCP Family Medicine Adolescent Medicine; Visit Provider Internal Medicine Medical Oncology
DX: C50.412 Malignant neoplasm of upper-outer quadrant of left female breast (principal); R22.2 Localized swelling, mass and lump, trunk; Z17.0 Estrogen receptor positive status [ER+]
CPT/HCPCS: 76604

== ENCOUNTER → 2023-01-12 09:21 | Outpatient (CLI) | payer MEDICARE, MEDICAID, SELFPAY ==
--- NOTE | ~2023-01-12 | CT_ITS ---
Clinical Indication: Right chest wall mass CT Scan of the Chest with Contrast: Technique: Contiguous sections were acquired throughout the chest after intravenous administration of 75 cc of Omnipaque 350. Dose reduction technique was used on this scan by utilizing automated exposu re control and iterative reconstruction technique. The dose-length product (DLP) was 258.47 mGy-cm. COMPARISON: 10/15/2022 Findings: There is no evidence of any significant mediastinal, hilar or axillary lymphadenopathy. There is no f illing defect in the pulmonary arterial tree to suggest pulmonary embolus. There is no evidence of ao rtic dissection or aneurysm. There is evidence of presumed prior bilateral mastectomy. There is mild skin thickening along the ant erior right chest, similar to prior exam. There is an 8 mm subcutaneous venous mass anteriorly in the midline (axial image 61). There is no evidence of pleural or pericardial effusion. Stable large calcified right lower lobe granuloma present. Stable scarring at the right middle lobe. Images through the upper abdomen reveal no abnormalities. Impression: Stable post mastectomy change with stable skin thickening on the right chest wall region. There is an 8 mm subcutaneous mass in the midline anteriorly (axial image 61), indeterminate. No evidence of pulmonary embolus, aortic dissection, or aortic aneurysm. No acute pulmonary abnormality. Reviewed, dictated and finalized at [facility]. Impression: Stable post mastectomy change with stable skin thickening on the right chest wa ll region. There is an 8 mm subcutaneous mass in the midline anteriorly (axial image 61), indeterminate. No evidence of pulmonary embolus, aortic dissection, or aortic aneurysm. No acute pulmonary abnormality.
[2023-01-12 09:48] LABS: Estimated Glomerular Filt Rate 33
== END ==
PROVIDERS: PCP Internal Medicine Medical Oncology; Visit Provider Internal Medicine Medical Oncology
DX: R22.2 Localized swelling, mass and lump, trunk (principal); Z98.890 Other specified postprocedural states
CPT/HCPCS: 71260; Q9967

== ENCOUNTER 2023-05-05 08:00 | Outpatient (CLI) | payer MEDICARE, MEDICAID, SELFPAY ==
--- NOTE | ~2023-05-05 | PE_ITS ---
EXAMINATION: PET skull to mid thigh DATE: 05/05/2023 09:58 INDICATION: Malignant neoplasm of the breast TECHNIQUE: Blood glucose level was 112 mg/dL. 9.005 mCi of 18-fluorodeoxyglucose (18-FDG) was adminis tered i.v. Low dose computed tomography (CT) images were acquired from the base of the brain to the p roximal thighs for attenuation correction and anatomic localization. Positron emission tomography (PE T) images were acquired in the same distribution beginning 63 minutes after injection. The dose-lengt h product (DLP) was 1084.50 mGy-cm. COMPARISON: 03/02/2022 FINDINGS: Head/neck: No abnormal FDG uptake is identified. FDG uptake in the extraocular muscles bilaterally is likely physiologic. There is minimal opacification of the maxillary sinuses. With Chest: No suspicious FDG uptake is identified. There are changes of bilateral mastectomy. A remnant E KG the ends in the right atrium. Cardiomegaly is noted. There is a persistent 4 mm soft tissue mass i n the midline chest which no longer demonstrates associated FDG uptake. There is mild atelectasis of the lungs. No pleural effusion or pneumothorax. A mildly enlarged right paratracheal lymph node does not demonstrate associated FDG uptake. There is chronic skin thickening of the right chest wall with interval decrease in associated FDG uptake. Abdomen/pelvis/proximal thighs: There is a small sliding hiatal hernia. No abnormal FDG uptake is esthela ntified. Physiologic FDG activity is present in the bowel and urinary tract. Changes of cholecystecto my are noted. Punctate calcifications in an otherwise normal spleen likely represent healed granuloma tous disease. The liver, pancreas, and adrenal glands are normal. There is mild atrophy of the right kidney compared to the left. IVC filter is noted. There is calcified atherosclerosis of the aorta and many of the other arteries. No pathologically enlarged abdominal or pelvic lymph nodes are identifie d. No free intraperitoneal gas or evidence of bowel obstruction. Colonic diverticulosis is present wi thout evidence of diverticulitis. Musculoskeletal: No suspicious FDG uptake is identified. IMPRESSION: 1. No evidence of recurrent or metastatic disease. Reviewed, dictated and finalized at location L.
[2023-05-05 08:20] LABS: Glucose Point of Care 112 mg/dl (65-105)
== END 2023-05-05 08:01 | disposition home or self-care (01) ==
PROVIDERS: PCP Family Medicine Adolescent Medicine; Visit Provider Internal Medicine Medical Oncology
DX: C50.412 Malignant neoplasm of upper-outer quadrant of left female breast (principal); Z17.0 Estrogen receptor positive status [ER+]
CPT/HCPCS: 78815; A9552

== ENCOUNTER 2024-03-01 14:09 | Inpatient (IN) | payer MEDICARE, SELFPAY ==
[2024-03-01] VITALS (11 sets, daily range): BP systolic 156–186; BP diastolic 75–129; PULSE 51–108; RESP 16–28; TEMP 36.7–36.8; O2SAT 96–100; BMI 34.7
--- NOTE | ~2024-03-01 | XR_ITS ---
XR chest 1V portable 03/01/2024 14:45 Indication: Shortness of breath and cough Procedure: AP portable chest Comparison: Comparison to multiple prior studies sequentially, with oldest reviewed study dated 10/27. Findings: Status post median sternotomy for CABG. Cardiomegaly. There is chronic atelectasis/scarring right mid thorax. Calcified granuloma right lower thorax. Status post median sternotomy. There is a pacemaker leads, position stable. No acute focal pneumonia, edema or effusion. No significant interva l change. Impression: 1: No acute cardiopulmonary disease. No significant change. Reviewed, dictated and finalized at location B. Impression: 1: No acute cardiopulmonary disease. No significant change.
--- NOTE | 2024-03-01 14:16 | ECG_ITS ---
Test Date: 2024-03-01 18:14:48 Measurements Intervals [place] Rate: 59 P: 0 [place]: 0 QRS: -6 QRSD: 108 T: 122 QT: 433 QTc: 429 Interpretive Statements ATRIAL FIBRILLATION WITH SLOW VENTRICULAR RESPONSE LEFT VENTRICULAR HYPERTROPHY WITH ST-T CHANGE INFERIOR INFARCT, AGE INDETERMINATE BORDERLINE ST-T WAVE ABNORMALITY- LATERAL LEADS ABNORMAL ECG No previous ECG available for comparison Electronically Signed On 03-01-2024 18:53:38 CDT by Jc Barbosa D.O.
[2024-03-01 15:09] LABS: Basophils Percent Auto 0.5 % (0.2-1.2); Eosinophils Absolute Auto 0.3 K/mm3 (0-0.3); Eosinophils Percent Auto 3.9 % (0-4.4); Hematocrit 36.6 % (37.0-47.0); Immature Granulocyte Absolute 0.02 K/mm3 (0.00-0.031); Immature Granulocyte Percent A 0.3 % (0-0.5); Lymphocytes Absolute Auto 1.77 K/mm3 (0.9-3.2); Lymphocytes Percent Auto 27.7 % (18.3-44.2); Mean Corpuscular HGB Conc 30.1 g/dl (32-36); Mean Corpuscular Hemoglobin 25.8 pg (26-34); Mean Corpuscular Volume 85.7 fl (80-100); Mean Platelet Volume 10.6 fl (7.4-10.4); Monocytes Absolute Auto 0.7 K/mm3 (0.1-0.6); Monocytes Percent Auto 10.2 % (2.6-8.5); Neutrophils Absolute Auto 3.7 K/mm3 (1.3-6.7); Neutrophils Percent Auto 57.4 % (45.5-73.1); Platelet Count Result 177 k/mm3 (150-375); Red Blood Count 4.27 M/mm3 (4.2-5.4); Red Cell Distribution Width 14.2 % (11.5-14.5); White Blood Count 6.4 K/mm3 (4.5-10.0)
[2024-03-01 15:19] LABS: Alanine Aminotransferase 95 U/L (6-35); Albumin Level 3.9 g/dL (3.5-5.1); Alkaline Phosphatase 107 U/L (38-126); Anion Gap 12 mmol/L (4-12); Aspartate Amino Transferase 66 U/L (14-36); Bilirubin,Total 0.7 mg/dL (0.2-1.3); Blood Urea Nitrogen 29 mg/dL (7-17); Carbon Dioxide 20 mmol/L (22-30); Chloride 108 mmol/L (98-107); Estimated CRCL calculation 26 ml/min; Estimated Glomerular Filt Rate 33; Glucose 103 mg/dL (65-110); Potassium 3.7 mmol/L (3.4-5.0); Sodium 140 mmol/L (137-145)
--- NOTE | 2024-03-01 15:54 | ED.GENADULT ---
HPI - General Adult General Chief complaint: Shortness of Breath/Dyspnea Stated complaint: chest pain Time Seen by Provider: 03/01/24 15:14 Source: patient, family and EMS Mode of arrival: EMS Limitations: no limitations History of Present Illness HPI narrative: 83 YEARS OLD WHITE FEMALE CAME TO THE ED COMPLAINING OF RIGHT JAW PAIN AND RIGHT-SIDED NECK PAIN FOR THE LAST 3 DAYS, INTERMITTENT, WORSE WITH MOVEMENT AND ACTIVITIES, BETTER AT REST. PATIENT REPORT HAVING SIMILAR SYMPTOMS 10 YEARS AGO SECONDARY TO ACUTE MRI. PATIENT REPORTS ASSOCIATED SHORTNESS OF BREATH FOR THE LAST 3 DAYS. PATIENT DENIES ANY CHEST PAIN OR BACK PAIN. Related Data Home Medications Medication Instructions Recorded Confirmed cholecalciferol (vitamin D3) 25 25 mcg PO QAM 12/15/20 03/01/24 mcg (1,000 unit) capsule aspirin 81 mg tablet,delayed 81 mg PO DAILY 12/16/21 03/01/24 release (Adult Aspirin Regimen) evolocumab 420 mg/3.5 mL 1 ea subcut MONTHLY 01/22/22 03/01/24 subcutaneous wearable injector (Repatha Pushtronex) bisoprolol fumarate 5 mg tablet 2.5 mg PO DAILY 03/01/24 03/01/24 celecoxib 200 mg capsule 200 mg PO Q12H 03/01/24 03/01/24 omeprazole 20 mg capsule,delayed 20 mg PO DAILY Acid Reflux 03/01/24 03/01/24 release potassium chloride 20 mEq 20 meq PO TIDWM 03/01/24 03/01/24 tablet,extended release(part/cryst) (Klor-Con M) Allergies Allergy/AdvReac Type Severity Reaction Status Date / Time erythromycin base Allergy Severe Itching Verified 03/01/24 15:10 amoxicillin Allergy Unknown Itching Verified 03/01/24 15:10 clavulanic acid Allergy Unknown Itching Verified 03/01/24 15:10 Penicillins Allergy Unknown Itching Verified 03/01/24 15:10 adhesive AdvReac Mild Itching Verified 03/01/24 15:10 codeine AdvReac Unknown Nausea and Verified 03/01/24 15:10 Vomiting lisinopril AdvReac Unknown Headache Verified 03/01/24 15:10 and dizziness, no angioedema losartan AdvReac Unknown Dizziness Verified 03/01/24 19:03 metronidazole AdvReac Unknown Nausea and Verified 03/01/24 15:10 Vomiting, ITCHING morphine AdvReac Unknown Nausea and Verified 03/01/24 15:10 Vomiting Iuajpng-TLT-GdW Reductase AdvReac Unknown Joint Pain Verified 03/01/24 15:10 Inhibitor [Vonnmtm-Tof-Pgz Reductase Inhibitor] Review of Systems Review of Systems: All systems reviewed & are unremarkable except as noted in HPI and below PMFSH Past Medical History Medical History Combined congestive systolic and diastolic heart failure Echocardiogram on 12/17/2020 showed severe global hypokinesis, grade 2 diastolic dysfunction, with a calculated EF of 25%, and moderate pulmonary hypertension. Coronary artery disease involving [place] heart History of left breast cancer Status post mastectomy and chemoradiation. History of [place] (myocardial infarction) (~2013) Hx of deep venous thrombosis Hypothyroidism Ischemic cardiomyopathy Status post ICD insertion and subsequent generator explant. Low serum IgG2 subclass level Nonsustained ventricular tachycardia Obstructive sleep apnea On CPAP with nasal pillows. Persistent asthma without complication Pulmonary hypertension Raynauds phenomenon Wound dehiscence Surgical History Surgical History H/O mastectomy right mastectomy w/right axillary sentinel lymph node biopsy 02/04/22 History of bilateral knee arthroplasty History of cataract extraction History of cholecystectomy History of coronary artery bypass graft (2013) History of left mastectomy (2011) History of partial colectomy (2013) History of right mastectomy (01/2022) History of sinus surgery (2015) History of thyroidectomy Family History Family History Mother Family history of osteoarthritis Father Heart disease Son Muscular dystrophy Sibling Acute myoc
--- NOTE | 2024-03-01 17:21 | PC.NURSE ---
care and report given to OSWALDO Woods. all questions answered.
--- NOTE | 2024-03-01 17:23 | PC.NURSE ---
Pt already had 324mg ASA en route to ER today via ems. made aware.
[2024-03-01 17:43] LABS: Troponin I 0.013 ng/mL (0.000-0.034)
[2024-03-01 18:50] LABS: Troponin I 0.016 ng/mL (0.000-0.034)
--- NOTE | 2024-03-01 18:53 | ADMGEN ---
This patient, Jacqueline Duenas, was admitted to IMU Room 211-01. Patient/family oriented to hospital policies and general routines including ID bracelet, bed and alarms, visiting hours, pain management, procedures, bathroom and other care routines, personal items, smoking policy, room service/diet, and visiting hours. Information on how to activate the Rapid Response Team has been discussed. Patient/Family are encouraged to report perceived risks to care and to ask questions if they do not understand what they are told or what they should do.
--- NOTE | 2024-03-01 21:00 | ECG_ITS ---
Test Date: 2024-03-01 21:12:42 Measurements Intervals [place] Rate: 53 P: 77 [place]: 250 QRS: -3 QRSD: 108 T: 126 QT: 440 QTc: 415 Interpretive Statements SINUS BRADYCARDIA WITH FIRST DEGREE AV BLOCK VENTRICULAR PREMATURE COMPLEX LEFT VENTRICULAR HYPERTROPHY WITH ST-T CHANGE INFERIOR INFARCT, AGE INDETERMINATE BORDERLINE ST-T WAVE ABNORMALITY- LATERAL LEADS ABNORMAL ECG Compared to ECG 03/01/2024 18:14:48 SINUS RHYTHM NOW PRESENT Electronically Signed On 03-01-2024 21:19:32 CDT by Jc Barbosa D.O.
--- NOTE | 2024-03-01 21:26 | PM.IMHP ---
H&P: HPI History of Present Illness Date/Time: 03/01/24 21:26 Chief Complaint: Jaw Pain Narrative: 83-year-old female presents here with jaw pain with PMH of quadruple bypass, AFib, ROULA, pacemaker in place, breast cancer (s/p mastectomy and chemo radiation), pulmonary hypertension, CHF, CAD, DVT, MN, and asthma. The patient presents here via EMS from a local urgent care and [facility] for further evaluation of jaw pain with exertion for the past 2-3 days. Did have one episode while at rest before bed. She describes the pain as right sided, achy, radiating back towards her ear, intermittent, aggravated by activity (walking), and alleviated by resting. No associated chest pain, nausea, diaphoresis, fatigue, palpations, excessive fatigue, or dizziness. Endorsing accompanying shortness of breath with same alleviating/aggravating factors as the chest pain. The patient has a previous history of MN and her presenting symptoms were jaw pain on the right side in 2011 (unsure on exact year), treated at [facility]. During that same visit she had the MN she underwent a quadruple bypass. Follows with Luiz OTTO at [facility]/[place] for her cardiac care. Initial VS at presentation: 98.3? F, HR 52, RR 21, 165/78, and 98% on RA. ED workup showed: No leukocytosis, hemoglobin 11.0, creatinine 1.5 and GFR 33 (previously 1.43 and GFR 37 on 08/18/2023), mild bump in LFTs, and initial troponin 0.013. CXR showed no acute cardiopulmonary disease, did show chronic findings without significant change. Initial EKG showed AFib with slow ventricular response, rate 59. Review of Systems Review of Systems: All systems reviewed & are unremarkable except as noted in HPI and below [facility] Past Medical History Medical History (Updated 03/01/24 @ 23:03 by Christie Hunter, REHABILITATION CENTER MANAGER) Combined congestive systolic and diastolic heart failure Echocardiogram on 12/17/2020 showed severe global hypokinesis, grade 2 diastolic dysfunction, with a calculated EF of 25%, and moderate pulmonary hypertension. Coronary artery disease involving [place] heart History of left breast cancer Status post mastectomy and chemoradiation. History of [place] (myocardial infarction) (~2013) Hx of deep venous thrombosis Hypothyroidism Ischemic cardiomyopathy Status post ICD insertion and subsequent generator explant. Low serum IgG2 subclass level Nonsustained ventricular tachycardia Obstructive sleep apnea On CPAP with nasal pillows. Persistent asthma without complication Pulmonary hypertension Raynauds phenomenon Wound dehiscence Surgical History Surgical History H/O mastectomy right mastectomy w/right axillary sentinel lymph node biopsy 02/04/22 History of bilateral knee arthroplasty History of cataract extraction History of cholecystectomy History of coronary artery bypass graft (2013) History of left mastectomy (2011) History of partial colectomy (2013) History of right mastectomy (01/2022) History of sinus surgery (2015) History of thyroidectomy Family History Family History Mother Family history of osteoarthritis Father Heart disease Son Muscular dystrophy Sibling Acute myocardial infarction Other Breast cancer Social History Social History Social History: Surrogate decision maker: Ирина Duensa and Adela Nielsen, daughters. Code status: Full code. Smoking packs per day: 0.5 Smoking cigarettes per day: 10.0 Years smoked: 25 Smoking pack-years: 12.50 Smoking status: Former smoker Tobacco type: cigarettes Second hand tobacco smoke exposure: Yes Smoking end date: 02/12/85 Additional smoking assessment comments: quit 50 years ago Alcohol intake: never Substance use: never Substance use type: does not use Do You Feel Safe in your Home?: Yes
[2024-03-01 23:03] LABS: Troponin I 0.025 ng/mL (0.000-0.034)
[2024-03-02] VITALS (21 sets, daily range): BP systolic 104–157; BP diastolic 53–88; PULSE 42–100; RESP 16–20; TEMP 35.9–36.7; O2SAT 95–100
--- NOTE | 2024-03-02 | ECHO_ITS ---
Patient Info Name: Jacqueline Duenas Age: 83 years : 1940 Gender: Female Ht: 62 in Wt: 189 lbs BSA: 1.98 m2 HR: 60 bpm BP: 152 / 73 mmHg Heart Rhythm: Sinus Rhythm Technical Quality: Poor Exam Date: 03/02/2024 3:15 PM Exam Location: Echo Lab Patient Status: Inpatient Admit Date: 03/01/2024 Staff Ordering Physician: Cesar Lezama MD Membership Correspondent: Felicity Stone RDCS Attending Provider: Domingo Junior MD Referring Physician: Teja MCCLAIN; Exam Type: CA echo dop color flow w con Study Info Indications - exertional dyspnea , ischimic cardiomyopathy Complete two-dimensional, color flow and Doppler transthoracic echocardiogram is performed with contrast to opacify the left ventricle and to improve the deliniation of the left ventricle endocardial borders. Reason for Poor Study: poor echocardiographic windows Summary 1. Left ventricular chamber dimension is moderately enlarged. 2. Left ventricular systolic function is severely reduced, estimated at 30-35%. 3. There is mildly increased left ventricular wall thickness. 4. The left ventricular diastolic function is abnormal. 5. The apical septum, apical inferior wall, apical cap, mid inferior wall, and mid inferoseptal are akinetic. 6. The anterior wall, anteroseptal wall, basal inferior wall, and basal inferoseptal are hypokinetic. 7. The basal inferolateral wall, and mid inferolateral wall are not visualized. 8. Left atrial chamber dimension is severely enlarged. 9. Right atrial chamber dimension is moderately enlarged. 10. There is mild aortic valve stenosis with a peak velocity of 134.46 cm/s, mean gradient of 5 mmHg, and aortic valve area of 1.71 cm2. 11. There is mild aortic valve regurgitation. 12. There is mild aortic valve calcification. 13. The mitral valve annulus is severely calcified. 14. There is mild mitral valve stenosis. 15. There is moderate tricuspid valve regurgitation. 16. Moderate pulmonary hypertension, estimated pulmonary arterial systolic pressure is 46 mmHg. 17. There is mild pulmonic regurgitation. Left Ventricle Left ventricular chamber dimension is moderately enlarged. Left ventricular systolic function is severely reduced, estimated at 30-35%. There is mildly increased left ventricular wall thickness. The left ventricular diastolic function is abnormal. The apical septum, apical inferior wall, apical cap, mid inferior wall, and mid inferoseptal are akinetic. The anterior wall, anteroseptal wall, basal inferior wall, and basal inferoseptal are hypokinetic. The basal inferolateral wall, and mid inferolateral wall are not visualized. All other cook appear normal. Right Ventricle Right ventricular chamber dimension is normal. Right ventricular systolic function is normal. Linear artifact in right ventricle suggestive of catheter(s), pacemaker lead(s), or ICD lead(s). Left Atria Left atrial chamber dimension is severely enlarged. Right Atria Right atrial chamber dimension is moderately enlarged. Atrial Septum Intact interatrial septum visualized by color flow imaging. Aortic Valve The aortic valve is trileaflet. There is mild aortic valve stenosis with a peak velocity of 134.46 cm/s, mean gradient of 5 mmHg, and aortic valve area of 1.71 cm2. There is mild aortic valve regurgitation. There is mild aortic valve calcification. Pulmonic Valve The pulmonic valve is normal. There is no pulmonic valve stenosis. There is mild pulmonic regurgitation. Mitral Valve There is mild mitral valve stenosis. There is trace mitral valve regurgitation. The mitral ludivina
[2024-03-02] MEDS: CELECOXIB 200 MG CAPSULE PO ×3 (00:19→20:22)
--- NOTE | 2024-03-02 02:15 | PC.NURSE ---
Pt HR dropping lower than baseline intermittently to the 30s. Pt asymptomatic. Pt uses a home CPAP machine. Continuous pulse oximetry applied. Pt SPO 95-98 with CPAP. Pt A&O x 3. Dr. Hodge made aware.
[2024-03-02] MEDS: LEVOTHYROXINE SODIUM 125 MCG TABLET PO (07:22)
[2024-03-02] MEDS: PANTOPRAZOLE 40 MG TABLET PO (08:19)
[2024-03-02] MEDS: FUROSEMIDE 40 MG TABLET PO (08:19)
[2024-03-02] MEDS: POTASSIUM CHLORIDE 20 MEQ ER TABLET PO ×3 (08:20→18:23)
[2024-03-02] MEDS: allopurinoL 100 MG TABLET 200 MG PO (08:20)
[2024-03-02] MEDS: CHOLECALCIFEROL 1,000 UNITS TABLET 1000 UNITS PO (08:20)
[2024-03-02] MEDS: bisoproloL fumarate 2.5 MG TABLET PO (08:20)
--- NOTE | 2024-03-02 11:04 | PC.NURSE ---
pt states if the dr has not come in to see her by 1300 she is going to have her niece bring her food whether they like it or not, pt reassured that we will get the dr in to see her as soon as is possible, given pads, pt sitting up at bedside at this time
--- NOTE | 2024-03-02 11:46 | ECG_ITS ---
Test Date: 2024-03-02 11:59:29 Measurements Intervals [place] Rate: 54 P: 0 MN: 0 QRS: -10 QRSD: 114 T: 134 QT: 464 QTc: 440 Interpretive Statements SINUS BRADYCARDIA WITH FIRST DEGREE AV BLOCK SUPRAVENTRICULAR BIGEMINY INTRAVENTRICULAR CONDUCTION DELAY DELAYED PRECORDIAL R/S TRANSITION LEFT VENTRICULAR HYPERTROPHY WITH ST-T CHANGE INFERIOR INFARCT, AGE INDETERMINATE BORDERLINE ST-T WAVE ABNORMALITY- LATERAL LEADS ABNORMAL ECG Compared to ECG 03/01/2024 21:12:42 NO SIGNIFICANT CHANGE Electronically Signed On 03-02-2024 12:43:47 CDT by Jc Barbosa D.O.
--- NOTE | 2024-03-02 12:09 | PC.NURSE ---
pacer pads applied as precaution d/t hr samira into 30s
[2024-03-02] MEDS: ASPIRIN 81 MG ENTERIC TABLET PO (12:42)
[2024-03-02] MEDS: CLOPIDOGREL BISULFATE 75 MG TABLET PO (12:42)
--- NOTE | 2024-03-02 13:36 | PC.NURSE ---
pt is upset that she has not seen the plant operator/shift supervisor yet and is still npo, reassured pt and her neice that the plant operator/shift supervisor will be up to see her as soon as he is able and that he is doing procedures at this time, will contact hospitalist to see if he will speak with pt
--- NOTE | 2024-03-02 13:50 | PC.NURSE ---
dr gaxiola has been in to speak with pt, agrees to HH diet but has made pt aware that she may be here until tuesday if cardiology want to do a procedure, daughter alia is in the room also
--- NOTE | 2024-03-02 14:15 | PC.NURSE ---
daughter alia has spoken with pt after exited, pt agrees to wait until after cardiology has seen her to eat
--- NOTE | 2024-03-02 14:50 | PM.CNCAR ---
Assessment and Plan Assessment and plan (1) Coronary artery disease: Code(s): I25.10 - Atherosclerotic heart disease of [place] coronary artery without angina pectoris Status: Acute (2) Jaw pain: Code(s): R68.84 - Jaw pain Status: Acute Plan Will start/advanced medical anti ischemic therapy in this elderly lady with multivessel coronary disease, previous surgical revascularization 10 years ago and also known to have breast cancer current status of that is unclear at the time of this dictation. We will have to try to treat her angina medically. If this does not succeed and aggressive/invasive evaluation becomes necessary this ideally should not performed at this hospital as she is graft dependent and has a moderately low ejection fraction by most recent echo. I am going to start clopidogrel and isosorbide in addition to her beta-lilli. I will obtain a new echocardiogram to assess this severity of her LV systolic dysfunction. Hopefully her symptoms can be improved with medical therapy and we would consider discharge in the next 24-48 hours if we can stabilize this. She will need short interval follow-up with my partner to assess her response to medical therapy and consider or at least discuss the option of follow-up angiography if she remains symptomatic. Cesar Lezama MD [facility] History of Present Illness History of Present Illness Consult date/time: 03/02/24 14:50 Reason For Visit: chest pain Narrative: This is an 83-year-old lady I am seeing today at the request of the hospitalist because of chest pain. The patient is known to have coronary disease and follows with my partner, Dr. Draper but I do not believe I have per previously involved in her care. She has a history of coronary disease dating back to 2013 when she says she presented to this hospital with acute coronary syndrome. She describes being transferred to [facility] for evaluation and at which time surgical revascularization was recommended. The charts referred to a 4 vessel bypass operation having been done at that time. I do not have the details of her operative note at the time of this dictation. She has been followed in our since then sporadically and she states she has last been seen in the fall of 2022 at which time she was felt to be relatively stable. In recent years she does have according to the notes a noted decline in her left ventricular systolic function with an ejection fraction in the range of 20-25%. During the most recent office note plans to treat her with Entresto were noted but that is not on her medication list at this time. Her next appointment with a in our office is not until this fall. She was doing relatively well with all of this until several days ago which he noticed the onset of exertional pain in the right side of her neck and into the jaw. The symptoms she thinks are similar to the ischemic symptoms that she had 10 years ago prior to her coronary bypass. She is not having any orthopnea PND or edema she denies any episodes of syncope. Patient is H&P says that when she came here she was in atrial fibrillation. I have reviewed the ECGs and I do not believe that is the case she has sinus rhythm with occasionally frequent APCs but I do not see any evidence of atrial fib. In this setting I am seeing her in consultation today. Her other significant comorbidity is breast cancer. She follows with oncology for many years. She had a left mastectomy done for a malignancy in the remote past. 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 She has been found to have a mass creating some concern in the right breast a during recent exam. She says the evaluation of that is being initiated by her oncologist. She has reports to have some imaging scheduled as an outpatient in the near future. I do not have any specific details regarding that. Her electrocardiogram shows sinus rhythm
[2024-03-02] MEDS: PERFLUTREN LIPID MICROSPHERES 1.5 ML VIAL DILUTED TO 10 ML TOTAL VOLUME IV PUSH (15:50)
--- NOTE | 2024-03-02 16:11 | IVDEFINITY ---
Prior to administration of IV Definity the patient was educated on the risks and benefits of the imaging enhancing agent including potential adverse side effects. The patient verbalized understanding. Allergies were verified. No exclusion criteria were identified and at least one of the following inclusion criteria were met: 1) physician request, 2) patient technically difficult to image (per the [place] [employer]chocardi[employer] guidelines of two or more segments not discernable within the apical view), or 3) questionable left ventricular function. ?
[2024-03-02] MEDS: ISOSORBIDE MONONITRATE 60 MG TAB.ER.24H PO (18:23)
--- NOTE | 2024-03-02 18:32 | PM.IMPN ---
Progress Note: A&P Assessment and Plan (1) Coronary artery disease: Code(s): I25.10 - Atherosclerotic heart disease of [place] coronary artery without angina pectoris Status: Acute (2) Jaw pain: Code(s): R68.84 - Jaw pain Status: Acute Plan Troponins negative. Neurology consultation appreciated. SCDs, walk in [place] 3 times a day. Continue monitoring on telemetry. Full code Subjective Date/time seen: 03/02/24 18:32 Interval history: Major acute overnight events. Patient seen in the room with the family member name Juliana. Review of Systems Review of Systems: All systems reviewed & are unremarkable except as noted in HPI and below (Subjective) Exam Const: General: comfortable and no acute distress Eyes: Pupils: Equal, round and reactive pupils present Neck: Neck: supple Resp: Effort & Inspection: normal respiratory effort Auscultation: clear to auscultation bilaterally Cardio: Rate: regular rate Rhythm: regular rhythm GI: GI Palp: Yes Soft to palpation Extrem: General: no edema Objective Data Vital Signs Vital Signs: Vital Signs - 24 hr 03/01/24 18:44 03/01/24 19:43 03/01/24 20:00 Temperature 98.0 F 98.1 F Pulse Rate 59 L 108 H Respiratory Rate 16 20 Blood Pressure 156/106 H 160/129 H Pulse Oximetry 100 98 Oxygen Delivery Room Air 03/01/24 23:35 03/01/24 20:00 03/01/24 22:00 Temperature Pulse Rate 51 L 72 52 L Respiratory Rate Blood Pressure Pulse Oximetry Oxygen Delivery CPAP 03/02/24 00:00 03/02/24 00:00 03/02/24 00:00 Temperature 96.7 F L Pulse Rate 100 59 L Respiratory Rate 20 Blood Pressure 104/76 Pulse Oximetry 98 Oxygen Delivery CPAP 03/02/24 02:00 03/02/24 04:00 03/02/24 03:58 Temperature 97.8 F Pulse Rate 42 L 47 L Respiratory Rate 18 Blood Pressure 141/53 H Pulse Oximetry 97 97 Oxygen Delivery CPAP 03/02/24 04:00 03/02/24 06:00 03/02/24 07:36 Temperature 98.0 F Pulse Rate 48 L 45 L 63 Respiratory Rate 18 Blood Pressure 122/77 Pulse Oximetry 100 Oxygen Delivery 03/02/24 08:20 03/02/24 08:00 03/02/24 09:26 Temperature Pulse Rate 63 59 L Respiratory Rate Blood Pressure Pulse Oximetry 98 Oxygen Delivery Room Air 03/02/24 10:00 03/02/24 08:00 03/02/24 11:43 Temperature 97.6 F Pulse Rate 75 48 L Respiratory Rate 18 Blood Pressure 152/73 H Pulse Oximetry 95 98 Oxygen Delivery CPAP 03/02/24 11:49 03/02/24 12:00 03/02/24 14:00 Temperature Pulse Rate 50 L 43 L 71 Respiratory Rate Blood Pressure Pulse Oximetry Oxygen Delivery 03/02/24 12:00 03/02/24 16:00 03/02/24 16:00 Temperature 98.0 F Pulse Rate 57 L 64 Respiratory Rate 16 Blood Pressure 157/88 H Pulse Oximetry 100 99 Oxygen Delivery Room Air 03/02/24 16:00 03/02/24 18:00 Temperature Pulse Rate 88 Respiratory Rate Blood Pressure Pulse Oximetry 100 Oxygen Delivery Room Air Intake/Output Intake/Output: Intake & Output 02/28/24 02/29/24 03/01/24 03/02/24 23:59 23:59 23:59 23:59 Intake Total 790 Output Total 2100 Balance -1310 Meds/Results Medications: Active Medications Generic Name Dose Route Start Last Admin Trade Name Freq PRN Reason Stop Dose Admin Acetaminophen 650 mg 03/01/24 17:33 Acetaminophen 325 Mg Tablet PO Q4H PRN Mild Pain (1-3) or Fever Albuterol 2 puff 03/01/24 22:59 Albuterol Sulfate (*Sp) Aerosol 1 Puff INHALATION Q6HRT PRN Shortness Of Breath Or Wheezing Allopurinol 200 mg 03/02/24 08:00 03/02/24 08:20 Allopurinol 100 Mg Tablet PO 200 mg DAILY@0800 DIANA Administration Aspirin 81 mg 03/02/24 09:00 03/02/24 12:42 Aspirin 81 Mg Enteric Tablet PO 81 mg DAILY DIANA Administration Bisoprolol Fumarate 2.5 mg 03/02/24 09:00 03/02/24 08:20 Bisoprolol Fumarate 2.5 Mg Tablet PO 2.5 mg DAILY DIANA Administration Celecoxib
[2024-03-02] MEDS: MONTELUKAST SODIUM 10 MG TABLET PO (20:23)
[2024-03-03] VITALS (18 sets, daily range): BP systolic 115–140; BP diastolic 48–74; PULSE 38–74; RESP 18–20; TEMP 36.4–36.8; O2SAT 93–100
--- NOTE | 2024-03-03 02:49 | ECG_ITS ---
Test Date: 2024-03-03 02:54:46 Measurements Intervals [place] Rate: 41 P: 101 DC: 277 QRS: 0 QRSD: 102 T: 115 QT: 517 QTc: 430 Interpretive Statements SINUS OR ECTOPIC ATRIAL BRADYCARDIARHYTHM INFERIOR INFARCT, AGE INDETERMINATE ST-T WAVE ABNORMALITY IN LAT/HIGH LAT LEADS- CONSIDER ISCHEMIA ABNORMAL ECG Compared to ECG 03/02/2024 11:59:29 HEART RATE HAS DECREASED ST-T WAVE ABNORMALITY NOW PRESENT Electronically Signed On 03-03-2024 09:04:50 CDT by Jc Barbosa D.O.
--- NOTE | 2024-03-03 04:00 | PC.NURSE ---
Pt angry at time regarding IV tourniquet placement and light tapping. Pt stated that she would slap the director of cardiac cath lab.
[2024-03-03 05:15] LABS: Hematocrit 35.4 % (37.0-47.0); Hemoglobin 10.6 g/dL (12.0-15.0); Mean Corpuscular HGB Conc 29.9 g/dl (32-36); Mean Corpuscular Hemoglobin 25.4 pg (26-34); Mean Corpuscular Volume 84.7 fl (80-100); Mean Platelet Volume 11.3 fl (7.4-10.4); Platelet Count Result 190 k/mm3 (150-375); Red Blood Count 4.18 M/mm3 (4.2-5.4); Red Cell Distribution Width 14.2 % (11.5-14.5)
[2024-03-03] MEDS: LEVOTHYROXINE SODIUM 125 MCG TABLET PO (07:12)
[2024-03-03 08:11] LABS: Alanine Aminotransferase 66 U/L (6-35); Albumin Level 3.8 g/dL (3.5-5.1); Alkaline Phosphatase 106 U/L (38-126); Anion Gap 12 mmol/L (4-12); Aspartate Amino Transferase 40 U/L (14-36); Bilirubin,Total 1.1 mg/dL (0.2-1.3); Blood Urea Nitrogen 29 mg/dL (7-17); Calcium 9.1 mg/dL (8.4-10.2); Carbon Dioxide 23 mmol/L (22-30); Chloride 106 mmol/L (98-107); Estimated CRCL calculation 28 ml/min; Estimated Glomerular Filt Rate 36; Glucose 114 mg/dL (65-110); Sodium 141 mmol/L (137-145)
[2024-03-03] MEDS: POTASSIUM CHLORIDE 20 MEQ ER TABLET PO ×3 (08:24→19:12)
[2024-03-03] MEDS: CLOPIDOGREL BISULFATE 75 MG TABLET PO (08:24)
[2024-03-03] MEDS: allopurinoL 100 MG TABLET 200 MG PO (08:24)
[2024-03-03] MEDS: CELECOXIB 200 MG CAPSULE PO (08:25)
[2024-03-03] MEDS: CHOLECALCIFEROL 1,000 UNITS TABLET 1000 UNITS PO (08:25)
[2024-03-03] MEDS: FUROSEMIDE 40 MG TABLET PO (08:26)
[2024-03-03] MEDS: ASPIRIN 81 MG ENTERIC TABLET PO (08:27)
[2024-03-03] MEDS: PANTOPRAZOLE 40 MG TABLET PO (08:28)
[2024-03-03] MEDS: ISOSORBIDE MONONITRATE 60 MG TAB.ER.24H PO (08:34)
--- NOTE | 2024-03-03 09:25 | PM.PNCARD ---
Progress Note: A&P Assessment and Plan (1) Coronary artery disease: Code(s): I25.10 - Atherosclerotic heart disease of [place] coronary artery without angina pectoris Status: Acute Assessment and Plan: Continue aspirin, clopidogrel, isosorbide, bisoprolol. Await echo results. (2) Jaw pain: Code(s): R68.84 - Jaw pain Status: Acute Assessment and Plan: Resolved (3) Malignant neoplasm of breast in remission: Code(s): C50.919 - Malignant neoplasm of unspecified site of unspecified female breast Status: Acute (4) Combined congestive systolic and diastolic heart failure: Code(s): I50.40 - Unspecified combined systolic (congestive) and diastolic (congestive) heart failure Status: Chronic Assessment and Plan: Continue furosemide and above meds. Up titrate regimen as need be or as BP will allow (5) Cardiomyopathy: Code(s): I42.9 - Cardiomyopathy, unspecified Status: Acute Assessment and Plan: As above Plan Will start/advanced medical anti ischemic therapy in this elderly lady with multivessel coronary disease, previous surgical revascularization 10 years ago and also known to have breast cancer current status of that is unclear at the time of this dictation. We will have to try to treat her angina medically. If this does not succeed and aggressive/invasive evaluation becomes necessary this ideally should not performed at this hospital as she is graft dependent and has a moderately low ejection fraction by most recent echo. Subjective Date/time seen: 03/03/24 09:25 Interval history: This is an 83-year-old lady admitted because of chest pain. The patient is known to have coronary disease and follows with my partner, Dr. Draper but I do not believe I have per previously involved in her care. She has a history of coronary disease dating back to 2013 when she says she presented to this hospital with acute coronary syndrome. She describes being transferred to [facility] for evaluation and at which time surgical revascularization was recommended. The charts referred to a 4 vessel bypass operation having been done at that time. I do not have the details of her operative note at the time of this dictation. She has been followed in our since then sporadically and she states she has last been seen in the fall of 2022 at which time she was felt to be relatively stable. In recent years she does have according to the notes a noted decline in her left ventricular systolic function with an ejection fraction in the range of 20-25%. Date of service 03/03/2024: Denies any chest pain. Has some shortness of breath. No significant swelling Review of Systems Constitutional: Constitutional: Reports lethargy Eyes: Eyes: Reports no additional eye complaints ENT: Reports system reviewed and no additional complaints, except as documented Cardiovascular: Cardiovascular: Reports as per HPI Respiratory: Respiratory: Reports no additional respiratory complaints Gastrointestinal: Gastrointestinal: Reports no additional gastrointestinal complaints Musculoskeletal: Musculoskeletal: Reports no additional musculoskeletal complaints Integumentary/Breasts: Skin/Breast: Reports system reviewed and no additional complaints, except as docu Neurologic: Reports system reviewed and no additional complaints, except as documented Endocrine: Endocrine: Reports no additional endocrine complaints Hematologic/Lymphatic: Hematologic/Lymphatic: Reports no additional hematologic/lymphatic complaints Allergic/Immunologic: Allergic/Immunologic: Reports no additional allergic/immunologic complaints Exam Const: General: comfortable and no acute distress Other: Pleasant elderly lady not in distress at bedrest HENMT: Mouth: Yes moist mucous membranes Eyes: Sclera: sclerae normal Neck: Neck: supple and no JVD Resp: Effort & Inspection: normal respiratory effort
--- NOTE | 2024-03-03 13:00 | PM.IMPN ---
Progress Note: A&P Assessment and Plan (1) Coronary artery disease: Code(s): I25.10 - Atherosclerotic heart disease of [place] coronary artery without angina pectoris Status: Acute (2) Jaw pain: Code(s): R68.84 - Jaw pain Status: Acute Plan HPI via Christie Dhaliwaler [employer]PERATIONS MANAGER: 83-year-old female presents here with jaw pain with PMH of quadruple bypass, ROULA, pacemaker in place, breast cancer (s/p mastectomy and chemo radiation), pulmonary hypertension, CHF, CAD, DVT, MA, and asthma. The patient presents here via EMS from a local urgent care and [facility] for further evaluation of jaw pain with exertion for the past 2-3 days. Did have one episode while at rest before bed. She describes the pain as right sided, achy, radiating back towards her ear, intermittent, aggravated by activity (walking), and alleviated by resting. No associated chest pain, nausea, diaphoresis, fatigue, palpations, excessive fatigue, or dizziness. Endorsing accompanying shortness of breath with same alleviating/aggravating factors as the chest pain. The patient has a previous history of MA and her presenting symptoms were jaw pain on the right side in 2011 (unsure on exact year), treated at [facility]. During that same visit she had the MA she underwent a quadruple bypass. Follows with Luiz OTTO at [facility] for her cardiac care. Initial VS at presentation: 98.3? F, HR 52, RR 21, 165/78, and 98% on RA. ED workup showed: No leukocytosis, hemoglobin 11.0, creatinine 1.5 and GFR 33 (previously 1.43 and GFR 37 on 08/18/2023), mild bump in LFTs, and initial troponin 0.013. CXR showed no acute cardiopulmonary disease, did show chronic findings without significant change. Initial EKG showed AFib with slow ventricular response, rate 59. ----- Patient denies symptom at this time. Pending results of surface echocardiogram repeat. Discontinue celecoxib as it carries a significant cardiovascular risk. If she has ongoing pain will have to find substitute. Has sinus bradycardia, continue telemetry monitoring. Continue aspirin, Plavix, bisoprolol, isosorbide. Continue furosemide for combined systolic-diastolic heart failure. Currently euvolemic. Monitoring blood pressure, institute further medical therapy for cardiomyopathy as allowed. Full code SCDs. Walking all 3 times daily Subjective Date/time seen: 03/03/24 13:00 Interval history: Denies jaw pain, denies shortness of breath. Denies fever. No major acute overnight events. Otherwise patient quite upset about the lab draws and being poked. Review of Systems Review of Systems: All systems reviewed & are unremarkable except as noted in HPI and below (Subjective) Exam Const: General: comfortable and no acute distress Eyes: Pupils: Equal, round and reactive pupils present Neck: Neck: supple Resp: Effort & Inspection: normal respiratory effort Auscultation: clear to auscultation bilaterally Cardio: Rate: regular rate Rhythm: regular rhythm GI: GI Palp: Yes Soft to palpation Extrem: General: no edema Objective Data Vital Signs Vital Signs: Vital Signs - 24 hr 03/02/24 14:00 03/02/24 16:00 03/02/24 16:00 Temperature 98.0 F Pulse Rate 71 57 L 64 Respiratory Rate 16 Blood Pressure 157/88 H Pulse Oximetry 99 Oxygen Delivery 03/02/24 16:00 03/02/24 18:00 03/02/24 20:22 Temperature 98 F Pulse Rate 88 44 L Respiratory Rate 18 Blood Pressure 150/86 H Pulse Oximetry 100 96 Oxygen Delivery Room Air 03/02/24 20:00 03/02/24 20:00 03/02/24 22:00 Temperature Pulse Rate 49 L 59 L Respiratory Rate Blood Pressure Pulse Oximetry 99 Oxygen Delivery Room Air 03/02/24 23:01 03/02/24 23:39 03/03/24 00:00 Temperature 98 F Pulse Rate 79 60 72 Respiratory Rate 18 Blood Pressure 144/80 H Pulse Oximetry 96 99 Oxygen Delivery CPAP 03/03/24 00:00 03/03/24 02:29 03/03/24 02:00 Tempera
[2024-03-03] MEDS: MONTELUKAST SODIUM 10 MG TABLET PO (20:28)
[2024-03-04] VITALS (16 sets, daily range): BP systolic 125–168; BP diastolic 38–89; PULSE 42–77; RESP 16–20; TEMP 36.4–37.2; O2SAT 96–100
[2024-03-04 05:10] LABS: Hematocrit 38.3 % (37.0-47.0); Hemoglobin 11.4 g/dL (12.0-15.0); Mean Corpuscular HGB Conc 29.8 g/dl (32-36); Mean Corpuscular Hemoglobin 25.8 pg (26-34); Mean Corpuscular Volume 86.7 fl (80-100); Mean Platelet Volume 11.1 fl (7.4-10.4); Platelet Count Result 177 k/mm3 (150-375); Red Blood Count 4.42 M/mm3 (4.2-5.4); Red Cell Distribution Width 14.2 % (11.5-14.5); White Blood Count 8.3 K/mm3 (4.5-10.0)
[2024-03-04 05:23] LABS: Anion Gap 11 mmol/L (4-12); Blood Urea Nitrogen 29 mg/dL (7-17); Calcium 9.2 mg/dL (8.4-10.2); Carbon Dioxide 23 mmol/L (22-30); Chloride 104 mmol/L (98-107); Estimated CRCL calculation 30 ml/min; Estimated Glomerular Filt Rate 39; Glucose 116 mg/dL (65-110); Magnesium 1.9 mg/dL (1.6-2.3); Sodium 138 mmol/L (137-145)
[2024-03-04] MEDS: LEVOTHYROXINE SODIUM 125 MCG TABLET PO (05:58)
[2024-03-04] MEDS: ISOSORBIDE MONONITRATE 60 MG TAB.ER.24H PO (08:18)
[2024-03-04] MEDS: allopurinoL 100 MG TABLET 200 MG PO (08:18)
[2024-03-04] MEDS: POTASSIUM CHLORIDE 20 MEQ ER TABLET PO ×3 (08:18→18:14)
[2024-03-04] MEDS: CLOPIDOGREL BISULFATE 75 MG TABLET PO (08:19)
[2024-03-04] MEDS: CHOLECALCIFEROL 1,000 UNITS TABLET 1000 UNITS PO (08:19)
[2024-03-04] MEDS: PANTOPRAZOLE 40 MG TABLET PO (08:19)
[2024-03-04] MEDS: FUROSEMIDE 40 MG TABLET PO (08:19)
[2024-03-04] MEDS: ASPIRIN 81 MG ENTERIC TABLET PO (08:19)
[2024-03-04] MEDS: bisoproloL fumarate 2.5 MG TABLET PO (08:19)
--- NOTE | 2024-03-04 09:31 | PM.PNCARD ---
Progress Note: A&P Assessment and Plan (1) Coronary artery disease: Code(s): I25.10 - Atherosclerotic heart disease of [place] coronary artery without angina pectoris Status: Acute Assessment and Plan: Continue aspirin, clopidogrel, isosorbide. (2) Jaw pain: Code(s): R68.84 - Jaw pain Status: Acute Assessment and Plan: Resolved (3) Malignant neoplasm of breast in remission: Code(s): C50.919 - Malignant neoplasm of unspecified site of unspecified female breast Status: Acute (4) Combined congestive systolic and diastolic heart failure: Code(s): I50.40 - Unspecified combined systolic (congestive) and diastolic (congestive) heart failure Status: Chronic Assessment and Plan: Continue furosemide and above meds. Up titrate regimen as need be or as BP will allow (5) Cardiomyopathy: Code(s): I42.9 - Cardiomyopathy, unspecified Status: Acute Assessment and Plan: As above (6) Bradycardia: Code(s): R00.1 - Bradycardia, unspecified Status: Acute Assessment and Plan: Significant bradycardia noted specially at night. Repeat EKG now. Discontinue bisoprolol. She should not be discharged today Plan Will start/advanced medical anti ischemic therapy in this elderly lady with multivessel coronary disease, previous surgical revascularization 10 years ago and also known to have breast cancer current status of that is unclear at the time of this dictation. We will have to try to treat her angina medically. If this does not succeed and aggressive/invasive evaluation becomes necessary this ideally should not performed at this hospital as she is graft dependent and has a moderately low ejection fraction by most recent echo. Subjective Date/time seen: 03/04/24 09:31 Interval history: This is an 83-year-old lady admitted because of chest pain. The patient is known to have coronary disease and follows with my partner, Dr. Draper but I do not believe I have per previously involved in her care. She has a history of coronary disease dating back to 2013 when she says she presented to this hospital with acute coronary syndrome. She describes being transferred to [facility] for evaluation and at which time surgical revascularization was recommended. The charts referred to a 4 vessel bypass operation having been done at that time. I do not have the details of her operative note at the time of this dictation. She has been followed in our since then sporadically and she states she has last been seen in the fall of 2022 at which time she was felt to be relatively stable. In recent years she does have according to the notes a noted decline in her left ventricular systolic function with an ejection fraction in the range of 20-25%. Date of service 03/03/2024: Denies any chest pain. Has some shortness of breath. No significant swelling Date of service 03/04/2024: Significant bradycardia noted overnight. Generally while patient was sleeping she was bradycardic and did have a 5.2nd pause. Otherwise asymptomatic and she is frustrated by phlebotomy sticks this morning. No chest pain, jaw pain or shortness breath. Wants to go home Review of Systems Constitutional: Constitutional: Reports lethargy Eyes: Eyes: Reports no additional eye complaints ENT: Reports system reviewed and no additional complaints, except as documented Cardiovascular: Cardiovascular: Reports as per HPI Respiratory: Respiratory: Reports no additional respiratory complaints Gastrointestinal: Gastrointestinal: Reports no additional gastrointestinal complaints Musculoskeletal: Musculoskeletal: Reports no additional musculoskeletal complaints Integumentary/Breasts: Skin/Breast: Reports system reviewed and no additional complaints, except as docu Neurologic: Reports system reviewed and no additional complaints, except as documented Endocrine: Endocrine: Reports no additio
--- NOTE | 2024-03-04 09:34 | ECG_ITS ---
Test Date: 2024-03-04 09:52:25 Measurements Intervals [place] Rate: 51 P: 0 TN: 0 QRS: -4 QRSD: 101 T: 136 QT: 442 QTc: 408 Interpretive Statements SINUS OR ECTOPIC ATRIAL BRADYCARDIA WITH FIRST DEGREE AV BLOCK ATRIAL PREMATURE COMPLEX LEFT VENTRICULAR HYPERTROPHY WITH ST-T CHANGE BORDERLINE R WAVE PROGRESSION, ANTERIOR LEADS INFERIOR INFARCT, AGE INDETERMINATE BASELINE WANDER- V3-V4 ABNORMAL ECG Compared to ECG 03/03/2024 02:54:46 HEART RATE HAS INCREASED Electronically Signed On 03-04-2024 12:01:07 CDT by Jc Barbosa D.O.
--- NOTE | 2024-03-04 12:45 | PM.IMPN ---
Progress Note: A&P Assessment and Plan (1) Coronary artery disease: Code(s): I25.10 - Atherosclerotic heart disease of [place] coronary artery without angina pectoris Status: Acute (2) Jaw pain: Code(s): R68.84 - Jaw pain Status: Acute (3) Bradycardia: Code(s): R00.1 - Bradycardia, unspecified Status: Acute Plan HPI via Christie Hunter ANTENNA MACHINE OPERATOR: 83-year-old female presents here with jaw pain with PMH of quadruple bypass, ROULA, pacemaker in place, breast cancer (s/p mastectomy and chemo radiation), pulmonary hypertension, CHF, CAD, DVT, DC, and asthma. The patient presents here via EMS from a local urgent care and [facility] for further evaluation of jaw pain with exertion for the past 2-3 days. Did have one episode while at rest before bed. She describes the pain as right sided, achy, radiating back towards her ear, intermittent, aggravated by activity (walking), and alleviated by resting. No associated chest pain, nausea, diaphoresis, fatigue, palpations, excessive fatigue, or dizziness. Endorsing accompanying shortness of breath with same alleviating/aggravating factors as the chest pain. The patient has a previous history of DC and her presenting symptoms were jaw pain on the right side in 2011 (unsure on exact year), treated at [facility]. During that same visit she had the DC she underwent a quadruple bypass. Follows with Luiz OTTO at [facility]/[place] for her cardiac care. Initial VS at presentation: 98.3? F, HR 52, RR 21, 165/78, and 98% on RA. ED workup showed: No leukocytosis, hemoglobin 11.0, creatinine 1.5 and GFR 33 (previously 1.43 and GFR 37 on 08/18/2023), mild bump in LFTs, and initial troponin 0.013. CXR showed no acute cardiopulmonary disease, did show chronic findings without significant change. Initial EKG showed AFib with slow ventricular response, rate 59. ----- Jaw pain continues to be resolved. Surface echocardiogram repeat completed on 03/02/2024. Cardiology recommendations appreciated. 03/04: Patient is going to stay on telemetry unit to monitor bradycardia. Bisoprolol has been discontinued. Check electrolytes in the morning. Continue aspirin, Plavix, isosorbide. Continue furosemide for combined systolic-diastolic heart failure. Currently euvolemic. Monitoring blood pressure, institute further medical therapy for cardiomyopathy as allowed. Full code SCDs. Subjective Date/time seen: 03/04/24 12:45 Interval history: No major acute overnight events. Patient had significant bradycardia which was asymptomatic although. Review of Systems Review of Systems: All systems reviewed & are unremarkable except as noted in HPI and below (Subjective) Exam Const: General: comfortable and no acute distress Eyes: Pupils: Equal, round and reactive pupils present Neck: Neck: supple Resp: Effort & Inspection: normal respiratory effort Auscultation: clear to auscultation bilaterally Cardio: Rate: regular rate Rhythm: regular rhythm GI: GI Palp: Yes Soft to palpation Extrem: General: no edema Objective Data Vital Signs Vital Signs: Vital Signs - 24 hr 03/03/24 14:00 03/03/24 16:21 03/03/24 16:00 Temperature 97.6 F Pulse Rate 51 L 50 L 63 Respiratory Rate 20 Blood Pressure 137/56 L Pulse Oximetry 93 Oxygen Delivery Fraction of Inspired Oxygen 03/03/24 18:00 03/03/24 19:54 03/03/24 20:00 Temperature 97.8 F Pulse Rate 54 L 57 L 60 Respiratory Rate 18 Blood Pressure 117/51 L Pulse Oximetry 99 Oxygen Delivery Fraction of Inspired Oxygen 03/03/24 22:17 03/03/24 22:00 03/03/24 23:22 Temperature 97.8 F Pulse Rate 74 57 L Respiratory Rate 18 Blood Pressure 128/74 Pulse Oximetry 99 Oxygen Delivery CPAP Fraction of Inspired Oxygen 03/04/24 00:00 03/04/24 02:00 03/04/24 04:00 Temperature Pulse Rate 52 L 47 L 66 Respiratory Rate Blood Pressure Pulse Oximetry
[2024-03-04] MEDS: MONTELUKAST SODIUM 10 MG TABLET PO (20:22)
[2024-03-05] VITALS (11 sets, daily range): BP systolic 102–167; BP diastolic 63–68; PULSE 40–63; RESP 20–24; TEMP 36.7–36.8; O2SAT 95–97
[2024-03-05 04:42] LABS: Anion Gap 12 mmol/L (4-12); Blood Urea Nitrogen 30 mg/dL (7-17); Calcium 9.2 mg/dL (8.4-10.2); Carbon Dioxide 23 mmol/L (22-30); Chloride 104 mmol/L (98-107); Estimated CRCL calculation 30 ml/min; Estimated Glomerular Filt Rate 39; Glucose 114 mg/dL (65-110); Potassium 3.7 mmol/L (3.4-5.0); Sodium 139 mmol/L (137-145)
[2024-03-05] MEDS: LEVOTHYROXINE SODIUM 125 MCG TABLET PO (05:30)
[2024-03-05] MEDS: FUROSEMIDE 40 MG TABLET PO (08:22)
[2024-03-05] MEDS: CLOPIDOGREL BISULFATE 75 MG TABLET PO (08:22)
[2024-03-05] MEDS: POTASSIUM CHLORIDE 20 MEQ ER TABLET PO ×2 (08:22→12:08)
[2024-03-05] MEDS: ISOSORBIDE MONONITRATE 60 MG TAB.ER.24H PO (08:22)
[2024-03-05] MEDS: allopurinoL 100 MG TABLET 200 MG PO (08:22)
[2024-03-05] MEDS: CHOLECALCIFEROL 1,000 UNITS TABLET 1000 UNITS PO (08:22)
[2024-03-05] MEDS: ASPIRIN 81 MG ENTERIC TABLET PO (08:22)
[2024-03-05] MEDS: PANTOPRAZOLE 40 MG TABLET PO (08:23)
--- NOTE | 2024-03-05 13:44 | PM.PNCARD ---
Progress Note: A&P Assessment and Plan (1) Coronary artery disease: Code(s): I25.10 - Atherosclerotic heart disease of [place] coronary artery without angina pectoris Status: Deleted Assessment and Plan: Continue aspirin, clopidogrel, isosorbide. (2) Jaw pain: Code(s): R68.84 - Jaw pain Status: Acute Assessment and Plan: Resolved (3) Malignant neoplasm of breast in remission: Code(s): C50.919 - Malignant neoplasm of unspecified site of unspecified female breast Status: Acute (4) Combined congestive systolic and diastolic heart failure: Code(s): I50.40 - Unspecified combined systolic (congestive) and diastolic (congestive) heart failure Status: Chronic Assessment and Plan: Continue furosemide and above meds. Up titrate regimen as need be or as BP will allow (5) Cardiomyopathy: Code(s): I42.9 - Cardiomyopathy, unspecified Status: Acute Assessment and Plan: As above (6) Bradycardia: Code(s): R00.1 - Bradycardia, unspecified Status: Acute Assessment and Plan: Significant bradycardia noted specially at night. Improving with discontinuation on bisoprolol. Will discharge with an outpatient soybean specialties cook. Plan Will start/advanced medical anti ischemic therapy in this elderly lady with multivessel coronary disease, previous surgical revascularization 10 years ago and also known to have breast cancer current status of that is unclear at the time of this dictation. We will have to try to treat her angina medically. If this does not succeed and aggressive/invasive evaluation becomes necessary this ideally should not performed at this hospital as she is graft dependent and has a moderately low ejection fraction by most recent echo. Subjective Date/time seen: 03/05/24 13:44 Interval history: This is an 83-year-old lady admitted because of chest pain. The patient is known to have coronary disease and follows with my partner, Dr. Draper but I do not believe I have per previously involved in her care. She has a history of coronary disease dating back to 2013 when she says she presented to this hospital with acute coronary syndrome. She describes being transferred to [facility] for evaluation and at which time surgical revascularization was recommended. The charts referred to a 4 vessel bypass operation having been done at that time. I do not have the details of her operative note at the time of this dictation. She has been followed in our since then sporadically and she states she has last been seen in the fall of 2022 at which time she was felt to be relatively stable. In recent years she does have according to the notes a noted decline in her left ventricular systolic function with an ejection fraction in the range of 20-25%. Date of service 03/03/2024: Denies any chest pain. Has some shortness of breath. No significant swelling Date of service 03/04/2024: Significant bradycardia noted overnight. Generally while patient was sleeping she was bradycardic and did have a 5.2nd pause. Otherwise asymptomatic and she is frustrated by phlebotomy sticks this morning. No chest pain, jaw pain or shortness breath. Wants to go home Date of service 03/05/2024: Feels well today. No significant bradycardia. Wants to go home. Review of Systems Constitutional: Constitutional: Reports lethargy Eyes: Eyes: Reports no additional eye complaints ENT: Reports system reviewed and no additional complaints, except as documented Cardiovascular: Cardiovascular: Reports as per HPI Respiratory: Respiratory: Reports no additional respiratory complaints Gastrointestinal: Gastrointestinal: Reports no additional gastrointestinal complaints Musculoskeletal: Musculoskeletal: Reports no additional musculoskeletal complaints Integumentary/Breasts: Skin/Breast: Reports system reviewed and no additional complaints, except as docu Neurolog
--- NOTE | 2024-03-05 14:31 | PM.DS ---
DS: Admitting Diagnosis Discharge Date 03/05/24 Admitting Diagnosis jaw pain DS: Discharge Diagnosis Discharge Diagnosis (1) Bradycardia: Code(s): R00.1 - Bradycardia, unspecified Status: Acute (2) Coronary artery disease: Code(s): I25.10 - Atherosclerotic heart disease of [place] coronary artery without angina pectoris Status: Acute (3) Jaw pain: Code(s): R68.84 - Jaw pain Status: Acute DS: Summary Hospital Course Hospital Course: HPI via Christie Dale CLASP MACHINE OPERATOR: 83-year-old female presents here with jaw pain with PMH of quadruple bypass, ROULA, pacemaker in place, breast cancer (s/p mastectomy and chemo radiation), pulmonary hypertension, CHF, CAD, DVT, AK, and asthma. The patient presents here via EMS from a local urgent care and [facility] for further evaluation of jaw pain with exertion for the past 2-3 days. Did have one episode while at rest before bed. She describes the pain as right sided, achy, radiating back towards her ear, intermittent, aggravated by activity (walking), and alleviated by resting. No associated chest pain, nausea, diaphoresis, fatigue, palpations, excessive fatigue, or dizziness. Endorsing accompanying shortness of breath with same alleviating/aggravating factors as the chest pain. The patient has a previous history of AK and her presenting symptoms were jaw pain on the right side in 2011 (unsure on exact year), treated at [facility]. During that same visit she had the AK she underwent a quadruple bypass. Follows with Luiz OTTO at [facility]/[place] for her cardiac care. Initial VS at presentation: 98.3? F, HR 52, RR 21, 165/78, and 98% on RA. ED workup showed: No leukocytosis, hemoglobin 11.0, creatinine 1.5 and GFR 33 (previously 1.43 and GFR 37 on 08/18/2023), mild bump in LFTs, and initial troponin 0.013. CXR showed no acute cardiopulmonary disease, did show chronic findings without significant change. ----- Jaw pain continued to be resolved. Isosorbide mononitrate 60mg po qam was added and she tolerated that. risks versus benefits of medications discussed and she agreed. Surface echocardiogram repeat completed on 03/02/2024. she was monitored for bradycardia and taken off of bisoprolol. she was asymptomatic. cardiology given clearance for discharge with 7 day heart monitor. stable for d/c to home on 03/05. she has a follow up with Dr. Draper on 03/14 and is advised to attend that appointment. pt agrees. Time Spent with Patient Time attestation: Total time spent providing and/or coordinating discharge services: Exam Const: General: comfortable and no acute distress Eyes: Pupils: Equal, round and reactive pupils present Neck: Neck: supple Resp: Effort & Inspection: normal respiratory effort Auscultation: clear to auscultation bilaterally Cardio: Rate: regular rate Rhythm: regular rhythm Heart sounds: no gallops, no murmurs and no rubs GI: GI Palp: Yes Soft to palpation and No Tenderness to palpation present (GI) Extrem: General: no edema Other: varicose veins Psych: Mental Status: mental status grossly normal DS: Data Data Completed and Pending Labs on day of discharge: Labs from last 24 hours 03/05/24 04:09 Sodium 139 Potassium 3.7 Chloride 104 Carbon Dioxide 23 Anion Gap 12 BUN 30 H Creatinine 1.30 H Estim Creat Clear Calc 30 Estimated GFR 39 L Glucose 114 H Calcium 9.2 Magnesium 2.0 Discharge Plan Discharge Attending physician on discharge: Linda Wang Consulting providers: Obdulia Bills Discharging Clinician: Linda Wang Patient Disposition: Home, Self-Care Activity: may shower Diet: heart healthy Patient Instructions: Antibiotic Form, Heart Failure (DC), Bradycardia (GEN) Stand Alone Forms: General Discharge Information Follow-up/Referrals: Malik Draper MD [Physician] - Keep Reg. Scheduled Appt. (you have an appt with Dr. Draper in 03/14.)
== END 2024-03-05 15:43 | disposition home or self-care (01) | DRG 303 ==
LOC: ANHED 15:37 → ANHIMU 17:55
PROVIDERS: Student in an Organized Health Care Education/Training Program; Admitting Provider Internal Medicine; Emergency Provider Emergency Medicine; PCP Family Medicine Adolescent Medicine; Visit Provider General Practice
DX: I25.10 Atherosclerotic heart disease of native coronary artery without angina pectoris (principal); I13.0 Hypertensive heart and chronic kidney disease with heart failure and stage 1 through stage 4 chronic kidney disease, or unspecified chronic kidney disease; I50.42 Chronic combined systolic (congestive) and diastolic (congestive) heart failure; R68.84 Jaw pain; R00.1 Bradycardia, unspecified; N18.32 Chronic kidney disease, stage 3b; E03.9 Hypothyroidism, unspecified; G47.33 Obstructive sleep apnea (adult) (pediatric); I25.5 Ischemic cardiomyopathy; I25.2 Old myocardial infarction; J45.909 Unspecified asthma, uncomplicated; Z95.0 Presence of cardiac pacemaker; Z85.3 Personal history of malignant neoplasm of breast; Z86.718 Personal history of other venous thrombosis and embolism; Z79.82 Long term (current) use of aspirin; Z92.21 Personal history of antineoplastic chemotherapy; Z95.1 Presence of aortocoronary bypass graft; Z99.89 Dependence on other enabling machines and devices; Z96.653 Presence of artificial knee joint, bilateral; Z90.49 Acquired absence of other specified parts of digestive tract; Z90.89 Acquired absence of other organs; Z87.891 Personal history of nicotine dependence
CPT/HCPCS: 36415; 71045; 80048; 80053; 83735; 84484; 85025; 85027; 93005; 94660; 96374; 99285; A9270; C8929; G0378; Q9957

== ENCOUNTER 2024-03-09 10:15 | Outpatient (CLI) | payer MEDICARE, SELFPAY ==
--- NOTE | ~2024-03-09 | CT_ITS ---
CT Scan of the Chest without Contrast: Clinical Indication: Breast cancer Technique: Contiguous sections were acquired throughout the chest without intravenous contrast. Dose reduction technique was used on this scan by utilizing automated exposure control and iterative recon struction technique. The dose-length product (DLP) was 501.95 mGy-cm. COMPARISON: 01/12/2023 Findings: There is no evidence of any significant mediastinal, hilar or axillary lymphadenopathy. There are ext ensive atherosclerotic calcifications of the aorta and coronary arteries.. There is no evidence of pleural or pericardial effusion. Large calcified right lower lobe granuloma present. Probable focal scarring or chronic atelectasis in the right middle lobe. Probable mild post radiation change in the left upper lobe. No suspicious pul monary nodule seen. Images through the upper abdomen reveal no abnormalities. Probable prior left mastectomy and possible prior right breast surgery or mastectomy. Impression: Chronic pulmonary findings, as above, which are stable from prior exam. No evidence for active malign shalonda or metastatic disease. Postoperative changes of both breasts. Correlate with surgical history. Reviewed, dictated and finalized at location . Impression: Chronic pulmonary findings, as above, which are stable from prior exam. No evid ence for active malignancy or metastatic disease. Postoperative changes of both breasts. Correlate with surgical history.
== END 2024-03-09 10:16 ==
LOC: MICIMG 10:16
PROVIDERS: PCP Family Medicine Adolescent Medicine; Visit Provider Internal Medicine Medical Oncology
DX: C50.412 Malignant neoplasm of upper-outer quadrant of left female breast (principal); Z17.0 Estrogen receptor positive status [ER+]; R22.2 Localized swelling, mass and lump, trunk; J84.10 Pulmonary fibrosis, unspecified
CPT/HCPCS: 71250

== ENCOUNTER 2024-08-13 08:20 | Outpatient (CLI) | payer MEDICARE, SELFPAY ==
--- NOTE | ~2024-08-13 | CT_ITS ---
CT Scan of the Chest without Contrast: Clinical Indication: Breast cancer Technique: Contiguous sections were acquired throughout the chest without intravenous contrast. Dose reduction technique was used on this scan by utilizing automated exposure control and iterative recon struction technique. The dose-length product (DLP) was 261.32 mGy-cm. COMPARISON: 03/09/2024 Findings: There is no evidence of any significant mediastinal, hilar or axillary lymphadenopathy. Status post C ABG. There is no evidence of pleural or pericardial effusion. Large calcified right lower lobe granuloma present. Probable minimal postradiation changes in the lef t upper lobe. No suspicious pulmonary nodule. Images through the upper abdomen reveal no abnormalities. Status post prior left mastectomy, possible right mastectomy as well. Impression: No evidence for active malignancy or metastatic disease. Stable pulmonary findings, as above. Reviewed, dictated and finalized at [facility]. NA Impression: No evidence for active malignancy or metastatic disease. Stable pulmonary findings, as above.
== END 2024-08-13 08:21 | disposition home or self-care (01) ==
LOC: MICIMG 08:20
PROVIDERS: PCP Family Medicine Adolescent Medicine; Visit Provider Internal Medicine Medical Oncology
DX: C50.412 Malignant neoplasm of upper-outer quadrant of left female breast (principal); Z17.0 Estrogen receptor positive status [ER+]; R22.2 Localized swelling, mass and lump, trunk; I25.810 Atherosclerosis of coronary artery bypass graft(s) without angina pectoris; J84.10 Pulmonary fibrosis, unspecified
CPT/HCPCS: 71250

== ENCOUNTER 2025-02-01 10:16 | Outpatient (CLI) | payer MEDICARE, SELFPAY ==
--- NOTE | ~2025-02-01 | CT_ITS ---
Clinical Indication: Weight loss, metastatic breast cancer, anemia CT Scan of the Chest, Abdomen, and Pelvis without Contrast: Technique: Contiguous sections were acquired throughout the chest, abdomen, and pelvis without IV con trast administration. Dose reduction technique was used on this scan by utilizing automated exposure control and iterative reconstruction technique. The dose-length product (DLP) was 823.52 mGy-cm. Comparison: 08/13/2024 Findings: There is no evidence of any significant mediastinal, hilar or axillary lymphadenopathy. There is exte nsive atherosclerotic calcification of the aorta and coronary arteries. Bilateral mastectomy change n oted. There is no evidence of pleural or pericardial effusion. There is probable chronic scarring or atelectasis at the right middle lobe and lingula. Large calcifi ed right lower lobe granuloma is unchanged. The liver, spleen, pancreas, adrenals and left kidney are within normal limits. Cholecystectomy clips are present. Mild atrophic change of the right kidney with punctate nonobstructing stone. There are atherosclerotic calcifications of the aorta. IVC filter present. No lymphadenopathy. No bowel obstruction or bowel wall thickening. There is no evidence to suggest acute appendicitis. Urinary bladder is unremarkable. No pelvic mass seen. Status post hysterectomy. No ascites. Impression: No evidence for active malignancy or metastatic disease. Bilateral mastectomy change. Probable chronic scarring or atelectasis at the right middle lobe and lingula. Punctate nonobstructing right renal stone. Reviewed, dictated and finalized at [facility]. Impression: No evidence for active malignancy or metastatic disease. Bilateral mastectomy c hange. Probable chronic scarring or atelectasis at the right middle lobe and lingula. Punctate nonobstructing right renal stone.
== END 2025-02-01 10:17 | disposition home or self-care (01) ==
PROVIDERS: PCP Nurse Practitioner Family; Visit Provider Internal Medicine Medical Oncology
DX: C50.412 Malignant neoplasm of upper-outer quadrant of left female breast (principal); Z17.0 Estrogen receptor positive status [ER+]; R63.4 Abnormal weight loss; R91.8 Other nonspecific abnormal finding of lung field; N20.0 Calculus of kidney
CPT/HCPCS: 71250; 74176

== ENCOUNTER 2025-02-26 13:13 | Emergency (ER) | payer MEDICARE, SELFPAY ==
--- NOTE | ~2025-02-26 | XR_ITS ---
XR humerus RT Ordering provider: Fabi Brennan APRN History: . pain . Comparison: None. FINDINGS: BONES: No acute fracture or dislocation. 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 SOFT TISSUES: Normal. IMPRESSION: No definite acute osseous abnormality right humerus. Reviewed, dictated and finalized at location A.
--- NOTE | ~2025-02-26 | XR_ITS ---
Right Shoulder Technique: AP and scapular Y views were obtained. Clinical History: Pain Findings: No fracture or dislocation is seen. Osseous alignment is anatomic. The glenohumeral and acr omioclavicular joints demonstrate mild degenerative change. Soft tissues are unremarkable. Impression: Mild degenerative changes, as above. Reviewed, dictated and finalized at location . Impression: Mild degenerative changes, as above.
--- NOTE | 2025-02-26 13:15 | ED.UPPEXIN ---
HPI - Extremity Injury (Upper) General Chief Complaint: Extremity Injury, Upper Stated Complaint: Right Shoulder Pain Time Seen by Provider: 02/26/25 13:25 Source: patient, RN notes reviewed and old records reviewed Mode of arrival: ambulatory Limitations: no limitations History of Present Illness HPI narrative: 84-year-old female presents to the [facility] with right shoulder pain, denies injury. Symptoms started you last night. Did take a tramadol today. Does have decreased range of motion. No erythema, ecchymosis noted on exam. Patient states when she moves her wrist and elbow she is having pain to the shoulder area. Related Data Home Medications ?Medication ?Instructions ?Recorded ?Confirmed ?Last Taken ?Type cholecalciferol (vitamin D3) 25 25 mcg PO QAM 12/15/20 07/25/24 02/29/24 History mcg (1,000 unit) capsule evolocumab 420 mg/3.5 mL 1 ea subcut MONTHLY 01/22/22 07/25/24 02/15/24 History subcutaneous wearable injector (Repatha Pushtronex) atenolol 25 mg tablet mg 02/26/25 Unknown History dabigatran etexilate 75 mg capsule mg PO 02/26/25 Unknown History digoxin 125 mcg (0.125 mg) tablet 02/26/25 Unknown History ferrous sulfate 325 mg (65 mg mg 02/26/25 Unknown History iron) tablet meclizine 12.5 mg tablet mg 02/26/25 Unknown History Allergies Allergy/AdvReac Type Severity Reaction Status Date / Time erythromycin base Allergy Severe Itching Verified 02/26/25 13:33 amoxicillin Allergy Unknown Itching Verified 02/26/25 13:33 clavulanic acid Allergy Unknown Itching Verified 02/26/25 13:33 Penicillins Allergy Unknown Itching Verified 02/26/25 13:33 adhesive AdvReac Mild Itching Verified 02/26/25 13:33 codeine AdvReac Unknown Nausea and Verified 02/26/25 13:33 Vomiting lisinopril AdvReac Unknown Headache Verified 02/26/25 13:33 and dizziness, no angioedema losartan AdvReac Unknown Dizziness Verified 02/26/25 13:33 metronidazole AdvReac Unknown Nausea and Verified 02/26/25 13:33 Vomiting, ITCHING morphine AdvReac Unknown Nausea and Verified 02/26/25 13:33 Vomiting [id number] Reductase AdvReac Unknown Joint Pain Verified 02/26/25 13:33 Inhibitor (Owxlmcx-Xft-Ngp Reductase Inhibitor) Review of Systems Review of Systems: All systems reviewed & are unremarkable except as noted in HPI and below Constitutional: Constitutional: Reports no additional constitutional complaints ENT: Reports system reviewed and no additional complaints, except as documented Cardiovascular: Cardiovascular: Denies chest pain and Denies dyspnea Respiratory: Respiratory: Reports no additional respiratory complaints, Denies chest congestion, Denies cough and Denies dyspnea Musculoskeletal: Musculoskeletal: Reports as per HPI Integumentary/Breasts: Skin/Breast: Reports system reviewed and no additional complaints, except as docu [facility] Past Medical History Medical History Raynauds phenomenon Hx of deep venous thrombosis Wound dehiscence Nonsustained ventricular tachycardia Ischemic cardiomyopathy Status post ICD insertion and subsequent generator explant. Obstructive sleep apnea On CPAP with nasal pillows. Hypothyroidism Combined congestive systolic and diastolic heart failure Echocardiogram on 12/17/2020 showed severe global hypokinesis, grade 2 diastolic dysfunction, with a calculated EF of 25%, and moderate pulmonary hypertension. Pulmonary hypertension History of [place] (myocardial infarction) (~2013) History of left breast cancer Status post mastectomy and chemoradiation. Low serum IgG2 subclass level Persistent asthma without complication Surgical History Surgical History H/O mastectomy right mastectomy w/right axillary sentinel lymph node biopsy 02/04/22 History of right mastectomy (01/2022) History of coronary artery bypass graft (2013) History of cataract extraction History of thyroidectomy History of sinus surgery (2015) History of left mastectomy (2011) History of bilateral knee arthroplasty History of partial colectomy (2013) History of cholecystectomy Family History Family History Mother Family history of osteoarthritis Father Heart disease Son Muscular dystrophy Sibling Acute myocardial infarction Other Breast cancer Social History Social History Social History: Surrogate decision maker: Ирина Duenas and Adela Nielsen, daughters. Code status: Full code. Smoking packs per day: 0.5 Smoking cigarettes per day: 10.0 Years smoked: 25 Smoking pack-years: 12.50 Smoking status: Former smoker Tobacco type: cigarettes Second hand tobacco smoke exposure: Yes Smoking end date: 02/12/85 Additional smoking assessment comments: quit 50 years ago Alcohol intake: never Substance use: never Substance use type: does not use Do You Feel Safe in your Home?: Yes Lack of Transportation: No Lack of Food: Never True Current Housing: I Have Housing Concerned About Future Housing: No Difficulty Paying Gas/Electric Bills: No Difficulty Paying for Meds: No Currently Unemployed: No Education: Grade School Difficulty w/ Childcare or Family Care: No Living arrangements: with family Additional living arrangements comments: WITH HANDICAPPED SON Occupation/Education: occupation Gender identity (if verbalized by the patient): Female Sexual Orientation (if Verbalized by the Patient): Straight or Heterosexual Spiritual care concerns: No Agree to blood products: Yes Comments At the time of my signature, I reviewed and agree with the nursing past medical, surgical, social, and family history. There is no relevant family history pertinent to the patient complaint. Exam Const: General: cooperative, no acute distress, well developed, alert, ill appearing chronically, uncomfortable and well nourished Nutritional Appearance: well nourished Orientation/consciousness: patient oriented x3 Limitations: no limitations HENMT: Head: normal to inspection Eyes: General: appearance normal, both eyes and all related structures Alignment and Position: alignment normal Neck: Neck: normal visual inspection, full ROM, no lymphadenopathy and no meningeal signs Chest: Chest palpation & inspection: normal inspection of the chest Resp: Effort & Inspection: normal respiratory effort and able to speak in complete sentences Cardio: Rate: regular rate Skin: General skin exam: normal color and no rashes or lesions noted Neuro: General: patient oriented x3, gait normal, moves all extremities and no meningeal signs Cognition (Neuro): normal cognition Speech: normal speech Gait exam (Neuro): Normal gait present Extrem: General: normal to inspection, full ROM, capillary refill normal and normal gait Right upper extremity: normal capillary refill, shoulder/upper arm tenderness and abnormal ROM held in an abnormal fashion, pain with active ROM and pain with passive ROM; no swelling, no lacerations, no ecchymosis, no crepitus, no foreign bodies and no penetrating wound and elbow/forearm abnormal ROM (Pain to the shoulder with range of motion of the elbow); no tenderness and no swelling Psych: Appearance: grossly normal and well kempt Mental Status: mental status grossly normal Speech and movement: Normal speech and movement present and Clear speech present Affect: normal affect Attitude: cooperative Course Course Level of Care: Express Care Visit Vital Signs Vital signs: Vital Signs Temperature 99.2 F 02/26/25 13:22 Pulse Rate 59 L 02/26/25 13:22 Respiratory Rate 16 02/26/25 13:22 Blood Pressure 156/78 H 02/26/25 13:22 Pulse Oximetry 100 02/26/25 13:22 Oxygen Delivery Room Air 02/26/25 13:22 Temperature 99.2 F 02/26/25 13:22 Pulse Rate 59 L 02/26/25 13:22 Respiratory Rate 16 02/26/25 13:22 Blood Pressure 156/78 H 02/26/25 13:22 Pulse Oximetry 100 02/26/25 13:22 Oxygen Delivery Room Air 02/26/25 13:22 Reviewed MDM - Extremity Injury (Upper) MDM Narrative Medical decision making narrative: Patient sitting in exam room. Patient is nontoxic vitals are stable except blood pressure mildly elevated. Patient presents with right shoulder discomfort. Humerus and shoulder x-ray are negative for fractures. Exam most consistent with a tendinitis, encouraged continued use home medications. Sling was applied, patient reports decreased discomfort. Patient appropriate for outpatient treatment with close follow-up Discussed with patient and family member signs and symptoms to proceed to the emergency room which both verbalized understanding Discharge instructions reviewed with patient, as well as provided in writing per nursing staff. The instructions also include specific and strict return/GO TO THE ER as well as f/u information. All questions have been answered, and the patient deny any further questions with discharge and discharge plan. Some parts of this dictation were generated by voice recognition software and may contain typographical and/or grammatical inaccuracies. Differential Diagnosis Differential diagnosis: Likely other (Clavicle fracture, humeral fracture, sprain, strain, osteoarthritis, tendinitis) Imaging Data Radiologist's impression: Right Shoulder Technique: AP and scapular Y views were obtained. Clinical History: Pain Findings: No fracture or dislocation is seen. Osseous alignment is anatomic. The glenohumeral and acromioclavicular joints demonstrate mild degenerative change. Soft tissues are unremarkable. Impression: Mild degenerative changes, as above. XR humerus RT Ordering provider: Fabi Brennan APRN History: . pain . Comparison: None. FINDINGS: BONES: No acute fracture or dislocation. 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 SOFT TISSUES: Normal. IMPRESSION: No definite acute osseous abnormality right humerus. Critical Care Time Critical Care Time Critical Care Time: No Discharge Plan Discharge Clinical Impression: Acute pain of right shoulder Patient Disposition: Home Condition: Stable Instructions: Tendinitis (ED), Shoulder Pain (ED) Additional Instructions: Either apply ice or heat whichever feels better every 2-3 hours for 15-20 minutes while awake Do not wear the sling for 24 hours a day. You should remove and do mild range of motion Take your tramadol as prescribed by your primary Follow-up with primary care provider within 1 week for further evaluation, testing and treatment For new or worsening symptoms go directly to the emergency room Patient Language: Salvadorean Prescriptions: No Action atenolol 25 mg tablet meclizine 12.5 mg tablet ferrous sulfate 325 mg (65 mg iron) tablet digoxin 125 mcg (0.125 mg) tablet dabigatran etexilate 75 mg capsule PO levalbuterol tartrate [Xopenex HFA] 45 mcg/actuation HFA aerosol inhaler 1 - 2 puff inhalation Q6H PRN (Reason: shortness of breath or wheezing) Qty: 15 2RF isosorbide mononitrate 60 mg Tablet Extended Release 24 Hr 60 mg PO QAM Qty: 30 0RF cholecalciferol (vitamin D3) 25 mcg (1,000 unit) Capsule 25 mcg PO QAM Repatha Pushtronex 420 mg/3.5 mL wearable injector 1 ea SUBCUT MONTHLY Rx Instructions: Pt takes on the 1st of the month tramadol 50 mg tablet 50 mg PO Q6H PRN (Reason: pain) Qty: 60 5RF furosemide 40 mg tablet See Rx Instructions .ROUTE .COMPLEX Qty: 90 2RF Dose Instruction: TAKE 1 TABLET BY MOUTH EVERY MORNING Rx Instructions: TAKE 1 TABLET BY MOUTH EVERY MORNING montelukast 10 mg tablet See Rx Instructions .ROUTE .COMPLEX Qty: 90 3RF Dose Instruction: TAKE 1 TABLET BY MOUTH EVERY DAY Rx Instructions: TAKE 1 TABLET BY MOUTH EVERY DAY allopurinol 100 mg tablet See Rx Instructions .ROUTE .COMPLEX Qty: 180 2RF Dose Instruction: TAKE 2 TABLETS BY MOUTH ONCE DAILY FOR GOUT Rx Instructions: TAKE 2 TABLETS BY MOUTH ONCE DAILY FOR GOUT omeprazole 20 mg capsule,delayed release(DR/EC) See Rx Instructions .ROUTE .COMPLEX Qty: 180 2RF Dose Instruction: 20 MG ORALLY TWICE A DAY NEEDED FOR ACID REFLUX Rx Instructions: 20 MG ORALLY TWICE A DAY NEEDED FOR ACID REFLUX levothyroxine 125 mcg tablet 125 mcg PO DAILY Qty: 90 2RF gabapentin 300 mg capsule 300 mg PO BID Qty: 60 6RF potassium chloride [Klor-Con M20] 20 mEq tablet,ER particles/crystals 20 meq PO TIDWM Qty: 270 1RF Follow-up/Referrals: Bhupinder,JAYY Clark [Primary Care Provider] - 2 Weeks Time of Disposition: 14:17
[2025-02-26 13:22] VITALS: BP 156/78; PULSE 59; RESP 16; TEMP 37.3; O2SAT 100
== END 2025-02-26 14:25 | disposition home or self-care (01) ==
PROVIDERS: Emergency Provider Nurse Practitioner; PCP Nurse Practitioner Family
DX: M25.511 Pain in right shoulder (principal); Z87.891 Personal history of nicotine dependence; I27.20 Pulmonary hypertension, unspecified; I50.40 Unspecified combined systolic (congestive) and diastolic (congestive) heart failure; I73.00 Raynaud's syndrome without gangrene; Z86.718 Personal history of other venous thrombosis and embolism; I25.5 Ischemic cardiomyopathy; G47.33 Obstructive sleep apnea (adult) (pediatric); I25.2 Old myocardial infarction; Z85.3 Personal history of malignant neoplasm of breast; Z90.13 Acquired absence of bilateral breasts and nipples; Z95.1 Presence of aortocoronary bypass graft; E89.0 Postprocedural hypothyroidism; Z96.653 Presence of artificial knee joint, bilateral; Z95.810 Presence of automatic (implantable) cardiac defibrillator
CPT/HCPCS: 73030; 73060; 99213; A4565; G0463